=== PATIENT | female | born 1980 | race Hispanic/Latino ===

== ENCOUNTER 2018-08-12 15:16 | Emergency (ER) | payer OTHER, SELFPAY ==
--- NOTE | 2018-08-12 17:41 | EDPHYS ---
Physician Documentation [facility] Name: Melia Tavares Age: 38 yrs Sex: Female : 1980 Arrival Date: 08/12/2018 Time: 15:21 Bed 11 Private MD: ED Physician Carlos Acevedo HPI: 08/12 16:40 This 38 yrs old Female presents to ER via Ambulatory with complaints of Cough, cp Fever. 16:40 The patient or guardian reports cough, that is intermittent, with no sputum. Onset: The cp symptoms/episode began/occurred 2 day(s) ago. Severity of symptoms: in the emergency department the symptoms are unchanged, despite home interventions. Associated signs and symptoms: Pertinent positives: chest pain, sore throat, Pertinent negatives: diarrhea, fever, vomiting. 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 - Social history:: Smoking status: Patient/guardian denies using tobacco. - Ebola Screening: : No symptoms or risks identified at this time. ROS: 16:45 Constitutional: Negative for chills, fever, poor PO intake. cp 16:45 Eyes: Negative for injury, pain, redness, and discharge. cp 16:45 ENT: Positive for sore throat, Negative for drainage from ear(s), ear pain, difficulty swallowing, difficulty handling secretions. 16:45 Respiratory: Positive for cough, Negative for shortness of breath, wheezing. 16:45 Abdomen/GI: Negative for abdominal pain, vomiting, diarrhea, constipation. 16:45 : Negative for urinary symptoms. 16:45 Skin: Negative for cellulitis, rash. 16:45 Neuro: Negative for headache, weakness. 16:45 All other systems are negative. Exam: 16:50 Constitutional: The patient appears in no acute distress, alert, awake, non-toxic, well cp developed, well nourished. 16:50 Head/Face: Normocephalic, atraumatic. cp 16:50 Eyes: Periorbital structures: appear normal, Conjunctiva: normal, no exudate, no injection, Sclera: no appreciated abnormality, Lids and lashes: appear normal, bilaterally. 16:50 ENT: External ear(s): are unremarkable, Ear canal(s): are normal, clear, TM's: bulging, is not appreciated, bilaterally, dullness, bilaterally, erythema, is not appreciated, bilaterally, Nose: is normal, Mouth: Lips: moist, Oral mucosa: moist, Posterior pharynx: Airway: no evidence of obstruction, patent, Tonsils: no enlargement, no exudate, swelling, is not appreciated, erythema, that is mild, exudate, is not appreciated, Voice: is normal. 16:50 Neck: ROM/movement: is normal, is supple, without pain, no range of motions limitations, no meningismus, no nuchal rigidity, Lymph nodes: no appreciated lymphadenopathy. 16:50 Chest/axilla: Inspection: normal, Palpation: is normal, no crepitus, no tenderness. 16:50 Cardiovascular: Rate: normal, Rhythm: regular. 16:50 Respiratory: the patient does not display signs of respiratory distress, Respirations: labored breathing, is not present, accessory muscle usage, is absent, intercostal retractions, are absent, splinting, is not noted, tachypnea, is not appreciated, Breath sounds: bronchial sounds, that are mild, are heard diffusely, decreased breath sounds, are not appreciated, stridor, is not appreciated, + upper airway congestion. wheezing: is not appreciated. 16:50 Abdomen/GI: Exam negative for discomfort, distension, guarding, Inspection: abdomen appears normal. 16:50 Back: pain, is absent, ROM is normal. 16:50 Skin: cellulitis, is not appreciated, no rash present. Vital Signs: 15:42 BP 132 / 66; Pulse 96; Resp 18 S; Temp 99.2(O); Pulse Ox 98% on R/A; Weight 90.72 kg aa5 (R); Height 5 ft. 2 in. (157.48 cm) (R); Pain 8/10; 15:42 Body Mass Index 36.58 (90.72 kg, 157.48 cm) aa5 MDM: 15:57 Patient medically screened. cp 17:00 Differential Diagnosis: Bronchitis Influenza Upper Respiratory Infection Otitis Media cp Viral Syndrome Pneumonia. 17:40 Data reviewed: vital signs, nurses notes, lab test result(s), and as a result, I will cp discharge patient. 17:40 Counseling: I had a detailed discussion with the patient and/or guardian regarding: the cp historical points, exam findings, and any diagnostic results supporting the discharge/admit diagnosis, lab results, to return to the emergency department if symptoms worsen or persist or if there are any questions or concerns that arise at home. 08/12 16:34 Order name: Influenza Screen (a \T\ B); Complete Time: 17:40 08/12 16:34 Order name: Strep; Complete Time: 17:40 08/12 17:40 Interpretation: Reviewed. cp Administered Medications: No medications were administered Disposition: 08/13 11:43 Co-signature as Attending Physician, Carlos Acevedo MD. Disposition: 08/12/18 17:41 Discharged to Home. Impression: Streptococcal pharyngitis, Cough. - Condition is Stable. - Discharge Instructions: Strep Throat, Cough, Adult. - Prescriptions for Amoxicillin 875 mg Oral Tablet - take 1 tablet by ORAL route every 12 hours for 10 days; 20 tablet. Tessalon Perles 100 mg Oral Capsule - take 1 capsule by ORAL route every 8 hours As needed; 20 capsule. Albuterol Sulfate 90 mcg/actuation - inhale 1-2 puff by INHALATION route every 4-6 hours; 1 Inhaler. - Work release form, Medication Reconciliation Form, Thank You Letter, Antibiotic Education, Prescription Opioid Use form. - Follow up: Private Physician; When: 2 - 3 days; Reason: Recheck today's complaints. - Problem is new. - Symptoms have improved. Signatures: Dispatcher [employer] EDCaleb Arreaga RN RN sg Tessa Kay RN RN aa5 Luis Nash PA PA cp Starr, Gregory, MD MD gs Corrections: (The following items were deleted from the chart) 08/12 17:47 17:41 08/12/2018 17:41 Discharged to Home. Impression: Streptococcal pharyngitis; sg Cough. Condition is Stable. Forms are Medication Reconciliation Form, Thank You Letter, Antibiotic Education, Prescription Opioid Use. Follow up: Private Physician; When: 2 - 3 days; Reason: Recheck today's complaints. Problem is new. Symptoms have improved. cp
--- NOTE | 2018-08-12 17:41 | ER ---
Nurse's Notes [facility] Name: Melia Tavares Age: 38 yrs Sex: Female : 1980 Arrival Date: 08/12/2018 Time: 15:21 Bed 11 Private MD: Diagnosis: Streptococcal pharyngitis;Cough Presentation: 08/12 15:40 Presenting complaint: Patient states: sore throat, cough, and fever that began aa5 . Transition of care: patient was not received from another setting of care. Onset of symptoms was August 2018. Risk Assessment: Do you want to hurt yourself or someone else? Patient reports no desire to harm self or others. Initial Sepsis Screen: Does the patient meet any 2 criteria? No. Patient's initial sepsis screen is negative. Does the patient have a suspected source of infection? No. Patient's initial sepsis screen is negative. Care prior to arrival: None. 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 - Social history:: Smoking status: Patient/guardian denies using tobacco. - Ebola Screening: : No symptoms or risks identified at this time. Screenin:32 Abuse screen: Denies threats or abuse. Denies injuries from another. Nutritional iw screening: No deficits noted. Tuberculosis screening: No symptoms or risk factors identified. Fall Risk None identified. Assessment: 17:00 General: Appears in no apparent distress. Behavior is calm, cooperative. Pain: iw Complains of pain in throat. Neuro: Level of Consciousness is awake, alert, obeys commands, Oriented to person, place, time, situation, Moves all extremities. Full function. Cardiovascular: Patient's skin is warm and dry. Respiratory: Respiratory effort is even, unlabored, Respiratory pattern is regular, symmetrical. Derm: Skin is intact, is healthy with good turgor. Derm: Musculoskeletal: Range of motion: intact in all extremities. Vital Signs: 15:42 BP 132 / 66; Pulse 96; Resp 18 S; Temp 99.2(O); Pulse Ox 98% on R/A; Weight 90.72 kg aa5 (R); Height 5 ft. 2 in. (157.48 cm) (R); Pain 8/10; 15:42 Body Mass Index 36.58 (90.72 kg, 157.48 cm) aa5 ED Course: 15:21 Patient arrived in ED. mr 15:41 Triage completed. aa5 15:41 Arm band placed on. aa5 15:55 Rupinder Viramontes, RN is Primary Nurse. iw 15:57 Luis Nash PA is PHCP. cp 15:57 Carlos Acevedo MD is Attending Physician. cp 17:15 Patient has correct armband on for positive identification. Bed in low position. Call sg light in reach. Pulse ox on. NIBP on. 17:32 No provider procedures requiring assistance completed. Patient did not have IV access iw during this emergency room visit. Administered Medications: No medications were administered Outcome: 17:40 Discharged to home ambulatory, with family. sg 17:40 Condition: good 17:40 Discharge instructions given to patient, Instructed on discharge instructions, follow up and referral plans. medication usage, safety practices, Demonstrated understanding of instructions, follow-up care, medications, Prescriptions given X 3. 17:41 Discharge ordered by MD. cp 17:47 Patient left the ED. sg Signatures: Caleb Berger RN RN sg Rivera, Mary mr Rupinder Viramontes, RN JEANNE Tessa Kay RN RN [facility] Luis Nash PA PA cp
[2018-08-12 18:04] VITALS: BP 132/66; TEMP 99.2; O2SAT 98
== END 2018-08-12 17:47 | disposition home or self-care (01) ==
LOC: ER 15:16
DX: J02.0 Streptococcal pharyngitis (principal); R05 Cough
CPT/HCPCS: 87081; 87804; 99283

== ENCOUNTER 2019-02-20 20:39 | Observation (INO) | payer SELFPAY ==
[2019-02-20 21:17] LABS: Absolute Lymphocytes (CBC) 3.4 K/uL (0.7-4.9); Absolute Monocytes 0.9 K/uL (0.1-1.3); Absolute Neutrophil 7.1 K/uL (1.8-8.0); Basophils % 0.8 % (0-1.3); Eosinophils % 1.6 % (0-4.4); Hematocrit 41.9 % (36.0-45.0); Lymphocytes % 29.3 % (15.3-44.8); Monocytes % 7.8 % (3.3-12.3); RBC Red Blood Cell Count 4.56 M/uL (3.86-4.86)
[2019-02-20 21:18] LABS: Protime INR 0.99
[2019-02-20 21:34] LABS: ALT/SGPT 44 U/L (12-78); AST/SGOT 24 U/L (15-37); Albumin 3.7 g/dL (3.4-5.0); Alkaline Phosphatase 89 U/L (45-117); BUN Blood Urea Nitrogen 12 mg/dL (7-18); Bicarbonate 25 mmol/L (21-32); Bilirubin Direct < 0.1 mg/dL (0-0.2); Bilirubin Total 0.3 mg/dL (0.2-1.0); Glucose Level 313 mg/dL (74-106); NT PRO-BNP 7 pg/mL (<125); Potassium 3.5 mmol/L (3.5-5.1); Protein, Total 7.4 g/dL (6.4-8.2); Sodium Level 138 mmol/L (136-145); Troponin (Emerg Dept Use Only) < 0.02 ng/mL (0.0-0.045)
[2019-02-20] MEDS ORDERED: NA CHLORIDE 0.9% 1,000 ML ONE (22:07)
--- NOTE | 2019-02-20 23:02 | EDPHYS ---
Physician Documentation [facility] Name: Melia Tavares Age: 38 yrs Sex: Female : 1980 Arrival Date: 02/20/2019 Time: 20:41 Bed 8 Private MD: ED Physician Luis Mckay HPI: 02/20 21:45 This 38 yrs old Female presents to ER via EMS with complaints of Chest Pain > jr8 30 y/o. 21:45 The patient or guardian reports chest pain that is located primarily in the anterior jr8 chest wall, right. The pain does not radiate. Associated signs and symptoms: The patient has no apparent associated signs or symptoms. The chest pain is described as a pressure. Duration: The patient or guardian reports a single episode, that is now resolved. Modifying factors: The symptoms are alleviated by ASA, 81mg X4. NTG, X1. the symptoms are aggravated by nothing. Severity of pain: At its worst the pain was moderate in the emergency department the pain has resolved. The patient has not experienced similar symptoms in the past. The patient has not recently seen a physician. Historical: - Allergies: 20:55 No Known Allergies; aa1 - Home Meds: 20:55 Vitamin B-12 Oral daily [Active]; aa1 - PMHx: 20:55 Asthma; aa1 - PSHx: 20:55 Tubal ligation; aa1 - Immunization history:: Flu vaccine is not up to date. - Social history:: Smoking status: Patient uses tobacco products, denies chronic smoking, but will smoke occasionally. - Ebola Screening: : No symptoms or risks identified at this time. ROS: 21:45 Eyes: Negative for injury, pain, redness, and discharge, ENT: Negative for injury, jr8 pain, and discharge, Neck: Negative for injury, pain, and swelling, Respiratory: Negative for shortness of breath, cough, wheezing, and pleuritic chest pain, Abdomen/GI: Negative for abdominal pain, nausea, vomiting, diarrhea, and constipation, Back: Negative for injury and pain, MS/Extremity: Negative for injury and deformity, Skin: Negative for injury, rash, and discoloration, Neuro: Negative for headache, weakness, numbness, tingling, and seizure. 21:45 Cardiovascular: Positive for chest pain, Negative for edema, orthopnea, palpitations, paroxysmal nocturnal dyspnea. Exam: 21:45 Eyes: Pupils equal round and reactive to light, extra-ocular motions intact. Lids and jr8 lashes normal. Conjunctiva and sclera are non-icteric and not injected. Cornea within normal limits. Periorbital areas with no swelling, redness, or edema. ENT: Nares patent. No nasal discharge, no septal abnormalities noted. Tympanic membranes are normal and external auditory canals are clear. Oropharynx with no redness, swelling, or masses, exudates, or evidence of obstruction, uvula midline. Mucous membranes moist. Neck: Trachea midline, no thyromegaly or masses palpated, and no cervical lymphadenopathy. Supple, full range of motion without nuchal rigidity, or vertebral point tenderness. No Meningismus. Cardiovascular: Regular rate and rhythm with a normal S1 and S2. No gallops, murmurs, or rubs. Normal PMI, no JVD. No pulse deficits. Respiratory: Lungs have equal breath sounds bilaterally, clear to auscultation and percussion. No rales, rhonchi or wheezes noted. No increased work of breathing, no retractions or nasal flaring. Abdomen/GI: Soft, non-tender, with normal bowel sounds. No distension or tympany. No guarding or rebound. No evidence of tenderness throughout. Back: No spinal tenderness. No costovertebral tenderness. Full range of motion. Skin: Warm, dry with normal turgor. Normal color with no rashes, no lesions, and no evidence of cellulitis. MS/ Extremity: Pulses equal, no cyanosis. Neurovascular intact. Full, normal range of motion. Neuro: Awake and alert, GCS 15, oriented to person, place, time, and situation. Cranial nerves II-XII grossly intact. Motor strength 5/5 in all extremities. Sensory grossly intact. Cerebellar exam normal. Normal gait. Vital Signs: 20:44 BP 139 / 88; Pulse 88; Resp 18; Temp 98.5; Pulse Ox 97% on R/A; Weight 94.8 kg; Height aa1 5 ft. 2 in. (157.48 cm); Pain 0/10; 21:30 BP 125 / 78; Pulse 89; Resp 18; Pulse Ox 97% on R/A; Pain 0/10; aa1 22:29 BP 129 / 84; Pulse 87; Resp 16; Pulse Ox 100% on R/A; Pain 0/10; [facility] 23:13 BP 132 / 84; Pulse 84; Resp 18; Pulse Ox 99% on R/A; Pain 0/10; [facility] 02/21 00:30 BP 123 / 74; Pulse 82; Resp 16; Temp 98.2; Pulse Ox 98% on R/A; Pain 0/10; [facility] 02/20 20:44 Body Mass Index 38.23 (94.80 kg, 157.48 cm) [facility] MDM: 02/20 20:45 Patient medically screened. 23:00 HEART Score: History: Moderately Suspicious (1), ECG: Normal (0), Age: < or = 45 years jr (0), Risk Factors: 1 or 2 risk factors (1), [DM] [+ Family HX] Troponin: < or = 1 x Normal Limit (0), Total Score =. Data reviewed: vital signs, nurses notes, lab test result(s), EKG, radiologic studies, plain films. Data interpreted: Pulse oximetry: on room air is 100 %. Interpretation: normal. Counseling: I had a detailed discussion with the patient and/or guardian regarding: the historical points, exam findings, and any diagnostic results supporting the discharge/admit diagnosis, lab results, radiology results, the need for further work-up and treatment in the hospital. 02/20 20:45 Order name: CBC with Diff; Complete Time: 21:23 [facility] 02/20 20:45 Order name: LFT's; Complete Time: 21:39 [facility] 02/20 20:45 Order name: Magnesium; Complete Time: 21:39 [facility] 02/20 20:45 Order name: NT PRO-BNP; Complete Time: 21:39 [facility] 02/20 20:45 Order name: PT-INR; Complete Time: 21:23 [facility] 02/20 20:42 Order name: EKG; Complete Time: 20:42 [facility] 02/20 20:45 Order name: Troponin (emerg Dept Use Only); Complete Time: 21:39 [facility] 02/20 20:45 Order name: XRAY Chest (1 view) [facility] 02/20 20:46 Order name: Basic Metabolic Panel; Complete Time: 21:39 [facility] 02/21 00:33 Order name: Echo with Doppler [facility] 02/21 00:33 Order name: Lipid Profile [facility] 02/20 20:42 Order name: EKG - Nurse/Tech; Complete Time: 20:55 aa 02/20 20:45 Order name: Cardiac monitoring; Complete Time: 20:55 [facility] 02/20 20:45 Order name: IV Saline Lock; Complete Time: 20:55 jr 02/20 20:45 Order name: Labs collected and sent; Complete Time: 21:03 [facility] 02/20 20:45 Order name: O2 Per Protocol; Complete Time: 20:55 [facility] 02/20 20:45 Order name: O2 Sat Monitoring; Complete Time: 20:55 [facility] 02/21 00:33 Order name: EKG Electrocardiogram [facility] 02/21 00:34 Order name: EKG Electrocardiogram [facility] Administered Medications: :55 Drug: NS 0.9% 1000 ml Route: IV; Rate: 1000 ml; Site: left antecubital; cc3 23:00 Follow up: IV Status: Completed infusion; IV Intake: 1000ml aa1 Disposition: 02/21 06:42 Co-signature as Attending Physician, Luis Mckay MD I agree with the assessment and sabrina plan of care. Disposition: 02/20/19 23:02 Hospitalization ordered by Renetta Jose for Observation. Preliminary diagnosis is Chest pain, unspecified. - Bed requested for Telemetry/MedSurg (observation). - Status is Observation. aa1 - Condition is Stable. - Problem is new. - Symptoms have improved. UTI on Admission? No Signatures: Dispatcher [employer] [facility] Yari Harper RN RN aa1 Luis Mckay MD MD cha Roszak, Josh, PA PA jr8 Anum Johnson, RN RN Chana Carver cc3 Corrections: (The following items were deleted from the chart) 02/20 21:47 21:44 GLUCATNOID ordered. [facility] 02/21 00:43 02/20 23:02 Hospitalization Ordered by Renetta Jose MD for Observation. Preliminary cg diagnosis is Chest pain, unspecified. Bed requested for Telemetry/MedSurg (observation). Status is Observation. Condition is Stable. Problem is new. Symptoms have improved. UTI on Admission? No. jr8 02/21 01:21 00:43 02/20/2019 23:02 Hospitalization Ordered by Renetta Jose MD for Observation. aa1 Preliminary diagnosis is Chest pain, unspecified. Bed requested for Telemetry/MedSurg (observation). Status is Observation. Condition is Stable. Problem is new. Symptoms have improved. UTI on Admission? No. cg
--- NOTE | 2019-02-20 23:02 | ER ---
Nurse's Notes [facility] Name: Melia Tavares Age: 38 yrs Sex: Female : 1980 Arrival Date: 02/20/2019 Time: 20:41 Bed 8 Private MD: Diagnosis: Chest pain, unspecified Presentation: 02/20 20:44 Presenting complaint: EMS states: pt called reporting a sudden onset of chest pressure aa1 that began while she was feeding a kitten at approx 2000 this evening. Reports giving pt 324 mg ASA PO IT BUSINESS ANALYST and NTG 0.4 mg SL x 1 which resolved her from completely. Upon arrival to ED NAD noted. Denies any CP at this time. Transition of care: patient was not received from another setting of care. Onset of symptoms was February 20, 2019 at 20:00. Risk Assessment: Do you want to hurt yourself or someone else? Patient reports no desire to harm self or others. Initial Sepsis Screen: Does the patient meet any 2 criteria? No. Patient's initial sepsis screen is negative. Does the patient have a suspected source of infection? No. Patient's initial sepsis screen is negative. Care prior to arrival: Medication(s) given: ASA, 81 mg, x 4, Nitroglycerin, 0.4 mg SL x 1, IV initiated. 20 GA, in the left antecubital area. 20:44 Method Of Arrival: [facility]: [facility] aa1 20:44 Acuity: KATY 2 aa1 Historical: - Allergies: 20:55 No Known Allergies; aa1 - Home Meds: 20:55 Vitamin B-12 Oral daily [Active]; aa1 - PMHx: 20:55 Asthma; aa1 - PSHx: 20:55 Tubal ligation; aa1 - Immunization history:: Flu vaccine is not up to date. - Social history:: Smoking status: Patient uses tobacco products, denies chronic smoking, but will smoke occasionally. - Ebola Screening: : No symptoms or risks identified at this time. Screenin:48 Abuse screen: Denies threats or abuse. Denies injuries from another. Nutritional aa1 screening: No deficits noted. Tuberculosis screening: No symptoms or risk factors identified. Fall Risk IV access (20 points). Assessment: 20:48 General: Appears in no apparent distress. comfortable, obese, Behavior is calm, aa1 cooperative, appropriate for age. Pain: Complains of pain in mid-sternal area Pain radiates to anterior aspect of right upper chest Pain currently is 0 out of 10 on a pain scale. at worst was 8 out of 10 on a pain scale. Quality of pain is described as pressure, Pain began 1999 this evening Alleviated by medications. Neuro: Level of Consciousness is awake, alert, obeys commands, Oriented to person, place, time, situation, Moves all extremities. Full function Speech is normal. Cardiovascular: Denies diaphoresis, nausea, palpitations, shortness of breath, Heart tones S1 S2 present Capillary refill < 3 seconds Clubbing of nail beds is absent JVD is absent Patient's skin is warm and dry. Rhythm is regular Chest pain is alleviated by NTG, resolved IT BUSINESS ANALYST. Respiratory: Airway is patent Respiratory effort is even, unlabored, Respiratory pattern is regular, symmetrical, Breath sounds are clear bilaterally. GI: No signs and/or symptoms were reported involving the gastrointestinal system. : No signs and/or symptoms were reported regarding the genitourinary system. EENT: No signs and/or symptoms were reported regarding the EENT system. Derm: Skin is intact, is healthy with good turgor, Skin is pink, warm \T\ dry. Musculoskeletal: Circulation, motion, and sensation intact. Capillary refill < 3 seconds. 21:30 Reassessment: Patient appears in no apparent distress at this time. Patient and/or aa1 family updated on plan of care and expected duration. Pain level reassessed. Patient is alert, oriented x 3, equal unlabored respirations, skin warm/dry/pink. Awaiting lab results. 22:20 Reassessment: Patient appears in no apparent distress at this time. Patient and/or aa1 family updated on plan of care and expected duration. Pain level reassessed. Patient is alert, oriented x 3, equal unlabored respirations, skin warm/dry/pink. Awaiting provider reassessment. 23:13 Reassessment: Patient appears in no apparent distress at this time. Patient and/or aa1 family updated on plan of care and expected duration. Pain level reassessed. Patient is alert, oriented x 3, equal unlabored respirations, skin warm/dry/pink. Pt to be admitted to hospital; awaiting admission orders from Dr. Jose. 02/21 00:53 Reassessment: Patient appears in no apparent distress at this time. Patient and/or aa1 family updated on plan of care and expected duration. Pain level reassessed. Patient is alert, oriented x 3, equal unlabored respirations, skin warm/dry/pink. Attempted to call report, nurse will call back. 01:14 Reassessment: Patient appears in no apparent distress at this time. Patient is alert, aa1 oriented x 3, equal unlabored respirations, skin warm/dry/pink. Report given to JEANNE Cardozo. Vital Signs: 02/20 20:44 BP 139 / 88; Pulse 88; Resp 18; Temp 98.5; Pulse Ox 97% on R/A; Weight 94.8 kg; Height aa1 5 ft. 2 in. (157.48 cm); Pain 0/10; 21:30 BP 125 / 78; Pulse 89; Resp 18; Pulse Ox 97% on R/A; Pain 0/10; aa1 22:29 BP 129 / 84; Pulse 87; Resp 16; Pulse Ox 100% on R/A; Pain 0/10; aa1 23:13 BP 132 / 84; Pulse 84; Resp 18; Pulse Ox 99% on R/A; Pain 0/10; aa1 02/21 00:30 BP 123 / 74; Pulse 82; Resp 16; Temp 98.2; Pulse Ox 98% on R/A; Pain 0/10; aa1 02/20 20:44 Body Mass Index 38.23 (94.80 kg, 157.48 cm) aa1 ED Course: 02/20 20:41 Patient arrived in ED. aa1 20:44 Arm band placed on right wrist. Patient placed in an exam room, on a stretcher. EKG aa1 completed in triage. Results shown to MD. 20:44 Patient has correct armband on for positive identification. Placed in gown. Bed in low aa1 position. Call light in reach. Side rails up X2. nuclear monitoring technician on. Pulse ox on. NIBP on. Warm blanket given. Socks given. 20:44 Maintain EMS IV. Dressing intact. Site clean \T\ dry. Gauge \T\ site: 20g LAC. Patient aa 1 maintains SpO2 saturation greater than 95% on room air. 20:45 [facility]. jr8 20:45 Luis Mckay MD is Attending Physician. jr8 20:46 Triage completed. aa1 20:55 EKG done, by ED staff, reviewed by Magan GUEVARA. ag4 21:00 Initial lab(s) drawn, by me, sent to lab. aa1 21:02 Yari Harper RN is Primary Nurse. aa1 21:32 XRAY Chest (1 view) In Process Unspecified. EDMS 23:02 Renetta Jose MD is Hospitalizing Provider. jr8 02/21 00:52 No provider procedures requiring assistance completed. Patient admitted, IV remains in aa1 place. Administered Medications: 02/20 21:55 Drug: NS 0.9% 1000 ml Route: IV; Rate: 1000 ml; Site: left antecubital; cc3 23:00 Follow up: IV Status: Completed infusion; IV Intake: 1000ml aa1 Intake: 23:00 IV: 1000ml; Total: 1000ml. aa1 Outcome: 23:02 Decision to Hospitalize by Provider. jr8 02/21 01:19 Admitted to Tele accompanied by tech, via wheelchair, room 428, with chart, Report aa1 called to JEANNE Cardozo Condition: stable Instructed on the need for admit, Demonstrated understanding of instructions. 01:21 Patient left the ED. aa1 Signatures: Dispatcher [employer] Yari Castillo RN RN aa1 Magan Bernard PA PA jr8 hCana Carver cc3 Dorian Harper ag4
[2019-02-21] MEDS ORDERED: ALPRAZOLAM 0.25 MG TABLET PO PRN (00:29)
[2019-02-21] MEDS ORDERED: MORPHINE 4 MG/ML SYR IV PRN (00:29)
[2019-02-21 01:19] LABS: HDL Cholesterol 23 mg/dL (40-60); LDL Cholesterol, Calculated ND (<130)
[2019-02-21 01:32] VITALS: BMI 39.0
[2019-02-21 01:34] LABS: LDL, Direct 92 mg/dL (100-129)
--- NOTE | 2019-02-21 06:10 | P.HP ---
Certification for Inpatient Patient admitted to: Observation With expected LOS: <2 Midnights Patient will require the following post-hospital care: None Practitioner: I am a practitioner with admitting privileges, knowledge of patient current condition, hospital course, and medical plan of care. Services: Services provided to patient in accordance with Admission requirements found in Title 42 Section 412.3 of the Code of Federal Regulations Patient History Date of Service: 02/21/19 Reason for admission: Chest pain rule out acute coronary seemed History of Present Illness: Patient is a 38-year-old female came to the hospital with some chest pressure. She states that the feeling was like something was squeezing her. She decided to come into the emergency room for further evaluation. In the emergency room, her initial troponins and EKG did not reveal any abnormalities. She does have a strong family history of Coronary artery disease. Decision was made to observe the patient with serial troponins and an echocardiogram. If this is negative patient can get outpatient follow-up with Cardiology and further diagnostic studies per Cardiology recommendation. Allergies No Known Allergies Allergy (Unverified 10/07/12 18:07) Home Medications: Vitamin B Complex [B Complex] 1 each PO DAILY 02/21/19 - Past Medical/Surgical History Has patient received pneumonia vaccine in the past: No Diabetic: No Past Medical History: Patient denies medical history -: Tubal ligation - Family History Father Medical History: Heart disease - Social History Smoking Status: Current some day smoker Alcohol use: No CD- Drugs: No Caffeine use: Yes Place of Residence: Home Review of Systems 10-point ROS is otherwise unremarkable Physical Examination - Vital Signs Temperature: 97.9 F Blood Pressure: 118/71 Pulse: 85 Respirations: 18 Pulse Ox (%): 97 - Physical Exam General: Alert, In no apparent distress, Oriented x3 HEENT: Atraumatic, PERRLA, Mucous membr. moist/pink, EOMI, Sclerae nonicteric Neck: Supple, 2+ carotid pulse no bruit, No LAD, Without JVD or thyroid abnormality Respiratory: Clear to auscultation bilaterally, Normal air movement Cardiovascular: Regular rate/rhythm, Normal S1 S2, No murmurs Gastrointestinal: Normal bowel sounds, Soft and benign, Non-distended, No tenderness Musculoskeletal: No clubbing, No swelling, No tenderness Integumentary: No rashes Neurological: Normal gait, Normal speech, Normal strength at 5/5 x4 extr, Normal tone, Sensation intact, Cranial nerves 3-12 intact, Normal affect Lymphatics: No axilla or inguinal lymphadenopathy - Studies Laboratory Data (last 24 hrs) 02/20/19 21:00: Triglycerides 502 H, Cholesterol 170, LDL Cholesterol Direct 92 L, HDL Cholesterol 23 L, Cholesterol/HDL Ratio 7.39 02/20/19 21:00: PT 11.7, INR 0.99 02/20/19 21:00: WBC 11.7 H, Hgb 14.1, Hct 41.9, Plt Count 260 02/20/19 21:00: Sodium 138, Potassium 3.5, BUN 12, Creatinine 0.71, Glucose 313 H, Magnesium 2.0, Total Bilirubin 0.3, AST 24, ALT 44, Alkaline Phosphatase 89 Assessment & Plan - Problems (Diagnosis) (1) Chest pain, rule out acute myocardial infarction Current Visit: Yes Status: Acute - Plan 1. Serial troponins and EKG 2. Cardiology consultation 3. Echocardiogram and will need further outpatient testing if okay with Cardiology 4. Anti-platelet therapy, anti coagulation, beta-saira, statin, and O2 as needed 5. IV morphine for pain 6. Nitro p.r.n. 7. Lipid profile 8. DVT prophylaxis Discharge Plan: Home Plan to discharge in: 24 Hours - Advance Directives Does patient have a Living Will: No Does patient have a Durable POA for Healthcare: No - Code Status/Comfort Care Code Status Assessed: Yes Code Status: Full Code Critical Care: No Time Spent Managing PTS Care (In Minutes): 45
--- NOTE | 2019-02-21 08:01 | RAD REPORT ---
EXAM DESCRIPTION: RAD - Chest Single View - 02/20/2019 9:32 pm CLINICAL HISTORY: Chest pain, chest pressure COMPARISON: May 2010 TECHNIQUE: AP portable chest image was obtained 2104 hours . FINDINGS: Lung volumes are low. No peripheral mass, consolidation, failure or volume overload findin gs. Adjusting for shallow inspiration and large body habitus, lung markings are not substantially dif ferent from comparison. Heart and vasculature are normal. No measurable pleural effusion and no pneum othorax. No acute bony abnormality seen. No acute aortic findings suspected. IMPRESSION: No acute cardiopulmonary process. No significant interval change.
[2019-02-21] MEDS ORDERED: ENOXAPARIN 40 MG/0.4 ML SQ SCH (09:00)
[2019-02-21] MEDS ORDERED: ASPIRIN EC 81 MG TAB PO SCH (09:00)
[2019-02-21] MEDS ORDERED: METOPROLOL TAR 50 MG TAB PO SCH (09:00)
[2019-02-21 09:11] VITALS: O2SAT 100
--- NOTE | 2019-02-21 10:29 | EKG ---
Test Date: 2019-02-20 Test Time: 20:49:36 Card Room Manager: [id number] MEASUREMENT RESULTS: Intervals: Rate: 90 SC: 144 QRSD: 86 QT: 376 QTc: 459 [place]: P: 42 SC: 144 QRS: 10 T: 19 INTERPRETIVE STATEMENTS: Normal sinus rhythm Anterior infarct, age undetermined Abnormal ECG No previous ECG available for comparison Electronically Signed On 02-21-19 10:28:41 CDT by Rhys Davila
[2019-02-21 12:11] VITALS: BP 125/68; TEMP 98.1
--- NOTE | 2019-02-21 13:08 | P.SSS ---
Patient History Date of Service: 02/21/19 Reason for admission: Chest pain rule out acute coronary seemed History of Present Illness: Patient is a 38-year-old female came to the hospital with some chest pressure. She states that the feeling was like something was squeezing her. She decided to come into the emergency room for further evaluation. In the emergency room, her initial troponins and EKG did not reveal any abnormalities. She does have a strong family history of Coronary artery disease. Decision was made to observe the patient with serial troponins and an echocardiogram. If this is negative patient can get outpatient follow-up with Cardiology and further diagnostic studies per Cardiology recommendation. Allergies No Known Allergies Allergy (Unverified 10/07/12 18:07) Home medications list reviewed: Yes Home Medications: Vitamin B Complex [B Complex] 1 each PO DAILY 02/21/19 - Past Medical/Surgical History Has patient received pneumonia vaccine in the past: No Diabetic: No -: Tubal ligation - Family History Father -: Heart disease - Social History Smoking Status: Current some day smoker Alcohol use: No CD- Drugs: No Caffeine use: Yes Place of Residence: Home Review of Systems 10-point ROS is otherwise unremarkable Physical Examination - Vital Signs Temperature: 98.1 F Blood Pressure: 125/68 Pulse: 83 Respirations: 18 Pulse Ox (%): 97 - Physical Exam General: Alert, In no apparent distress, Oriented x3, Obese HEENT: Atraumatic, PERRLA, Mucous membr. moist/pink, EOMI, Sclerae nonicteric Neck: Supple, 2+ carotid pulse no bruit, No LAD, Without JVD or thyroid abnormality Respiratory: Clear to auscultation bilaterally, Normal air movement Cardiovascular: Regular rate/rhythm, Normal S1 S2 Gastrointestinal: Normal bowel sounds, No tenderness Musculoskeletal: No tenderness Integumentary: No rashes Neurological: Normal gait, Normal speech, Normal strength at 5/5 x4 extr, Normal tone, Normal affect Lymphatics: No axilla or inguinal lymphadenopathy - Studies Laboratory Data (last 24 hrs) 02/20/19 21:00: Triglycerides 502 H, Cholesterol 170, LDL Cholesterol Direct 92 L, HDL Cholesterol 23 L, Cholesterol/HDL Ratio 7.39 02/20/19 21:00: PT 11.7, INR 0.99 02/20/19 21:00: WBC 11.7 H, Hgb 14.1, Hct 41.9, Plt Count 260 02/20/19 21:00: Sodium 138, Potassium 3.5, BUN 12, Creatinine 0.71, Glucose 313 H, Magnesium 2.0, Total Bilirubin 0.3, AST 24, ALT 44, Alkaline Phosphatase 89 Treatment Summary: Chest pain resolved. Trop negative x 1. Patient hemodynamically stable. Risk factors include obesity and family history. ECHO done, normal with EF of 63% Patient wanted to go home. She did well through out the stay. She was counseled on lifestyle modifications including diet, exercise and weight loss. All questions were answered and patient verbalized understanding. She was discharged in a safe and stable manner. - Disposition Discharge Date: 02/21/19 Condition: GOOD Patient Discharge Instructions: Please follow up with your primary care physician in 2-3 days. Please return to the Emergency room for worsening symptoms. Diet: AHA Activity: Ad jennifer
--- NOTE | 2019-02-21 13:32 | ECHO ---
HEIGHT: 5 ft 2 in WEIGHT: 213 lb 8 oz DATE OF STUDY: 02/21/[address]: Renetta Jose MD 2-DIMENSIONAL: YES M.MODE: YES DOPPLER: YES COLOR FLOW: YES TDS: NO PORTABLE: NO DEFINITY: NO BUBBLE STUDY: NO DIAGNOSIS: CHEST PAIN RULE OUT ACS CARDIAC HISTORY: CATHERIZATION: NO SURGERY: NO PROSTHETIC VALVE: NO PACEMAKER: NO MEASUREMENTS (cm) DIASTOLIC (NORMALS) SYSTOLIC (NORMALS) IVSd 0.9 (0.6-1.2) LA Diam 3.6 (1.9-4.0) LVEF 63% LVIDd 4.3 (3.5-5.7) LVIDs 2.9 (2.0-3.5) %FS 34% LVPWd 1.0 (0.6-1.2) Ao Diam 2.6 (2.0-3.7) 2 DIMENSIONAL ASSESSMENT: RIGHT ATRIUM: NORMAL LEFT ATRIUM: NORMAL RIGHT VENTRICLE: NORMAL LEFT VENTRICLE: NORMAL TRICUSPID VALVE: NORMAL MITRAL VALVE: NORMAL PULMONIC VALVE: NORMAL AORTIC VALVE: NORMAL PERICARDIAL EFFUSION: NONE AORTIC ROOT: NORMAL LEFT VENTRICULAR WALL MOTION: NORMAL DOPPLER/COLOR FLOW: NORMAL COMMENTS: NORMAL 2D ECHOCARDIOGRAM WITH DOPPLER. TECHNOLOGIST: Allan FIELDS
== END 2019-02-21 16:39 | disposition home or self-care (01) ==
LOC: ER 20:39 → ERHOLD 02-21 00:51 → 4TH 02-21 01:15
PROVIDERS: ADMIT Hospitalist; ATTEND Family Medicine
DX: R07.9 Chest pain, unspecified (principal); R94.31 Abnormal electrocardiogram [ECG] [EKG]; E66.9 Obesity, unspecified; Z68.38 Body mass index [BMI] 38.0-38.9, adult; F17.200 Nicotine dependence, unspecified, uncomplicated; Z82.49 Family history of ischemic heart disease and other diseases of the circulatory system
CPT/HCPCS: 36415; 71045; 80048; 80061; 80076; 83735; 83880; 84484; 85025; 85610; 93005; 93306; 96360; 99285; G0378; J1650; J7030

== ENCOUNTER 2019-10-22 21:54 | Emergency (ER) | payer SELFPAY ==
[2019-10-22] MEDS ORDERED: SMZ./TMP. 800/160 MG TABLET ONE (23:00)
[2019-10-22] MEDS ORDERED: LIDOCAINE 2% MPF 5 ML VIAL ONE ×2 (23:00→23:35)
[2019-10-22] MEDS ORDERED: BUPIVACAINE 0.5% PF 10 ML VIAL ONE (23:01)
[2019-10-22] MEDS ORDERED: DOXYCYCLINE 100 MG CAP PO ONE (23:01)
[2019-10-22] MEDS ORDERED: BACI/NEOMYCIN/POLY OINT 15GM TOP ONE (23:01)
--- NOTE | 2019-10-22 23:25 | EDPHYS ---
Physician Documentation [facility] Name: Melia Tavarse Age: 39 yrs Sex: Female : 1980 Arrival Date: 10/22/2019 Time: 21:59 Bed 25 Private MD: ED Physician Luis Mckay HPI: 10/22 22:36 This 39 yrs old Female presents to ER via Wheelchair with complaints of Foot sabrina Pain. 22:36 The patient presents with decreased range of motion, pain, swelling, tenderness. The sabrina complaints affect the left foot, Left first toenail. Context: The problem was sustained inside. Onset: The symptoms/episode began/occurred 3 day(s) ago. Modifying factors: The symptoms are alleviated by elevation of extremity, the symptoms are aggravated by weight bearing, movement. Associated signs and symptoms: The patient has no apparent associated signs or symptoms. Severity of symptoms: At their worst the symptoms were mild, moderate, in the emergency department the symptoms are unchanged. The patient has not experienced similar symptoms in the past. DRUG PURCHASER: 10/23 00:16 unknown jv1 Historical: - Allergies: 10/22 22:10 No Known Allergies; dm5 - Home Meds: 22:10 Metformin Oral [Active]; dm5 - PMHx: 22:10 Asthma; Diabetes - NIDDM; dm5 - PSHx: 22:10 None; dm5 - Immunization history:: Adult Immunizations up to date. - Social history:: Smoking status: Patient denies any tobacco usage or history of. - Family history:: not pertinent. - Ebola Screening: : No symptoms or risks identified at this time. ROS: 22:36 Constitutional: Negative for fever, chills, and weight loss, Eyes: Negative for injury, sabrina pain, redness, and discharge, ENT: Negative for injury, pain, and discharge, Neck: Negative for injury, pain, and swelling, Cardiovascular: Negative for chest pain, palpitations, and edema, Respiratory: Negative for shortness of breath, cough, wheezing, and pleuritic chest pain, Abdomen/GI: Negative for abdominal pain, nausea, vomiting, diarrhea, and constipation, Back: Negative for injury and pain, : Negative for injury, bleeding, discharge, and swelling, Skin: Negative for injury, rash, and discoloration, Neuro: Negative for headache, weakness, numbness, tingling, and seizure, Psych: Negative for depression, anxiety, suicide ideation, homicidal ideation, and hallucinations, Allergy/Immunology: Negative for hives, rash, and allergies, Endocrine: Negative for neck swelling, polydipsia, polyuria, polyphagia, and marked weight changes, Hematologic/Lymphatic: Negative for swollen nodes, abnormal bleeding, and unusual bruising. 22:36 MS/extremity: Positive for erythema, pain, swelling, tenderness, of the Left first toenail. Exam: 22:36 Constitutional: This is a well developed, well nourished patient who is awake, alert, sabrina and in no acute distress. Head/Face: Normocephalic, atraumatic. Eyes: Pupils equal round and reactive to light, extra-ocular motions intact. Lids and lashes normal. Conjunctiva and sclera are non-icteric and not injected. Cornea within normal limits. Periorbital areas with no swelling, redness, or edema. ENT: Nares patent. No nasal discharge, no septal abnormalities noted. Tympanic membranes are normal and external auditory canals are clear. Oropharynx with no redness, swelling, or masses, exudates, or evidence of obstruction, uvula midline. Mucous membranes moist. Neck: Trachea midline, no thyromegaly or masses palpated, and no cervical lymphadenopathy. Supple, full range of motion without nuchal rigidity, or vertebral point tenderness. No Meningismus. Chest/axilla: Normal chest wall appearance and motion. Nontender with no deformity. No lesions are appreciated. Cardiovascular: Regular rate and rhythm with a normal S1 and S2. No gallops, murmurs, or rubs. Normal PMI, no JVD. No pulse deficits. Respiratory: Lungs have equal breath sounds bilaterally, clear to auscultation and percussion. No rales, rhonchi or wheezes noted. No increased work of breathing, no retractions or nasal flaring. Abdomen/GI: Soft, non-tender, with normal bowel sounds. No distension or tympany. No guarding or rebound. No evidence of tenderness throughout. Back: No spinal tenderness. No costovertebral tenderness. Full range of motion. Skin: Warm, dry with normal turgor. Normal color with no rashes, no lesions, and no evidence of cellulitis. Neuro: Awake and alert, GCS 15, oriented to person, place, time, and situation. Cranial nerves II-XII grossly intact. Motor strength 5/5 in all extremities. Sensory grossly intact. Cerebellar exam normal. Normal gait. Psych: Awake, alert, with orientation to person, place and time. Behavior, mood, and affect are within normal limits. 22:36 Musculoskeletal/extremity: ROM: limited active range of motion due to pain, limited passive range of motion due to pain, Circulation is intact in all extremities. Severe pain noted. Compartment Syndrome exam of affected extremity: is normal. Weight bearing: able to fully bear weight, DVT Exam: negative Homans' sign noted on exam, no appreciated bluish discoloration, no erythema, no increased warmth, pain, swelling, tenderness. Vital Signs: 22:12 BP 128 / 72; Pulse 93; Resp 18; Temp 98.3; Pulse Ox 98% on R/A; Pain 7/10; jv1 23:19 BP 110 / 70; Pulse 94; Resp 18; Pulse Ox 100% on R/A; mg2 10/23 00:16 BP 112 / 72; Pulse 88; Resp 18; Temp 98.5; Pulse Ox 98% ; Pain 0/10; jv1 Procedures: 10/22 22:40 I \T\ D: Incision and drainage was performed for an abscess of the left Left first sabrina toenail Prepped with Betadine, Anesthetized with 5 ml's 1% Lidocaine w/ Epi. Incised with #11 blade. the patient tolerated the procedure well. MDM: 22:05 Patient medically screened. [facility] 22:39 Data reviewed: vital signs, nurses notes, lab test result(s). [facility] 10/22 23:33 Order name: Urine Dipstick--Ancillary (enter results) [facility] 10/22 23:33 Order name: Urine --Ancillary (enter results) [facility] 10/22 22:35 Order name: Dressing - Wound; Complete Time: 23:39 [facility] 10/22 22:35 Order name: Gloves, Sterile; Complete Time: 23:39 [facility] 10/22 22:35 Order name: Setup Suture Tray; Complete Time: 23:39 [facility] 10/22 22:36 Order name: Wound Care; Complete Time: 23:39 [facility] 10/22 22:36 Order name: Urine Dipstick-Ancillary (obtain specimen); Complete Time: 23:38 [facility] 10/22 22:36 Order name: Urine Test (obtain specimen); Complete Time: 23:38 [facility] 10/22 22:36 Order name: Post-op shoe; Complete Time: 23:39 [facility] Administered Medications: 22:45 Drug: Doxycycline 200 mg Route: PO; jv1 23:39 Follow up: Response: No adverse reaction jv1 22:50 Drug: Bactrim (160 mg-800 mg (DS) 1 tablet Route: PO; jv1 23:39 Follow up: Response: No adverse reaction jv1 23:30 Drug: Lidocaine (2 %) 10 ml Volume: 5 ml; Route: Infiltration; jv1 10/23 00:20 Follow up: Response: No adverse reaction; Pain is decreased v1 10/22 23:35 Drug: Bupivacaine (0.5 %) 10 ml Volume: 10 ml; Route: Infiltration; jv1 10/23 00:21 Follow up: Response: No adverse reaction; Pain is decreased jv1 00:10 Drug: Neosporin Ointment 1 application Route: Topical; Site: wound; jv1 Disposition: 10/22/19 23:25 Discharged to Home. Impression: Ingrowing nail - removed, Type 2 diabetes mellitus. - Condition is Stable. - Discharge Instructions: Type 2 Diabetes Mellitus, Diagnosis, Adult, Ingrown Toenail, Fingernail or Toenail Removal, Adult, Type 2 Diabetes Mellitus, Diagnosis, Adult, [id number], Type 2 Diabetes Mellitus, Self Care, Adult, Type 2 Diabetes Mellitus, Self Care, Adult, [id number], Fingernail or Toenail Removal, Care After. - Prescriptions for Tylenol- Codeine #3 300-30 mg Oral Tablet - take 2 tablets by ORAL route every 6 hours As needed; 26 tablet. Doxycycline Hyclate 100 mg Oral Tablet - take 1 tablet by ORAL route every 12 hours; 20 tablet. Bactrim DS 800- 160 mg Oral Tablet - take 1 tablet by ORAL route every 12 hours for 10 days; 20 tablet. - Medication Reconciliation Form, Thank You Letter, Antibiotic Education, Prescription Opioid Use form. - Follow up: Private Physician; When: 2 - 3 days; Reason: Recheck today's complaints, Continuance of care, Re-evaluation by your physician. Follow up: Dr. Delfino Eid; When: 2 - 3 days; Reason: Recheck today's complaints, Re-evaluation by your physician. - Problem is new. - Symptoms have improved. Signatures: Dispatcher [employer] Romy Mccartney, RN RN [email or web address] Luis Mckay MD MD cha Vicente, Joyce RN RN jv1 Corrections: (The following items were deleted from the chart) 10/22 23:25 23:25 10/22/2019 23:25 Discharged to Home. Impression: Ingrowing nail - removed. [facility] Condition is Stable. Discharge Instructions: Ingrown Toenail, Type 2 Diabetes Mellitus, Diagnosis, Adult, Fingernail or Toenail Removal, Adult, Type 2 Diabetes Mellitus, Diagnosis, Adult, [id number], Type 2 Diabetes Mellitus, Self Care, Adult, Type 2 Diabetes Mellitus, Self Care, Adult, [id number], Fingernail or Toenail Removal, Care After. Prescriptions for Tylenol-Codeine #3 300-30 mg Oral Tablet - take 2 tablets by ORAL route every 6 hours As needed; 26 tablet, Doxycycline Hyclate 100 mg Oral Tablet - take 1 tablet by ORAL route every 12 hours; 20 tablet, Bactrim DS 800-160 mg Oral Tablet - take 1 tablet by ORAL route every 12 hours for 10 days; 20 tablet. and Forms are Medication Reconciliation Form, Thank You Letter, Antibiotic Education, Prescription Opioid Use. Follow up: Private Physician; When: 2 - 3 days; Reason: Recheck today's complaints, Continuance of care, Re-evaluation by your physician. Follow up: Dr. Delfino Eid; When: 2 - 3 days; Reason: Recheck today's complaints, Re-evaluation by your physician. Problem is new. Symptoms have improved. [facility] 10/23 00:21 10/22 23:25 10/22/2019 23:25 Discharged to Home. Impression: Ingrowing nail - removed; jv1 Type 2 diabetes mellitus. Condition is Stable. Discharge Instructions: Ingrown Toenail, Type 2 Diabetes Mellitus, Diagnosis, Adult, Fingernail or Toenail Removal, Adult, Type 2 Diabetes Mellitus, Diagnosis, Adult, [id number], Type 2 Diabetes Mellitus, Self Care, Adult, Type 2 Diabetes Mellitus, Self Care, Adult, Lcga-[id number], Fingernail or Toenail Removal, Care After. Prescriptions for Tylenol-Codeine #3 300-30 mg Oral Tablet - take 2 tablets by ORAL route every 6 hours As needed; 26 tablet, Doxycycline Hyclate 100 mg Oral Tablet - take 1 tablet by ORAL route every 12 hours; 20 tablet, Bactrim DS 800-160 mg Oral Tablet - take 1 tablet by ORAL route every 12 hours for 10 days; 20 tablet. and Forms are Medication Reconciliation Form, Thank You Letter, Antibiotic Education, Prescription Opioid Use. Follow up: Private Physician; When: 2 - 3 days; Reason: Recheck today's complaints, Continuance of care, Re-evaluation by your physician. Follow up: Dr. Delfino Eid; When: 2 - 3 days; Reason: Recheck today's complaints, Re-evaluation by your physician. Problem is new. Symptoms have improved. sabrina
--- NOTE | 2019-10-22 23:25 | ER ---
[facility] Name: Melia Tavares Age: 39 yrs Sex: Female : 1980 Arrival Date: 10/22/2019 Time: 21:59 Bed 25 Private MD: Diagnosis: Ingrowing nail-removed;Type 2 diabetes mellitus Presentation: 10/22 22:08 Presenting complaint: Patient states: pedicure 10/13/19, right great toe has been dm5 hurting ever since. Pt has been wearing open toed shoes until today when she wore close toed shoes. The pain got worse. Swelling and possible discharge noted from lateral edge of toenail. Transition of care: patient was not received from another setting of care. Onset of symptoms was October 13, 2019. 22:08 Acuity: KATY 4 dm5 22:08 Method Of Arrival: Wheelchair dm5 23:34 Risk Assessment: Do you want to hurt yourself or someone else? Patient reports no jv1 desire to harm self or others. Initial Sepsis Screen: Does the patient meet any 2 criteria? No. Patient's initial sepsis screen is negative. Does the patient have a suspected source of infection? Yes: Skin breakdown/wound. Care prior to arrival: None. Triage Assessment: 22:54 General: Behavior is calm, cooperative, appropriate for age. 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 - Social history:: Smoking status: Patient denies any tobacco usage or history of. - Family history:: not pertinent. - Ebola Screening: : No symptoms or risks identified at this time. Screenin:34 Abuse screen: Denies threats or abuse. Nutritional screening: No deficits noted. jv1 Tuberculosis screening: No symptoms or risk factors identified. Fall Risk None identified. Assessment: 22:30 General: Appears in no apparent distress. uncomfortable, well groomed. Pain: Complains jv1 of pain in right foot Pain does not radiate. Pain currently is 7 out of 10 on a pain scale. Quality of pain is described as aching, Pain began 2-3 days ago. Neuro: Level of Consciousness is awake, alert, obeys commands, Oriented to person, place, time, situation, Counseling Psychologist are equal bilaterally Moves all extremities. Cardiovascular: Denies chest pain. Respiratory: Breath sounds are clear bilaterally. GI: Abdomen is round non-distended, Bowel sounds present X 4 quads. Abd is soft and non tender. : No signs and/or symptoms were reported regarding the genitourinary system. EENT: No signs and/or symptoms were reported regarding the EENT system. Derm: inflammation on the right big toe. Musculoskeletal: Circulation, motion, and sensation intact. Capillary refill < 3 seconds. 23:16 Reassessment: Patient appears in no apparent distress at this time. No changes from jv1 previously documented assessment. Patient and/or family updated on plan of care and expected duration. Pain level reassessed. Patient is alert, oriented x 3, equal unlabored respirations, skin warm/dry/pink. 23:19 Reassessment: Patient appears in no apparent distress at this time. Patient and/or mg2 family updated on plan of care and expected duration. Pain level reassessed. Patient is alert, oriented x 3, equal unlabored respirations, skin warm/dry/pink. General:. 23:33 Reassessment: provider in the room with patient to do incision and drainage. jv1 10/23 00:15 Reassessment: Patient appears in no apparent distress at this time. No changes from jv1 previously documented assessment. Patient and/or family updated on plan of care and expected duration. Pain level reassessed. Patient is alert, oriented x 3, equal unlabored respirations, skin warm/dry/pink. Patient denies pain at this time. provider just finished I\T\D. 00:15 Reassessment: wound dressing applied. jv1 Vital Signs: 10/22 22:12 BP 128 / 72; Pulse 93; Resp 18; Temp 98.3; Pulse Ox 98% on R/A; Pain 7/10; jv1 23:19 BP 110 / 70; Pulse 94; Resp 18; Pulse Ox 100% on R/A; mg2 10/23 00:16 BP 112 / 72; Pulse 88; Resp 18; Temp 98.5; Pulse Ox 98% ; Pain 0/10; jv1 ED Course: 10/22 21:59 Patient arrived in ED. es 22:05 Luis Mckay MD is Attending Physician. [facility] 22:09 Triage completed. dm5 22:34 Arm band placed on right wrist. jv1 22:53 Patient has correct armband on for positive identification. Placed in gown. Bed in low jv1 position. Call light in reach. Adult w/ patient. 23:25 Delfino Eid DPM is Referral Physician. sabrina 23:40 Urine --Ancillary (enter results) Sent. jv1 23:40 Urine Dipstick--Ancillary (enter results) Sent. jv1 10/23 00:15 Assist provider with I \T\ D: of an abscess on right big toe. Patient did not have IV jv1 access during this emergency room visit. Administered Medications: 10/22 22:45 Drug: Doxycycline 200 mg Route: PO; jv1 23:39 Follow up: Response: No adverse reaction jv1 22:50 Drug: Bactrim (160 mg-800 mg (DS) 1 tablet Route: PO; jv1 23:39 Follow up: Response: No adverse reaction jv1 23:30 Drug: Lidocaine (2 %) 10 ml Volume: 5 ml; Route: Infiltration; jv1 10/23 00:20 Follow up: Response: No adverse reaction; Pain is decreased jv1 10/22 23:35 Drug: Bupivacaine (0.5 %) 10 ml Volume: 10 ml; Route: Infiltration; jv1 10/23 00:21 Follow up: Response: No adverse reaction; Pain is decreased jv1 00:10 Drug: Neosporin Ointment 1 application Route: Topical; Site: wound; jv1 Outcome: 10/22 23:25 Discharge ordered by . [facility] 10/23 00:16 Discharged to home ambulatory, with family. jv1 Condition: stable Discharge instructions given to patient, family, Instructed on discharge instructions, follow up and referral plans. medication usage, wound care, Demonstrated understanding of instructions, follow-up care, medications, wound care, Prescriptions given X 3. 00:21 Patient left the ED. jv1 Signatures: Romy Robledo RN RN dm5 Luis Mckay MD MD cha Salyer, Edna es Gardose, Michele, RN RN mg2 Vicente, Joyce, RN RN jv1 Corrections: (The following items were deleted from the chart) 10/22 23:41 23:33 Reassessment: provider in the room with patient. jv1 jv1
[2019-10-23 00:12] LABS: Urine Blood 2+ (NEG); Urine Glucose NEGATIVE (NEG); Urine Protein NEGATIVE (NEG)
[2019-10-23 06:28] VITALS: BP 112/72; TEMP 98.5; O2SAT 98
== END 2019-10-23 00:21 | disposition home or self-care (01) ==
LOC: ER 21:54
DX: L60.0 Ingrowing nail (principal); E11.9 Type 2 diabetes mellitus without complications
CPT/HCPCS: 81003; 81025; 99284

== ENCOUNTER 2019-11-18 11:25 | Emergency (ER) | payer SELFPAY ==
[2019-11-18] MEDS ORDERED: NA CHLORIDE 0.9% 1,000 ML ONE (12:01)
[2019-11-18 12:03] LABS: Absolute Lymphocytes (CBC) 4.1 K/uL (0.7-4.9); Basophils % 0.7 % (0-1.3); Hematocrit 42.2 % (36.0-45.0); Lymphocytes % 31.9 % (15.3-44.8); MPV 9.3 fL (7.6-11.3); RBC Red Blood Cell Count 4.62 M/uL (3.86-4.86)
[2019-11-18 12:08] LABS: Protime INR 1.02
--- NOTE | 2019-11-18 12:20 | RAD REPORT ---
EXAM DESCRIPTION: Valentino Single View11/18/2019 12:01 pm CLINICAL HISTORY: Chest pain COMPARISON: 2018 FINDINGS: The lungs appear clear of acute infiltrate. The heart is normal size IMPRESSION: No acute abnormalities displayed
[2019-11-18 12:28] LABS: ALT/SGPT 38 U/L (12-78); AST/SGOT 21 U/L (15-37); Albumin 4.2 g/dL (3.4-5.0); Alkaline Phosphatase 69 U/L (45-117); BUN Blood Urea Nitrogen 6 mg/dL (7-18); Bicarbonate 26 mmol/L (21-32); Bilirubin Direct < 0.1 mg/dL (0-0.2); Bilirubin Total 0.2 mg/dL (0.2-1.0); Glucose Level 176 mg/dL (74-106); Magnesium 1.9 mg/dL (1.8-2.4); Potassium 3.2 mmol/L (3.5-5.1); Protein, Total 8.2 g/dL (6.4-8.2); Sodium Level 139 mmol/L (136-145); Troponin (Emerg Dept Use Only) < 0.02 ng/mL (0.0-0.045)
--- NOTE | 2019-11-18 13:43 | EDPHYS ---
Physician Documentation [facility] Name: Melia Tavares Age: 39 yrs Sex: Female : 1980 Arrival Date: 11/18/2019 Time: 11:27 Bed 13 Private MD: ED Physician Luis Mckay HPI: 11/18 11:37 This 39 yrs old Female presents to ER via Ambulatory with complaints of Chest pm1 Wall Pain. 11:37 The patient or guardian reports chest pain that is located primarily in the anterior pm1 aspect of left upper chest. The pain does not radiate. Associated signs and symptoms: Pertinent positives: SOB yesterday, Pertinent negatives: abdominal pain, cough, diaphoresis, dizziness, headache, nausea, vomiting. The chest pain is described as "like a bruise". Duration: The patient or guardian reports multiple episodes, that have now resolved. Modifying factors: The symptoms are alleviated by massage and heating pad. the symptoms are aggravated by palpation of area. Severity of pain: in the emergency department the pain has resolved. The patient has not experienced similar symptoms in the past. The patient has not recently seen a physician. 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 - Coronavirus screen:: The patient has NOT traveled to [place] in the past 14 days. - Social history:: Smoking status: Patient reports the use of cigarette tobacco products, denies chronic smoking, but will smoke occasionally. - Ebola Screening: : Patient denies travel to an Ebola-affected area in the 21 days before illness onset. ROS: 11:37 Constitutional: Negative for fever, chills, and weight loss. pm1 11:37 Neck: Negative for injury, pain, and swelling, Respiratory: Negative for shortness of breath, cough, wheezing, and pleuritic chest pain, Abdomen/GI: Negative for abdominal pain, nausea, vomiting, diarrhea, and constipation, Back: Negative for injury and pain, MS/Extremity: Negative for injury and deformity, Skin: Negative for injury, rash, and discoloration, Neuro: Negative for headache, weakness, numbness, tingling, and seizure. 11:37 Cardiovascular: Positive for chest pain, Negative for edema, palpitations. Exam: 11:37 Constitutional: This is a well developed, well nourished patient who is awake, alert, pm1 and in no acute distress. Head/Face: Normocephalic, atraumatic. Neck: Trachea midline, no thyromegaly or masses palpated, and no cervical lymphadenopathy. Supple, full range of motion without nuchal rigidity, or vertebral point tenderness. No Meningismus. 11:37 Cardiovascular: Regular rate and rhythm with a normal S1 and S2. No gallops, murmurs, or rubs. Normal PMI, no JVD. No pulse deficits. Respiratory: Lungs have equal breath sounds bilaterally, clear to auscultation and percussion. No rales, rhonchi or wheezes noted. No increased work of breathing, no retractions or nasal flaring. Abdomen/GI: Soft, non-tender, with normal bowel sounds. No distension or tympany. No guarding or rebound. No evidence of tenderness throughout. Back: No spinal tenderness. No costovertebral tenderness. Full range of motion. Skin: Warm, dry with normal turgor. Normal color with no rashes, no lesions, and no evidence of cellulitis. MS/ Extremity: Pulses equal, no cyanosis. Neurovascular intact. Full, normal range of motion. 11:37 Chest/axilla: Inspection: normal, Palpation: tenderness, that is mild, of the anterior aspect of left upper chest, that totally reproduces the patient's complaints. 11:37 Neuro: Orientation: is normal, Motor: is normal, moves all fours. Vital Signs: 11:32 BP 126 / 90; Pulse 111; Resp 20; Temp 98.2; Pulse Ox 98% on R/A; Weight 87.54 kg (R); aj1 Height 5 ft. 2 in. (157.48 cm) (R); Pain 0/10; 12:30 BP 126 / 87; Pulse 101; Resp 16 S; Pulse Ox 100% on R/A; jl7 13:30 BP 129 / 89; Pulse 100; Resp 16 S; Pulse Ox 100% on R/A; jl7 11:32 Body Mass Index 35.30 (87.54 kg, 157.48 cm) aj1 MDM: 11:36 Patient medically screened. [facility] 13:36 Data reviewed: vital signs. Data interpreted: Pulse oximetry: on room air is 98 %. pm1 Interpretation: normal. Counseling: I had a detailed discussion with the patient and/or guardian regarding: the historical points, exam findings, and any diagnostic results supporting the discharge/admit diagnosis, lab results, radiology results, the need for outpatient follow up, to return to the emergency department if symptoms worsen or persist or if there are any questions or concerns that arise at home. 11/18 11:38 Order name: Basic Metabolic Panel pm11/18 11:38 Order name: CBC with Diff pm11/18 11:38 Order name: LFT's pm11/18 11:38 Order name: Magnesium pm11/18 11:38 Order name: PT-INR pm11/18 11:38 Order name: Troponin (emerg Dept Use Only) pm11/18 11:38 Order name: D-Dimer pm11/18 12:22 Order name: CBC with Automated Diff; Complete Time: 12:33 EDMS 11/18 12:23 Order name: Protime (+INR); Complete Time: 12:33 EDMS 11/18 12:23 Order name: D-Dimer; Complete Time: 12:33 EDMS 11/18 12:30 Order name: Basic Metabolic Panel; Complete Time: 12:33 EDMS 11/18 12:30 Order name: Liver (Hepatic) Function; Complete Time: 12:33 EDMS 11/18 12:30 Order name: Troponin (Emerg Dept Use Only); Complete Time: 12:33 EDMS 11/18 12:30 Order name: Magnesium; Complete Time: 12:33 EDMS 11/18 11:38 Order name: XRAY Chest (1 view) pm11/18 11:38 Order name: EKG; Complete Time: 11:39 pm11/18 11:38 Order name: Cardiac monitoring; Complete Time: 12:47 pm11/18 11:38 Order name: EKG - Nurse/Tech; Complete Time: 12:31 pm11/18 11:38 Order name: IV Saline Lock; Complete Time: 12:31 pm11/18 11:38 Order name: Labs collected and sent; Complete Time: 12:31 pm1 11/18 11:38 Order name: O2 Per Protocol; Complete Time: 12:31 pm1 11/18 11:38 Order name: O2 Sat Monitoring; Complete Time: 12:31 pm1 11/18 12:25 Order name: RAD; Complete Time: 12:33 EDMS Administered Medications: 12:07 Drug: NS 0.9% 1000 ml Route: IV; Rate: 1000 ml; Site: right antecubital; jl7 13:00 Follow up: Response: No adverse reaction; IV Status: Completed infusion; IV Intake: jl7 1000ml Disposition: 11/19 08:31 Co-signature as Attending Physician, Luis Mckay MD I agree with the assessment and [facility] plan of care. Disposition: 11/18/19 13:42 Discharged to Home. Impression: Chest pain, unspecified. - Condition is Stable. - Discharge Instructions: Nonspecific Chest Pain. - Prescriptions for Naprosyn 500 mg Oral Tablet - take 1 tablet by ORAL route 2 times per day As needed take with food; 30 tablet. Cyclobenzaprine 10 mg Oral Tablet - take 1 tablet by ORAL route every 8 hours As needed; 30 tablet. - Medication Reconciliation Form, Thank You Letter, Antibiotic Education, Prescription Opioid Use form. - Follow up: Emergency Department; When: As needed; Reason: Worsening of condition. Follow up: Private Physician; When: 2 - 3 days; Reason: Recheck today's complaints, Continuance of care, Re-evaluation by your physician. - Problem is new. - Symptoms have improved. Signatures: Dispatcher [employer] EDAmara Galloway RN RN aj1 Luis Mckay MD MD cha Marinas, Patrick, DEAN OF STUDENTS DEAN OF STUDENTS pm1 Leonardo Garcia RN RN jl7 Corrections: (The following items were deleted from the chart) 11/18 12:46 11:33 Urine Dipstick-Ancillary ordered. pm1 jl7 12:46 11:33 Urine Test ordered. pm1 jl7 14:03 13:42 11/18/2019 13:42 Discharged to Home. Impression: Chest pain, unspecified. jl7 Condition is Stable. Forms are Medication Reconciliation Form, Thank You Letter, Antibiotic Education, Prescription Opioid Use. Follow up: Emergency Department; When: As needed; Reason: Worsening of condition. Follow up: Private Physician; When: 2 - 3 days; Reason: Recheck today's complaints, Continuance of care, Re-evaluation by your physician. Problem is new. Symptoms have improved. pm1
--- NOTE | 2019-11-18 13:43 | ER ---
Nurse's Notes [facility] Name: Melia Tavares Age: 39 yrs Sex: Female : 1980 Arrival Date: 11/18/2019 Time: 11:27 Bed 13 Private MD: Diagnosis: Chest pain, unspecified Presentation: 11/18 11:28 Presenting complaint: Patient states: "Yesterday afternoon I started getting a pain aj1 right here (pt points to left side of chest ) so I would massage it, and then it happened again last night and I felt like I was short of breath so I just tried to take a deep breathe and relax myself, but as soon as I got up this morning and started walking around it came back. It feels like a bruise, but theres not bruise there." Denies recent cough. Transition of care: patient was not received from another setting of care. Onset of symptoms was November 2019. Risk Assessment: Do you want to hurt yourself or someone else? Patient reports no desire to harm self or others. Initial Sepsis Screen: Does the patient meet any 2 criteria? Yes Does the patient have a suspected source of infection? No. Patient's initial sepsis screen is negative. Care prior to arrival: None. 11:28 Method Of Arrival: Ambulatory aj1 11:28 Acuity: KATY 3 aj1 Triage Assessment: 11:32 General: Appears in no apparent distress. comfortable, Behavior is calm, cooperative, aj1 appropriate for age. Pain: Complains of pain in anterior aspect of left upper chest. Neuro: Level of Consciousness is awake, alert, obeys commands. Cardiovascular: Patient's skin is warm and dry. Respiratory: Airway is patent Respiratory effort is even, unlabored, Respiratory pattern is regular, symmetrical. 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 - Coronavirus screen:: The patient has NOT traveled to [place] in the past 14 days. - Social history:: Smoking status: Patient reports the use of cigarette tobacco products, denies chronic smoking, but will smoke occasionally. - Ebola Screening: : Patient denies travel to an Ebola-affected area in the 21 days before illness onset. Screenin:20 Abuse screen: Denies threats or abuse. Denies injuries from another. Nutritional jl7 screening: No deficits noted. Tuberculosis screening: No symptoms or risk factors identified. Fall Risk IV access (20 points). Total Calvo Fall Scale indicates No Risk (0-24 pts). Assessment: 11:50 General: Appears in no apparent distress. uncomfortable, Behavior is calm, cooperative, jl7 appropriate for age. Pain: Complains of pain in anterior aspect of left upper chest Pain radiates to left subscapular area Pain currently is 0 out of 10 on a pain scale. at worst was 9 out of 10 on a pain scale. Quality of pain is described as sharp, Pain began 1 day ago. Is intermittent. Neuro: Level of Consciousness is awake, alert, obeys commands, Oriented to person, place, time, situation. Cardiovascular: Patient's skin is warm and dry. Respiratory: Airway is patent Respiratory effort is even, unlabored, Respiratory pattern is regular, symmetrical. Derm: Skin is pink, warm \\T\\ dry. 12:30 Reassessment: Pt denies possibility of , denies urinary symptoms, ERP notified jl7 and UPT and dip cancelled. 13:30 Reassessment: Patient appears in no apparent distress at this time. No changes from jl7 previously documented assessment. Patient and/or family updated on plan of care and expected duration. Pain level reassessed. Patient is alert, oriented x 3, equal unlabored respirations, skin warm/dry/pink. Vital Signs: 11:32 BP 126 / 90; Pulse 111; Resp 20; Temp 98.2; Pulse Ox 98% on R/A; Weight 87.54 kg (R); aj1 Height 5 ft. 2 in. (157.48 cm) (R); Pain 0/10; 12:30 BP 126 / 87; Pulse 101; Resp 16 S; Pulse Ox 100% on R/A; jl7 13:30 BP 129 / 89; Pulse 100; Resp 16 S; Pulse Ox 100% on R/A; jl7 11:32 Body Mass Index 35.30 (87.54 kg, 157.48 cm) aj1 ED Course: 11:27 Patient arrived in ED. mr 11:31 Halie Cameron, BLACK JACK DEALER is PHCP. pm1 11:31 Luis Mckay MD is Attending Physician. pm1 11:32 Triage completed. aj1 11:32 Arm band placed on. aj1 11:37 Leonardo Garcia RN is Primary Nurse. jl7 11:45 EKG done, by ED staff, reviewed by Cameron Ambrose NP. jb1 12:00 Initial lab(s) drawn, by ks, sent to lab. Inserted saline lock: 20 gauge in right jl7 antecubital area, using aseptic technique. Blood collected. 12:20 Patient has correct armband on for positive identification. Placed in gown. Bed in low jl7 position. Call light in reach. Side rails up X 1. threat monitoring analyst on. Pulse ox on. NIBP on. 14:02 No provider procedures requiring assistance completed. IV discontinued, intact, jl7 bleeding controlled, No redness/swelling at site. Pressure dressing applied. Administered Medications: 12:07 Drug: NS 0.9% 1000 ml Route: IV; Rate: 1000 ml; Site: right antecubital; jl7 13:00 Follow up: Response: No adverse reaction; IV Status: Completed infusion; IV Intake: jl7 1000ml Intake: 13:00 IV: 1000ml; Total: 1000ml. jl7 Outcome: 13:42 Discharge ordered by . pm1 14:02 Discharged to home ambulatory. jl7 14:02 Condition: stable 14:02 Discharge instructions given to patient, Instructed on discharge instructions, follow up and referral plans. Demonstrated understanding of instructions, follow-up care. 14:03 Patient left the ED. jl7 Signatures: Christian Mcnamara jb1 Amara Schuler, RN RN aj1 Stubbs Desire mr CelinashantelCameron, BLACK JACK DEALER BLACK JACK DEALER pm1 Leonardo Garcia, JEANNE RN jl7
[2019-11-18 14:16] VITALS: TEMP 98.2
[2019-11-18 14:17] VITALS: O2SAT 100
[2019-11-18 14:19] VITALS: BP 129/89
--- NOTE | 2019-11-19 08:11 | EKG ---
Test Date: 2019-11-18 Test Time: 11:47:07 Senior [employer] Dba: BRITTANY MEASUREMENT RESULTS: Intervals: Rate: 114 AR: 136 QRSD: 84 QT: 324 QTc: 446 [place]: P: 28 AR: 136 QRS: -15 T: 66 INTERPRETIVE STATEMENTS: Sinus tachycardia Possible Inferior infarct, age undetermined Anterior infarct, age undetermined Abnormal ECG Compared to ECG 02/20/2019 20:49:36 Sinus rhythm no longer present Myocardial infarct finding still present Electronically Signed On 11-19-19 08:09:47 CHARGE HISTOTECHNOLOGIST by Rhys Davila
== END 2019-11-18 14:03 | disposition home or self-care (01) ==
LOC: ER 11:25
DX: R07.9 Chest pain, unspecified (principal); E11.9 Type 2 diabetes mellitus without complications; F17.210 Nicotine dependence, cigarettes, uncomplicated
CPT/HCPCS: 36415; 71045; 80048; 80076; 83735; 84484; 85025; 85379; 85610; 93005; 96360; 99284; J7030

== ENCOUNTER 2020-08-22 08:25 | Emergency (ER) | payer SELFPAY ==
[2020-08-22] MEDS ORDERED: TETANUS & DIPHTHERIA TOX,ADULT 0.5 ML VIAL ONE (09:01)
--- NOTE | 2020-08-22 09:03 | RAD REPORT ---
EXAM DESCRIPTION: RAD - Hand Right 3 View - 08/22/2020 8:55 am CLINICAL HISTORY: right thumb injury Pain and swelling COMPARISON: No comparisons FINDINGS: No acute fracture or dislocation is seen.
--- NOTE | 2020-08-22 09:13 | EDPHYS ---
Physician Documentation [facility] Name: Melia Tavares Age: 40 yrs Sex: Female : 1980 Arrival Date: 08/22/2020 Time: 08:28 Bed 8 Private MD: ED Physician Raymundo Guzman HPI: 08/22 08:42 This 40 yrs old Female presents to ER via Ambulatory with complaints of Hand rn Injury. 08:42 The patient or guardian reports injury, pain. The complaints affect the IP of right rn thumb and MCP of right thumb. Context: The problem was sustained at home, resulted from a direct blow. Onset: The symptoms/episode began/occurred just prior to arrival. Modifying factors: The symptoms are alleviated by holding still, the symptoms are aggravated by movement. Associated signs and symptoms: Pertinent negatives: cyanosis distally, decreased sensation distally, fever, nausea, numbness distally, tingling distally, vomiting. Severity of symptoms: At their worst the symptoms were mild, in the emergency department the symptoms are unchanged. The patient has not experienced similar symptoms in the past. The patient has not recently seen a physician. 08:43 Reports moving futon, pinched her right thumb, + small bleeding wound, hurts to move rn right thumb. . Historical: - Allergies: 08:41 No Known Allergies; ss - Home Meds: 08:41 None [Active]; ss - PMHx: 08:41 Asthma; Diabetes - NIDDM; ss - PSHx: 08:41 Tubal ligation; ss - Immunization history:: Adult Immunizations up to date. - Social history:: Smoking status: Patient denies any tobacco usage or history of. - Family history:: not pertinent. - Hospitalizations: : No recent hospitalization is reported. ROS: 08:43 Constitutional: Negative for fever, chills, and weight loss, MS/Extremity: + right rn thumb injury and pain Skin: + wound to right thumb Exam: 08:43 Constitutional: This is a well developed, well nourished patient who is awake, alert, rn and in no acute distress. MS/ Extremity: Pulses equal, no cyanosis. Neurovascular intact. + right thumb on volar surface near IP joint with blood blister and avulsion wound approx 1cm diameter, irregular. + tenderness along entire right thumb. Vital Signs: 08:37 BP 126 / 82; Pulse 89; Resp 16; Temp 97.1(TE); Pulse Ox 100% on R/A; Weight 61.23 kg; ss Height 5 ft. 1 in. (154.94 cm); Pain 10; 08:37 Body Mass Index 25.51 (61.23 kg, 154.94 cm) ss MDM: 08:29 Patient medically screened. rn 09:10 Differential diagnosis: closed fracture, contusion, abrasion, avulsion. Data reviewed: rn vital signs, nurses notes, radiologic studies, plain films, and as a result, I will discharge patient. Counseling: I had a detailed discussion with the patient and/or guardian regarding: the historical points, exam findings, and any diagnostic results supporting the discharge/admit diagnosis, radiology results, the need for outpatient follow up, to return to the emergency department if symptoms worsen or persist or if there are any questions or concerns that arise at home. Special discussion: I discussed with the patient/guardian in detail that at this point there is no indication for admission to the hospital. It is understood, however, that if the symptoms persist or worsen the patient needs to return immediately for re-evaluation. ED course: Xray hand neg for fracture, unable to suture wound due to loss of skin and avulsion, patient understands, will heal by secondary intention. . 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 Exp: em 12/14/2021. Lot #: [id number]. } Route: IM; Site: right deltoid; 09:14 Follow up: Response: No adverse reaction em Disposition: 08/22/20 09:12 Discharged to Home. Impression: Contusion of right hand. - Condition is Stable. - Discharge Instructions: Hand Contusion. - Medication Reconciliation Form, Thank You Letter, Antibiotic Education, Prescription Opioid Use form. - Follow up: Private Physician; When: As needed; Reason: Recheck today's complaints, Re-evaluation by your physician. - Problem is new. - Symptoms have improved. Signatures: Dispatcher [employer] Srini Eaton, Raymundo Hussein RN, MD MD rn Smirch, Shelby, RN RN ss Corrections: (The following items were deleted from the chart) : 09:12 08/22/2020 09:12 Discharged to Home. Impression: Contusion of right hand. em Condition is Stable. Forms are Medication Reconciliation Form, Thank You Letter, Antibiotic Education, Prescription Opioid Use. Follow up: Private Physician; When: As needed; Reason: Recheck today's complaints, Re-evaluation by your physician. Problem is new. Symptoms have improved. rn
--- NOTE | 2020-08-22 09:13 | ER ---
Nurse's Notes [facility] Name: Melia Tavares Age: 40 yrs Sex: Female : 1980 Arrival Date: 08/22/2020 Time: 08:28 Bed 8 Private MD: Diagnosis: Contusion of right hand Presentation: 08/22 08:37 Chief complaint: Patient states: R thumb pain that began after a heavy futon folded ss onto hand approximately 30-45 minutes ago. Coronavirus screen: Client denies travel out of the [place] in the last 14 days. Ebola Screen: Patient denies exposure to infectious person. Patient denies travel to an Ebola-affected area in the 21 days before illness onset. Initial Sepsis Screen: Does the patient meet any 2 criteria? No. Patient's initial sepsis screen is negative. Does the patient have a suspected source of infection? No. Patient's initial sepsis screen is negative. Risk Assessment: Do you want to hurt yourself or someone else? Patient reports no desire to harm self or others. Onset of symptoms was August 22, 2020. 08:37 Method Of Arrival: Ambulatory ss 08:37 Acuity: KATY 4 ss Historical: - Allergies: 08:41 No Known Allergies; ss - Home Meds: 08:41 None [Active]; ss - PMHx: 08:41 Asthma; Diabetes - NIDDM; ss - PSHx: 08:41 Tubal ligation; ss - Immunization history:: Adult Immunizations up to date. - Social history:: Smoking status: Patient denies any tobacco usage or history of. - Family history:: not pertinent. - Hospitalizations: : No recent hospitalization is reported. Screenin:41 Abuse screen: Denies threats or abuse. Nutritional screening: No deficits noted. em Tuberculosis screening: No symptoms or risk factors identified. Fall Risk None identified. Assessment: 08:41 General: Appears in no apparent distress. comfortable, Behavior is calm, cooperative, em appropriate for age. Pain: Complains of pain in dorsal aspect of proximal phalanx of right thumb Pain currently is 10 out of 10 on a pain scale. Neuro: Level of Consciousness is awake, alert, obeys commands, Oriented to person, place, time, situation, Appropriate for age. Cardiovascular: Capillary refill < 3 seconds Patient's skin is warm and dry. Respiratory: Airway is patent Respiratory effort is even, unlabored, Respiratory pattern is regular, symmetrical. Derm: Skin is intact, is healthy with good turgor, Skin is pink, warm \T\ dry. Musculoskeletal: Range of motion: limited in MCP of right thumb. Vital Signs: 08:37 BP 126 / 82; Pulse 89; Resp 16; Temp 97.1(TE); Pulse Ox 100% on R/A; Weight 61.23 kg; ss Height 5 ft. 1 in. (154.94 cm); Pain 10/10; 08:37 Body Mass Index 25.51 (61.23 kg, 154.94 cm) ED Course: 08:28 Patient arrived in ED. ds1 08:29 Raymundo Guzman MD is Attending Physician. rn 08:31 Srini Fuller RN is Primary Nurse. em 08:40 Triage completed. ss 08:41 Arm band placed on right wrist. ss 08:41 Patient has correct armband on for positive identification. Bed in low position. Call em light in reach. Side rails up X2. 08:56 XRAY Hand RIGHT 3 View In Process Unspecified. EDMS 09:15 No provider procedures requiring assistance completed. Patient did not have IV access em during this emergency room visit. Wound care: to located on dorsal aspect of proximal phalanx of right thumb was cleaned with Hibiclens, Patient tolerated well. 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 Exp: em 12/14/2021. Lot #: [id number]. } Route: IM; Site: right deltoid; 09:14 Follow up: Response: No adverse reaction em Outcome: 09:12 Discharge ordered by . rn 09:19 Discharged to home ambulatory. em 09:19 Condition: stable 09:19 Discharge instructions given to patient, Instructed on discharge instructions, follow up and referral plans. Demonstrated understanding of instructions, follow-up care. 09:19 Patient left the ED. em Signatures: Dispatcher [employer] EDMS Srini Fuller, RN RN Waleska Yin ds1 Raymundo Guzman MD MD rn Smirch, Shelby, RN RN
[2020-08-22 21:58] VITALS: BP 126/82; TEMP 97.1; O2SAT 100
== END 2020-08-22 09:19 | disposition home or self-care (01) ==
LOC: ER 08:25
DX: S60.221A Contusion of right hand, initial encounter (principal); W22.8XXA Striking against or struck by other objects, initial encounter; Y93.89 Activity, other specified; Y92.009 Unspecified place in unspecified non-institutional (private) residence as the place of occurrence of the external cause; Z23 Encounter for immunization
CPT/HCPCS: 90471; 90714; 99283

== ENCOUNTER 2021-01-20 16:19 | Emergency (ER) | payer SELFPAY ==
--- NOTE | 2021-01-20 17:48 | RAD REPORT ---
EXAM DESCRIPTION: RAD - Chest Single View - 01/20/2021 5:14 pm CLINICAL HISTORY: CHEST PAIN Chest pain. COMPARISON: Chest Single View dated 11/18/2019; Chest Single View dated 02/20/2019; CHEST PA AND LAT 2 VIEW dated 05/26/2010 FINDINGS: Portable technique limits examination quality. The lungs are grossly clear. The heart is normal in size. No displaced fractures. IMPRESSION: No acute intrathoracic process suspected.
[2021-01-20] MEDS ORDERED: MORPHINE 4 MG/ML SYR ONE (17:56)
[2021-01-20] MEDS ORDERED: ONDANSETRON 4 MG/2 ML VIAL ONE (17:56)
[2021-01-20] MEDS ORDERED: ALBUTEROL 2.5 MG/3 ML NEB SOL ONE (18:08)
[2021-01-20] MEDS ORDERED: dexAMETHasone 10 MG/ML VIAL ONE ×2 (18:08→18:16)
[2021-01-20] MEDS ORDERED: IPRATROPIUM BROM 0.5MG/2.5ML ONE (18:08)
[2021-01-20 18:23] LABS: Absolute Lymphocytes (CBC) 3.1 K/uL (0.7-4.9); Basophils % 0.3 % (0-1.3); Hematocrit 40.8 % (36.0-45.0); Lymphocytes % 26.5 % (15.3-44.8); MPV 10.1 fL (7.6-11.3); RBC Red Blood Cell Count 4.45 M/uL (3.86-4.86)
[2021-01-20 18:33] LABS: Protime INR 1.09
[2021-01-20 18:41] LABS: Arterial Blood Carboxyhemoglob 0.9 % (0-1.5); Blood Gas Oxyhemoglobin 93.2 % (94-97); Blood O2 Saturation 95.1 % (92-98.5)
[2021-01-20 18:46] LABS: ALT/SGPT 24 U/L (12-78); AST/SGOT 13 U/L (15-37); Albumin 4.1 g/dL (3.4-5.0); Alkaline Phosphatase 51 U/L (45-117); BUN Blood Urea Nitrogen 16 mg/dL (7-18); Bicarbonate 28 mmol/L (21-32); Bilirubin Direct < 0.1 mg/dL (0-0.2); Bilirubin Total 0.4 mg/dL (0.2-1.0); Glucose Level 98 mg/dL (74-106); Magnesium 2.3 mg/dL (1.8-2.4); NT PRO-BNP 13 pg/mL (<125); Potassium 3.4 mmol/L (3.5-5.1); Protein, Total 7.8 g/dL (6.4-8.2); Sodium Level 140 mmol/L (136-145); Troponin (Emerg Dept Use Only) < 0.02 ng/mL (0.0-0.045)
--- NOTE | 2021-01-20 19:31 | EDPHYS ---
Physician Documentation [facility] Name: Melia Tavares Age: 40 yrs Sex: Female : 1980 Arrival Date: 01/20/2021 Time: 16:20 Bed 4 Private MD: ED Physician Raymundo Guzman HPI: 01/20 16:37 This 40 yrs old Female presents to ER via Ambulatory with complaints of Chest jmm Pain. 16:37 The patient or guardian reports chest pain that is located primarily in the substernal [facility] area. Onset: acutely, just prior to arrival. The pain does not radiate. Associated signs and symptoms: Pertinent negatives: lower extremity pain, lower extremity swelling, shortness of breath. The chest pain is described as a pressure. This is a 40 year old female with a history of asthma, DM that presents to the ED with complaints of right sided chest pain which developed after inhaling chemical fumes. Patient states the pain as pressure and deep in her chest. . 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 - Social history:: Smoking status: Patient denies any tobacco usage or history of. ROS: 16:37 Constitutional: Negative for fever, chills, and weight loss. jmm 16:37 Cardiovascular: Positive for chest pain. 16:37 Respiratory: Positive for shortness of breath. 16:37 All other systems are negative. Exam: 16:37 Constitutional: This is a well developed, well nourished patient who is awake, alert, jmm and in no acute distress. Head/Face: atraumatic. Eyes: EOMI, no conjunctival erythema appreciated ENT: Moist Mucus Membranes Neck: Trachea midline, Supple Chest/axilla: Normal chest wall appearance and motion. Cardiovascular: Regular rate and rhythm. No edema appreciated Respiratory: Normal respirations, no respiratory distress appreciated Abdomen/GI: Non distended, soft Back: Normal ROM Skin: General appearance color normal MS/ Extremity: Moves all extremities, no obvious deformities appreciated, no edema noted to the lower extremities Neuro: Awake and alert, normal gait Psych: Behavior is normal, Mood is normal, Patient is cooperative and pleasant Vital Signs: 16:23 BP 146 / 84; Pulse 87; Resp 16; Temp 98.1; Pulse Ox 100% on R/A; Weight 83.91 kg; iw Height 5 ft. 2 in. (157.48 cm); Pain 10/10; 17:32 BP 127 / 81; Pulse 77; Resp 18; Temp 98.6(O); Pulse Ox 100% on R/A; Weight 81.65 kg; ld1 Height 5 ft. 2 in. (157.48 cm); Pain 10/10; 18:56 BP 129 / 73; Pulse 93; Resp 18; Pulse Ox 100% on R/A; Pain 0/10; ld1 19:45 BP 129 / 85; Pulse 86; Resp 18; Pulse Ox 99% ; wh 17:32 Body Mass Index 32.92 (81.65 kg, 157.48 cm) ld1 MDM: 17:38 Patient medically screened. [facility] 19:29 Data reviewed: vital signs, nurses notes. Counseling: I had a detailed discussion with chris the patient and/or guardian regarding: the historical points, exam findings, and any diagnostic results supporting the discharge/admit diagnosis, lab results, radiology results, the need for outpatient follow up, to return to the emergency department if symptoms worsen or persist or if there are any questions or concerns that arise at home. ED course: Patient states feeling much better. Most likely chemical pneumonitis. Patient given strict return precautions. patient understood and agrees with the plan of care. . 01/20 17:42 Order name: ABG; Complete Time: 18:44 [facility] 01/20 17:48 Order name: Basic Metabolic Panel; Complete Time: 19:16 [facility] 01/20 17:48 Order name: CBC with Diff; Complete Time: 18:31 [facility] 01/20 17:48 Order name: LFT's; Complete Time: 19:16 [facility] 01/20 17:48 Order name: Magnesium; Complete Time: 19:16 [facility] 01/20 17:48 Order name: NT PRO-BNP; Complete Time: 19:16 [facility] 01/20 16:37 Order name: CXR XRAY; Complete Time: 17:49 01/20 17:48 Order name: PT-INR; Complete Time: 18:44 [facility] 01/20 17:48 Order name: Troponin (emerg Dept Use Only); Complete Time: 19:16 [facility] 01/20 17:48 Order name: D-Dimer; Complete Time: 18:44 [facility] 01/20 17:42 Order name: EKG - Nurse/Tech; Complete Time: 17:43 [facility] 01/20 17:48 Order name: EKG; Complete Time: 17:49 [facility] 01/20 17:48 Order name: Cardiac monitoring; Complete Time: 18:08 [facility] 01/20 17:48 Order name: IV Saline Lock; Complete Time: 18:08 [facility] 01/20 17:48 Order name: Labs collected and sent; Complete Time: 18:08 [facility] 01/20 17:48 Order name: O2 Per Protocol; Complete Time: 18:08 [facility] 01/20 17:48 Order name: O2 Sat Monitoring; Complete Time: 18:08 jm Administered Medications: 17:44 Drug: morphine 4 mg Route: IVP; Site: left antecubital; ld1 18:30 Follow up: Response: No adverse reaction ld1 17:45 Drug: Zofran (Ondansetron) 4 mg Route: IVP; Site: left antecubital; ld1 18:15 Follow up: Response: No adverse reaction ld1 18:08 Drug: DuoNeb (albuterol 2.5 mg, ipratropium 0.5 mg) (3:1) (2.5 mg - 0.5 mg) 3 ml Route: ld1 Nebulizer; 18:31 Follow up: Response: No adverse reaction ld1 18:09 Drug: Decadron - Dexamethasone 10 mg Route: IVP; Site: left antecubital; ld1 18:31 Follow up: Response: No adverse reaction ld1 Disposition: 01/21 08:27 Co-signature as Attending Physician, Raymundo Guzman MD. rn Disposition: 01/20/21 19:31 Discharged to Home. Impression: Respiratory conditions due to inhalation of chemicals, gases, fumes and vapors. - Condition is Stable. - Discharge Instructions: Chemical Inhalation Injury, Adult. - Prescriptions for Medrol (Mynor) 4 mg Oral Tablets, Dose Pack - take 1 tablet by ORAL route as directed - follow package instructions; 1 packet. Albuterol Sulfate 90 mcg/actuation - inhale 1-2 puff by INHALATION route every 4-6 hours; 1 Inhaler. - Medication Reconciliation Form, Thank You Letter, Antibiotic Education, Prescription Opioid Use form. - Follow up: Private Physician; When: 2 - 3 days; Reason: Recheck today's complaints, Continuance of care, Re-evaluation by your physician. Signatures: Dispatcher [employer] EDMS Zackery Whalen PA PA jmm Williams, Irene, RN RN Raymundo Guzman MD MD rn Habalo, Winsy, RN RN Sandy Leiva RN RN ld1 Corrections: (The following items were deleted from the chart) 01/20 19:57 19:31 01/20/2021 19:31 Discharged to Home. Impression: Respiratory conditions due to wh inhalation of chemicals, gases, fumes and vapors. Condition is Stable. Forms are Medication Reconciliation Form, Thank You Letter, Antibiotic Education, Prescription Opioid Use. Follow up: Private Physician; When: 2 - 3 days; Reason: Recheck today's complaints, Continuance of care, Re-evaluation by your physician. chris
--- NOTE | 2021-01-20 19:31 | ER ---
Nurse's Notes [facility] Name: Melia Tavares Age: 40 yrs Sex: Female : 1980 Arrival Date: 01/20/2021 Time: 16:20 Bed 4 Private MD: Diagnosis: Respiratory conditions due to inhalation of chemicals, gases, fumes and vapors Presentation: 01/20 16:23 Chief complaint: Patient states: earlier I was cleaning and then her chest started iw hurting , feels like when she runs and feels cold inside, feels it on her right side, and across her back , was feeling SOB , not sure if it was the cleaning stuff she was using , was using [employer]. Coronavirus screen: At this time, the client does not indicate any symptoms associated with coronavirus-19. Ebola Screen: Patient negative for fever greater than or equal to 101.5 degrees Fahrenheit, and additional compatible Ebola Virus Disease symptoms Patient denies exposure to infectious person. Patient denies travel to an Ebola-affected area in the 21 days before illness onset. No symptoms or risks identified at this time. Initial Sepsis Screen: Does the patient meet any 2 criteria? No. Patient's initial sepsis screen is negative. Does the patient have a suspected source of infection? No. Patient's initial sepsis screen is negative. Risk Assessment: Do you want to hurt yourself or someone else? Patient reports no desire to harm self or others. Onset of symptoms was January 20, 2021. 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 - Social history:: Smoking status: Patient denies any tobacco usage or history of. Screenin:32 Abuse screen: Denies threats or abuse. Denies injuries from another. Nutritional ld1 screening: No deficits noted. Tuberculosis screening: No symptoms or risk factors identified. Fall Risk IV access (20 points). Assessment: 17:32 General: Appears in no apparent distress. comfortable, Behavior is calm, cooperative, ld1 appropriate for age. Pain: Complains of pain in chest Pain does not radiate. Pain currently is 10 out of 10 on a pain scale. Quality of pain is described as burning, Pt states the chest pain feels like cool air inside chest. Pain began 2 hours ago. Is continuous. Neuro: Level of Consciousness is awake, alert, obeys commands, Oriented to person, place, time, situation. Cardiovascular: Capillary refill < 3 seconds Patient's skin is warm and dry. Rhythm is regular. Respiratory: Airway is patent Respiratory effort is even, unlabored, Respiratory pattern is regular, symmetrical. GI: Abdomen is round non-distended, Bowel sounds present X 4 quads. : No deficits noted. EENT: No deficits noted. Derm: No deficits noted. 18:56 Reassessment: Patient and/or family updated on plan of care and expected duration. Pain ld1 level reassessed. Patient is alert, oriented x 3, equal unlabored respirations, skin warm/dry/pink. Patient denies pain at this time. Patient states feeling better. 19:15 Reassessment: Patient appears in no apparent distress at this time. Patient and/or wh family updated on plan of care and expected duration. Pain level reassessed. Patient is alert, oriented x 3, equal unlabored respirations, skin warm/dry/pink. Vital Signs: 16:23 BP 146 / 84; Pulse 87; Resp 16; Temp 98.1; Pulse Ox 100% on R/A; Weight 83.91 kg; iw Height 5 ft. 2 in. (157.48 cm); Pain 10/10; 17:32 BP 127 / 81; Pulse 77; Resp 18; Temp 98.6(O); Pulse Ox 100% on R/A; Weight 81.65 kg; ld1 Height 5 ft. 2 in. (157.48 cm); Pain 10/10; 18:56 BP 129 / 73; Pulse 93; Resp 18; Pulse Ox 100% on R/A; Pain 0/10; ld1 19:45 BP 129 / 85; Pulse 86; Resp 18; Pulse Ox 99% ; wh 17:32 Body Mass Index 32.92 (81.65 kg, 157.48 cm) ld1 ED Course: 16:20 Patient arrived in ED. as 16:26 Triage completed. iw 16:26 Arm band placed on. iw 17:08 Sandy Leiva, JEANNE is Primary Nurse. ld1 17:13 Zackery Whalen PA is PHCP. chris 17:13 Raymundo Guzman MD is Attending Physician. chris 17:14 CXR XRAY In Process Unspecified. EDMS 17:32 Patient has correct armband on for positive identification. Placed in gown. Bed in low ld1 position. Call light in reach. Side rails up X2. media monitor on. Pulse ox on. NIBP on. Door closed. Noise minimized. Warm blanket given. 17:32 No provider procedures requiring assistance completed. Inserted saline lock: 22 gauge ld1 in left antecubital area, using aseptic technique. Blood collected. Patient maintains SpO2 saturation greater than 95% on room air. 19:56 IV discontinued, intact, bleeding controlled, No redness/swelling at site. wh Administered Medications: 17:44 Drug: morphine 4 mg Route: IVP; Site: left antecubital; ld1 18:30 Follow up: Response: No adverse reaction ld1 17:45 Drug: Zofran (Ondansetron) 4 mg Route: IVP; Site: left antecubital; ld1 18:15 Follow up: Response: No adverse reaction ld1 18:08 Drug: DuoNeb (albuterol 2.5 mg, ipratropium 0.5 mg) (3:1) (2.5 mg - 0.5 mg) 3 ml Route: ld1 Nebulizer; 18:31 Follow up: Response: No adverse reaction ld1 18:09 Drug: Decadron - Dexamethasone 10 mg Route: IVP; Site: left antecubital; ld1 18:31 Follow up: Response: No adverse reaction ld1 Outcome: 19:31 Discharge ordered by . chris 19:55 Discharged to home ambulatory, with family. 19:55 Condition: stable 19:55 Discharge instructions given to patient, family, Instructed on discharge instructions, follow up and referral plans. medication usage, POC Demonstrated understanding of instructions, follow-up care, medications, POC Prescriptions given X 2. 19:57 Patient left the ED. Signatures: Dispatcher [employer] EDMS Zackery Whalen PA PA jmm Martinez, Amelia as Williams, Irene, RN RN iw Rudolph Yusuf, RN RN wh Sandy Leiva, RN RN ld1
[2021-01-20 20:14] VITALS: TEMP 98.6
[2021-01-20 20:21] VITALS: BP 129/85; O2SAT 99
--- NOTE | 2021-01-21 16:11 | EKG ---
Test Date: 2021-01-20 Test Time: 16:33:53 [place]shore Diver: YOBANI MEASUREMENT RESULTS: Intervals: Rate: 73 MO: 142 QRSD: 78 QT: 384 QTc: 423 [place]: P: 68 MO: 142 QRS: -1 T: 39 INTERPRETIVE STATEMENTS: Normal sinus rhythm with sinus arrhythmia Cannot rule out Anterior infarct, age undetermined Abnormal ECG Compared to ECG 11/18/2019 11:47:07 Sinus tachycardia no longer present Myocardial infarct finding still present Electronically Signed On 01-21-21 16:07:10 CDT by Faustino Hatfield
== END 2021-01-20 19:57 | disposition home or self-care (01) ==
LOC: ER 16:19
DX: T65.91XA Toxic effect of unspecified substance, accidental (unintentional), initial encounter (principal); J45.909 Unspecified asthma, uncomplicated; E11.9 Type 2 diabetes mellitus without complications
CPT/HCPCS: 36415; 71045; 80048; 80076; 82805; 83735; 83880; 84484; 85025; 85379; 85610; 93005; 96374; 96375; 99285; J1100; J2405

== ENCOUNTER 2021-03-31 21:46 | Emergency (ER) | payer SELFPAY ==
[2021-03-31 22:49] LABS: Urine Blood Trace-intact (Negative); Urine Glucose Negative (Negative); Urine Protein Negative (Negative); Urine Specific Gravity 1.015 (1.005-1.030)
[2021-03-31] MEDS ORDERED: METOCLOPRAMIDE 10 MG/2mL INJ ONE (23:00)
[2021-03-31] MEDS ORDERED: KETOROLAC 30 MG/ML INJ ONE (23:01)
[2021-03-31] MEDS ORDERED: ONDANSETRON 4 MG/2 ML VIAL ONE (23:01)
[2021-03-31] MEDS ORDERED: NA CHLORIDE 0.9% 1,000 ML ONE (23:01)
[2021-03-31 23:20] LABS: Urine Specific Gravity/Preg 1.015 (1.005-1.030)
[2021-03-31 23:23] LABS: Absolute Lymphocytes (CBC) 4.8 K/uL (0.7-4.9); Basophils % 0.7 % (0-1.3); Hematocrit 37.9 % (36.0-45.0); Lymphocytes % 39.7 % (15.3-44.8); MPV 10.4 fL (7.6-11.3); RBC Red Blood Cell Count 4.18 M/uL (3.86-4.86)
[2021-03-31 23:39] LABS: ALT/SGPT 35 U/L (12-78); AST/SGOT 18 U/L (15-37); Albumin 3.9 g/dL (3.4-5.0); Alkaline Phosphatase 78 U/L (45-117); BUN Blood Urea Nitrogen 12 mg/dL (7-18); Bicarbonate 29 mmol/L (21-32); Bilirubin Total 0.2 mg/dL (0.2-1.0); Glucose Level 108 mg/dL (74-106); Potassium 3.6 mmol/L (3.5-5.1); Protein, Total 7.4 g/dL (6.4-8.2); Sodium Level 141 mmol/L (136-145)
--- NOTE | 2021-04-01 00:18 | ER ---
Nurse's Notes [facility] Name: Melia Tavares Age: 40 yrs Sex: Female : 1980 Arrival Date: 03/31/2021 Time: 21:50 Bed 7 Private MD: Diagnosis: Tension-type headache Presentation: 03/31 22:21 Chief complaint: Patient states: Reports she started having pain to left side of head, ea reports pain feels like pressure. Coronavirus screen: At this time, the client does not indicate any symptoms associated with coronavirus-19. Ebola Screen: No symptoms or risks identified at this time. Initial Sepsis Screen: Does the patient meet any 2 criteria? No. Patient's initial sepsis screen is negative. Does the patient have a suspected source of infection? No. Patient's initial sepsis screen is negative. Risk Assessment: Do you want to hurt yourself or someone else? Patient reports no desire to harm self or others. Onset of symptoms was March 31, 2021. 22:21 Method Of Arrival: Ambulatory ea 22:21 Acuity: KATY 3 ea Triage Assessment: 22:23 Headache History: Denies prior headaches. General: Appears uncomfortable, Behavior is ea appropriate for age. Pain: Complains of pain in left side of head. 22:57 Pain: Also complains of no other associated symptoms. 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 - Social history:: Smoking status: unknown. - Family history:: not pertinent. Screenin:23 Abuse screen: Denies threats or abuse. Nutritional screening: No deficits noted. ea Tuberculosis screening: No symptoms or risk factors identified. Fall Risk None identified. Assessment: 22:34 General: Appears in no apparent distress. uncomfortable, Behavior is calm, cooperative. bb Pain: Complains of pain in left side of head Pain currently is 10 out of 10 on a pain scale. Pain began suddenly. Neuro: Level of Consciousness is awake, alert, obeys commands, Oriented to person, place, time, situation. Cardiovascular: Capillary refill < 3 seconds Patient's skin is warm and dry. Respiratory: Airway is patent Respiratory effort is even, unlabored. GI: No signs and/or symptoms were reported involving the gastrointestinal system. Derm: Skin is pink, warm \T\ dry. Musculoskeletal: Circulation, motion, and sensation intact. 23:24 Reassessment: Patient and/or family updated on plan of care and expected duration. Pain bb level reassessed. Patient is alert, oriented x 3, equal unlabored respirations, skin warm/dry/pink. pt states her pain is gone now Patient states feeling better. 04/01 00:33 Reassessment: Patient and/or family updated on plan of care and expected duration. Pain bb level reassessed. Patient is alert, oriented x 3, equal unlabored respirations, skin warm/dry/pink. pt verbalized understanding of and agrees to plan of care discharge instructions given pt ambulated with steady gait to exit accompanied by spouse Patient states feeling better. Vital Signs: 03/31 22:21 BP 129 / 80; Pulse 69; Resp 18; Temp 97.9; Pulse Ox 98% ; Weight 81.65 kg; Height 5 ft. ea 7 in. (170.18 cm); 23:25 BP 121 / 79; Pulse 77; Resp 16 S; Pulse Ox 98% on R/A; Pain 0/10; bb 04/01 00:24 BP 118 / 69; Pulse 69; Resp 14 S; Pulse Ox 98% on R/A; bb 00:34 Temp 97.5(TE); Pain 0/10; bb 03/31 22:21 Body Mass Index 28.19 (81.65 kg, 170.18 cm) ea ED Course: 03/31 21:50 Patient arrived in ED. es 22:20 Renetta Valera MD is Attending Physician. ma2 22:23 Triage completed. ea 22:23 Patient has correct armband on for positive identification. Bed in low position. Call ea light in reach. Side rails up X2. 22:23 Arm band placed on right wrist. Patient placed in an exam room, on a stretcher, on ea pulse oximetry. 22:45 Initial lab(s) drawn, by me, sent to lab. Inserted saline lock: 20 gauge in right bb forearm, using aseptic technique. Blood collected. 22:48 Urine collected: clean catch specimen, clear. em 22:58 CT Head Brain wo Cont In Process Unspecified. EDMS 23:24 Staci Claros, RN is Primary Nurse. bb 04/01 00:33 No provider procedures requiring assistance completed. IV discontinued, intact, bb bleeding controlled, No redness/swelling at site. Pressure dressing applied. Administered Medications: 03/31 22:46 Drug: NS 0.9% 1000 ml Route: IV; Rate: 1 bolus; Site: right forearm; bb 04/01 00:25 Follow up: IV Status: Completed infusion; IV Intake: 1000ml bb 03/31 22:46 Drug: Zofran (Ondansetron) 4 mg Route: IVP; Site: right forearm; bb 23:25 Follow up: Response: No adverse reaction bb 22:46 Drug: TORadol (ketorolac) 30 mg Route: IVP; Site: right forearm; bb 23:25 Follow up: Response: No adverse reaction bb 22:48 Drug: Reglan (metoCLOPramide) 20 mg Route: IVP; Site: right forearm; bb 23:25 Follow up: Response: No adverse reaction bb Intake: 04/01 00:25 IV: 1000ml; Total: 1000ml. bb Outcome: 00:18 Discharge ordered by . ma2 00:35 Discharged to home ambulatory, with family. bb 00:35 Condition: stable 00:35 Discharge instructions given to patient, Instructed on discharge instructions, follow up and referral plans. medication usage, Demonstrated understanding of instructions, follow-up care, medications, Prescriptions given X 2. 00:35 Patient left the ED. bb Signatures: Dispatcher [employer] Gisel Velásquez Edgar, RN RN em Staci Claros, RN RN bb Sharron Sow, Renetta Nick RN, ea, MD MD maCalos
--- NOTE | 2021-04-01 00:19 | EDPHYS ---
Physician Documentation [facility] Name: Melia Tavares Age: 40 yrs Sex: Female : 1980 Arrival Date: 03/31/2021 Time: 21:50 Bed 7 Private MD: ED Physician Renetta Valera HPI: 03/31 22:42 This 40 yrs old Female presents to ER via Ambulatory with complaints of ma2 Headache, with pressure. 22:42 The patient complains of pain to the forehead and left sabianist. Onset: The ma2 symptoms/episode began/occurred gradually, 2 day(s) ago. Severity of symptoms: At its worst the pain was moderate, in the emergency department the pain is unchanged. The patient has experienced similar episodes in the past. 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 - Social history:: Smoking status: unknown. - Family history:: not pertinent. ROS: 22:42 Constitutional: Negative for fever, chills, and weight loss. ma2 22:42 All other systems are negative. Exam: 22:42 Constitutional: This is a well developed, well nourished patient who is awake, alert, ma2 and in no acute distress. Chest/axilla: Normal chest wall appearance and motion. Nontender with no deformity. No lesions are appreciated. Cardiovascular: Regular rate and rhythm with a normal S1 and S2. No gallops, murmurs, or rubs. Normal PMI, no JVD. No pulse deficits. Respiratory: Lungs have equal breath sounds bilaterally, clear to auscultation and percussion. No rales, rhonchi or wheezes noted. No increased work of breathing, no retractions or nasal flaring. Abdomen/GI: Soft, non-tender, with normal bowel sounds. No distension or tympany. No guarding or rebound. No evidence of tenderness throughout. Back: No spinal tenderness. No costovertebral tenderness. Full range of motion. Skin: Warm, dry with normal turgor. Normal color with no rashes, no lesions, and no evidence of cellulitis. MS/ Extremity: Pulses equal, no cyanosis. Neurovascular intact. Full, normal range of motion. Neuro: Awake and alert, GCS 15, oriented to person, place, time, and situation. Cranial nerves II-XII grossly intact. Motor strength 5/5 in all extremities. Sensory grossly intact. Cerebellar exam normal. Normal gait. Vital Signs: 22:21 BP 129 / 80; Pulse 69; Resp 18; Temp 97.9; Pulse Ox 98% ; Weight 81.65 kg; Height 5 ft. ea 7 in. (170.18 cm); 23:25 BP 121 / 79; Pulse 77; Resp 16 S; Pulse Ox 98% on R/A; Pain 0/10; bb 04/01 00:24 BP 118 / 69; Pulse 69; Resp 14 S; Pulse Ox 98% on R/A; bb 00:34 Temp 97.5(TE); Pain 0/10; bb 03/31 22:21 Body Mass Index 28.19 (81.65 kg, 170.18 cm) ea MDM: 03/31 22:20 Patient medically screened. ma2 22:42 Differential diagnosis: hypoglycemia, sinusitis, tension headache, uremia, vasomotor ma2 headache. 04/01 00:17 Data reviewed: vital signs, nurses notes. Counseling: I had a detailed discussion with ma2 the patient and/or guardian regarding: the historical points, exam findings, and any diagnostic results supporting the discharge/admit diagnosis, the presence of at least one elevated blood pressure reading (>120/80) during this emergency department visit, the need for outpatient follow up. Response to treatment: the patient's symptoms have resolved after treatment. 03/31 22:34 Order name: CBC with Diff; Complete Time: 23:35 [facility] 03/31 22:34 Order name: CMP; Complete Time: 00:20 [facility] 03/31 22:34 Order name: CT Head Brain wo Cont [facility] 03/31 22:48 Order name: Urine --Ancillary (enter results); Complete Time: 23:27 em 03/31 22:49 Order name: Urine Dipstick-Ancillary EDSD 03/31 22:34 Order name: Urine Dipstick-Ancillary (obtain specimen); Complete Time: 22:48 [facility] 03/31 22:34 Order name: Urine Test (obtain specimen); Complete Time: 22:48 ma2 Administered Medications: 03/31 22:46 Drug: NS 0.9% 1000 ml Route: IV; Rate: 1 bolus; Site: right forearm; bb 04/01 00:25 Follow up: IV Status: Completed infusion; IV Intake: 1000ml 03/31 22:46 Drug: Zofran (Ondansetron) 4 mg Route: IVP; Site: right forearm; bb 23:25 Follow up: Response: No adverse reaction bb 22:46 Drug: TORadol (ketorolac) 30 mg Route: IVP; Site: right forearm; bb 23:25 Follow up: Response: No adverse reaction bb 22:48 Drug: Reglan (metoCLOPramide) 20 mg Route: IVP; Site: right forearm; bb 23:25 Follow up: Response: No adverse reaction bb Disposition Summary: 04/01/21 00:18 Discharge Ordered Location: Home ma2 Condition: Stable ma2 Diagnosis - Tension-type headache ma2 Followup: ma2 - With: Private Physician - When: Tomorrow - Reason: If symptoms return, Continuance of care Discharge Instructions: - Discharge Summary Sheet ma2 - General Headache Without Cause ma2 Forms: - Medication Reconciliation Form ma2 - Thank You Letter ma2 - Antibiotic Education ma2 - Prescription Opioid Use ma2 Prescriptions: - Reglan 10 mg Oral Tablet - take 1 tablet by ORAL route every 6 hours . take 30 minutes before meals and at ma2 bedtime; 100 tablet; Refills: 0, Product Selection Permitted - Diclofenac Sodium 75 mg Oral Tablet Sustained Release - take 1 tablet by ORAL route 2 times per day; 30 tablet; Refills: 0, Product ma2 Selection Permitted Signatures: Dispatcher [employer] Staci Gambino RN RN bb Antunez, Elena, RN RN ea Alzahri, Mohammad, MD MD ma2
[2021-04-01 00:55] VITALS: O2SAT 98
[2021-04-01 00:59] VITALS: BP 118/69
[2021-04-01 01:00] VITALS: TEMP 97.5
--- NOTE | 2021-04-01 13:41 | RAD REPORT ---
EXAM DESCRIPTION: CT - Head Brain Wo Cont - 04/01/2021 6:30 am CLINICAL HISTORY: The patient is 40 years old and is Female; PAIN TECHNIQUE: Axial computed tomography images of the head/brain without intravenous contrast. Sagitt al and coronal reformatted images were created and reviewed. This CT exam was performed using one o r more of the following dose reduction techniques: automated exposure control, adjustment of the mA and/or kV according to patient size, and/or use of iterative reconstruction technique. COMPARISON: No relevant prior studies available. FINDINGS: Brain: Unremarkable. No hemorrhage. No significant white matter disease. No edema. Ventricles: Unremarkable. No ventriculomegaly. Bones/joints: Unremarkable. No acute fracture. Soft tissues: Unremarkable. Sinuses: Unremarkable as visualized. Mastoid air cells: Unremarkable as visualized. No mastoid effusion. IMPRESSION: No acute intracranial abnormality. Electronically signed by: Tato Andrade MD 03/31/2021 11:17 PM CDT Due to temporary technical issues with the PACS/Fluency reporting system, reports are being signed by the in house radiologists without review as a courtesy to insure prompt reporting. The interpreting radiologist is fully responsible for the content of the report.
== END 2021-04-01 00:35 | disposition home or self-care (01) ==
LOC: ER 21:46
DX: G44.209 Tension-type headache, unspecified, not intractable (principal); E11.9 Type 2 diabetes mellitus without complications
CPT/HCPCS: 36415; 70450; 80053; 81003; 81025; 85025; 96361; 96374; 96375; 99284; J2405; J2765; J7030

== ENCOUNTER 2021-04-15 14:55 | Emergency (ER) | payer SELFPAY ==
--- NOTE | 2021-04-15 16:39 | EDPHYS ---
Physician Documentation [facility] Name: Melia Tavares Age: 40 yrs Sex: Female : 1980 Arrival Date: 04/15/2021 Time: 15:00 Bed Waiting Private MD: ED Physician Damaso Resendez HPI: 04/15 17:13 This 40 yrs old Female presents to ER via Ambulatory with complaints of covid kb exposure/symptoms. 17:13 The patient or guardian reports difficulty breathing, flu symptoms, low-grade fever. kb Onset: The symptoms/episode began/occurred today. Severity of symptoms: At their worst the symptoms were moderate, in the emergency department the symptoms are unchanged. Modifying factors: The symptoms are alleviated by nothing, the symptoms are aggravated by nothing. Associated signs and symptoms: Pertinent positives: fever, Pertinent negatives: chest pain, diarrhea, ear ache, nausea, rhinorrhea, sore throat, vomiting. The patient has not experienced similar symptoms in the past. The patient has not recently seen a physician. recently tested positive for COVID. Today pt has had bodyaches, shortness of breath on exertion, headache, fever and chills.. 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 - Social history:: Smoking status: Patient denies any tobacco usage or history of. ROS: 17:12 Abdomen/GI: Negative for abdominal pain, nausea, vomiting, diarrhea, and constipation. kb 17:12 Constitutional: Positive for body aches, chills, fatigue, fever, malaise. 17:12 Respiratory: Positive for dyspnea on exertion, Negative for cough, hemoptysis, orthopnea, pleurisy, shortness of breath, sputum production, wheezing. 17:12 All other systems are negative. 17:15 Neuro: Positive for headache. kb Exam: 17:15 Constitutional: This is a well developed, well nourished patient who is awake, alert, kb and in no acute distress. Head/Face: Normocephalic, atraumatic. ENT: Moist Mucous membranes Respiratory: Respirations even and unlabored. No increased work of breathing, no retractions or nasal flaring. Skin: Warm, dry with normal turgor. Normal color. MS/ Extremity: Pulses equal, no cyanosis. Neurovascular intact. Full, normal range of motion. Neuro: Awake and alert, GCS 15, oriented to person, place, time, and situation. Moves all extremities. Normal gait. Psych: Awake, alert, with orientation to person, place and time. Behavior, mood, and affect are within normal limits. Vital Signs: 15:07 BP 119 / 74; Pulse 119; Resp 20; Temp 98.0; Pulse Ox 99% on R/A; iw MDM: 15:11 Patient medically screened. kb 17:15 Data reviewed: vital signs, nurses notes. Data interpreted: Pulse oximetry: on room air kb is 99 %. Interpretation: normal. Counseling: I had a detailed discussion with the patient and/or guardian regarding: the historical points, exam findings, and any diagnostic results supporting the discharge/admit diagnosis, lab results, the need for outpatient follow up, a family practitioner, to return to the emergency department if symptoms worsen or persist or if there are any questions or concerns that arise at home. 04/15 16:38 Order name: SARS-COV-2 RT PCR; Complete Time: 16:39 EDMS Administered Medications: No medications were administered Disposition: 04/16 06:40 Co-signature as Attending Physician, Damaso Resendez MD I agree with the assessment and kdr plan of care. Disposition Summary: 04/15/21 16:39 Discharge Ordered Location: Home kb Condition: Stable kb Diagnosis - Coronavirus infection, unspecified kb Followup: kb - With: Emergency Department - When: As needed - Reason: Worsening of condition Followup: kb - With: Private Physician - When: 2 - 3 days - Reason: Recheck today's complaints, Continuance of care, Re-evaluation by your physician Discharge Instructions: - Discharge Summary Sheet kb - Viral Respiratory Infection, [id number] kb - COVID-19 kb Forms: - Medication Reconciliation Form kb - Thank You Letter kb - Antibiotic Education kb - Prescription Opioid Use kb - Work release form jl7 Signatures: Dispatcher [employer] EDMS Marie Pickard FNP-C FNP-Ckb Damaso Resendez MD MD kdr Rupinder Viramontes, RN RN iw Corrections: (The following items were deleted from the chart) 04/15 15:11 15:09 PMHx: Asthma; 15:52 15:12 CORONAVIRUS+BRZ ordered. EDMS EDMS
--- NOTE | 2021-04-15 16:39 | ER ---
Nurse's Notes [facility] Name: Melia Tavares Age: 40 yrs Sex: Female : 1980 Arrival Date: 04/15/2021 Time: 15:00 Bed Waiting Private MD: Diagnosis: Coronavirus infection, unspecified Presentation: 04/15 15:07 Chief complaint: Patient states: tested positive for COVID, now has fever, iw headache chest pains and back pain. Coronavirus screen: Client presents with at least one sign or symptom that may indicate coronavirus-19. Standard/surgical mask placed on the client. Provider contacted for isolation considerations. Ebola Screen: Patient negative for fever greater than or equal to 101.5 degrees Fahrenheit, and additional compatible Ebola Virus Disease symptoms Patient denies exposure to infectious person. Patient denies travel to an Ebola-affected area in the 21 days before illness onset. No symptoms or risks identified at this time. Initial Sepsis Screen: Does the patient meet any 2 criteria? No. Patient's initial sepsis screen is negative. Does the patient have a suspected source of infection? No. Patient's initial sepsis screen is negative. Risk Assessment: Do you want to hurt yourself or someone else? Patient reports no desire to harm self or others. Onset of symptoms was April 14, 2021. 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 - Social history:: Smoking status: Patient denies any tobacco usage or history of. Screenin:30 Abuse screen: Denies threats or abuse. Denies injuries from another. Nutritional jl7 screening: No deficits noted. Tuberculosis screening: No symptoms or risk factors identified. Fall Risk None identified. Assessment: 16:30 General: Appears in no apparent distress. Behavior is calm, cooperative, appropriate jl7 for age. Pain: Denies pain. Neuro: Level of Consciousness is awake, alert, obeys commands, Oriented to person, place, time, situation. Cardiovascular: Patient's skin is warm and dry. Respiratory: Airway is patent Respiratory effort is even, unlabored, Respiratory pattern is regular, symmetrical. Derm: Skin is pink, warm \T\ dry. Vital Signs: 15:07 BP 119 / 74; Pulse 119; Resp 20; Temp 98.0; Pulse Ox 99% on R/A; ED Course: 15:00 Patient arrived in ED. am2 15:09 Triage completed. iw 15:10 Marie Pickard FNP-C is [facility]. kb 15:11 Damaso Resendez MD is Attending Physician. kb 15:30 COVID swab sent to lab. jl7 16:30 Patient has correct armband on for positive identification. jl7 16:46 Leonardo Garcia, RN is Primary Nurse. jl7 16:50 No provider procedures requiring assistance completed. Patient did not have IV access jl7 during this emergency room visit. Administered Medications: No medications were administered Outcome: 15:30 Discharged to home ambulatory. jl7 15:30 Condition: stable 15:30 Discharge instructions given to patient, Instructed on discharge instructions, follow up and referral plans. Demonstrated understanding of instructions, follow-up care. 16:39 Discharge ordered by MD. kb 16:51 Patient left the ED. jl7 Signatures: Marie Pickard FNP-C FNP-Ckb Williams, Irene, RN RN Leonardo Garcia RN RN jl7 Charlene Bird am2 Corrections: (The following items were deleted from the chart) 15:11 15:09 PMHx: Asthma; [facility]
[2021-04-15 16:56] VITALS: BP 119/74; TEMP 98; O2SAT 99
== END 2021-04-15 16:51 | disposition home or self-care (01) ==
LOC: ER 14:55
DX: U07.1 COVID-19 (principal); E11.9 Type 2 diabetes mellitus without complications
CPT/HCPCS: 99281; U0003

== ENCOUNTER 2021-06-13 09:55 | Emergency (ER) | payer SELFPAY ==
[2021-06-13 10:35] LABS: Absolute Lymphocytes (CBC) 2.7 K/uL (0.7-4.9); Basophils % 0.9 % (0-1.3); Lymphocytes % 32.3 % (15.3-44.8); MPV 8.9 fL (7.6-11.3); RBC Red Blood Cell Count 4.12 M/uL (3.86-4.86)
[2021-06-13 10:55] LABS: ALT/SGPT 31 U/L (12-78); AST/SGOT 11 U/L (15-37); Albumin 3.7 g/dL (3.4-5.0); Alkaline Phosphatase 79 U/L (45-117); BUN Blood Urea Nitrogen 11 mg/dL (7-18); Bicarbonate 24 mmol/L (21-32); Bilirubin Direct < 0.1 mg/dL (0-0.2); Bilirubin Total 0.1 mg/dL (0.2-1.0); Glucose Level 184 mg/dL (74-106); NT PRO-BNP 118 pg/mL (<125); Potassium 3.8 mmol/L (3.5-5.1); Protein, Total 7.4 g/dL (6.4-8.2); Sodium Level 141 mmol/L (136-145); Troponin (Emerg Dept Use Only) < 0.02 ng/mL (0.0-0.045)
--- NOTE | 2021-06-13 11:33 | ER ---
Nurse's Notes [facility] Name: Melia Tavares Age: 40 yrs Sex: Female : 1980 Arrival Date: 06/13/2021 Time: 09:56 Bed 27 Private MD: Diagnosis: Chest pain, unspecified Presentation: 06/13 10:09 Chief complaint: Patient states: Right upper chest pain that began this morning. Pain vg1 does not radiate. Coronavirus screen: Vaccine status: Patient reports being unvaccinated. Client denies travel out of the [place] in the last 14 days. Ebola Screen: Patient negative for fever greater than or equal to 101.5 degrees Fahrenheit, and additional compatible Ebola Virus Disease symptoms. Initial Sepsis Screen: Does the patient meet any 2 criteria? No. Patient's initial sepsis screen is negative. Does the patient have a suspected source of infection? No. Patient's initial sepsis screen is negative. Risk Assessment: Do you want to hurt yourself or someone else? Patient reports no desire to harm self or others. Onset of symptoms was June 13, 2021. 10:09 Method Of Arrival: Ambulatory vg1 10:09 Acuity: KATY 3 vg1 Triage Assessment: 10:11 General: Appears in no apparent distress. comfortable, Behavior is calm, cooperative. vg1 Pain: Complains of pain in anterior aspect of right upper chest Pain currently is 0 out of 10 on a pain scale. at worst was 10 out of 10 on a pain scale. Quality of pain is described as pressure, sharp, Pain began 2 hours ago. Is intermittent. EENT: No signs and/or symptoms were reported regarding the EENT system. Neuro: Level of Consciousness is awake, alert, obeys commands, Denies dizziness, headache. Cardiovascular: Patient's skin is warm and dry. Respiratory: Airway is patent Respiratory effort is even, unlabored, Denies cough, shortness of breath pain with respiration. GI: Patient currently denies diarrhea, nausea, vomiting. : No signs and/or symptoms were reported regarding the genitourinary system. Derm: Skin is intact, is healthy with good turgor. Musculoskeletal: Circulation, motion, and sensation intact. Historical: - Allergies: 10:11 No Known Allergies; vg1 - Home Meds: 10:33 None [Active]; jl7 - PMHx: 10:33 None; jl7 - PSHx: 10:33 tubal; jl7 - Immunization history:: Adult Immunizations up to date, Client reports having NOT received the Covid vaccine. - Social history:: Smoking status: Patient denies any tobacco usage or history of. - Family history:: not pertinent. - Hospitalizations: : No recent hospitalization is reported. Screenin:13 Abuse screen: Denies threats or abuse. Nutritional screening: No deficits noted. vg1 Tuberculosis screening: No symptoms or risk factors identified. Fall Risk No fall in past 12 months (0 pts). No secondary diagnosis (0 pts). IV access (20 points). Ambulatory Aid- None/Bed Rest/Nurse Assist (0 pts). Gait- Normal/Bed Rest/Wheelchair (0 pts) Mental Status- Oriented to own ability (0 pts). Total Calvo Fall Scale indicates No Risk (0-24 pts). Assessment: 10:14 Pain: Pain does not radiate. vg1 10:20 General: Appears in no apparent distress. uncomfortable, Behavior is calm, cooperative, jl7 appropriate for age. Pain: Complains of pain in anterior aspect of right upper chest Pain does not radiate. Pain currently is 0 out of 10 on a pain scale. at worst was 9 out of 10 on a pain scale. Quality of pain is described as throbbing, Pain began suddenly, Is intermittent. Neuro: Level of Consciousness is awake, alert, obeys commands, Oriented to person, place, time, situation. Cardiovascular: Patient's skin is warm and dry. Respiratory: Airway is patent Respiratory effort is even, unlabored, Respiratory pattern is regular, symmetrical. Derm: Skin is pink, warm \T\ dry. 11:34 Reassessment: Dr. Guzman at bedside discussing results and POC. jl7 Vital Signs: 10:09 BP 133 / 79; Pulse 85; Resp 16; Temp 98.2; Pulse Ox 100% ; Weight 92.9 kg; Height 5 ft. vg1 1 in. (154.94 cm); Pain 0/10; 10:36 BP 111 / 71; Pulse 79; Resp 15; Pulse Ox 100% ; Pain 0/10; jl7 11:30 BP 123 / 75; Pulse 70; Resp 15; Pulse Ox 100% ; jl7 10:09 Body Mass Index 38.70 (92.90 kg, 154.94 cm) vg1 ED Course: 09:56 Patient arrived in ED. ds1 09:59 Raymundo Guzman MD is Attending Physician. rn 10:11 Triage completed. vg1 10:13 Leonardo Garcia, RN is Primary Nurse. jl7 10:13 Patient has correct armband on for positive identification. Placed in gown. Bed in low vg1 position. Call light in reach. Side rails up X 1. pvc monitor on. Pulse ox on. NIBP on. 10:13 No provider procedures requiring assistance completed. Patient maintains SpO2 vg1 saturation greater than 95% on room air. 10:14 Arm band placed on. vg1 10:36 Initial lab(s) drawn, by me, sent to lab. EKG done, by ED staff, reviewed by Raymundo Guzman MD. Inserted saline lock: 20 gauge in right forearm, using aseptic technique. Blood collected. 11:16 XRAY Chest (1 view) In Process Unspecified. EDMS 11:43 IV discontinued, intact, bleeding controlled, No redness/swelling at site. Pressure jl7 dressing applied. Administered Medications: No medications were administered Outcome: 11:32 Discharge ordered by . rn 11:43 Discharged to home ambulatory. jl7 11:43 Condition: stable 11:43 Discharge instructions given to patient, Instructed on discharge instructions, follow up and referral plans. Demonstrated understanding of instructions, follow-up care. 11:44 Patient left the ED. jl7 Signatures: Dispatcher [employer] EDRI Waleska Flannery ds1 Raymundo Guzman MD MD rn Leal, Jahala, RN RN gaston7 Kendra Johnson RN RN vg1 Corrections: (The following items were deleted from the chart) 10:11 10:11 PMHx: Diabetes - NIDDM; vg1 vg1 10:34 10:33 Home Meds: Metformin Oral; gaston7 jl7 10:34 10:33 PMHx: Diabetes mellitus; milena jl7
--- NOTE | 2021-06-13 11:33 | EDPHYS ---
Physician Documentation [facility] Name: Melia Tavares Age: 40 yrs Sex: Female : 1980 Arrival Date: 06/13/2021 Time: 09:56 Bed 27 Private MD: ED Physician Raymundo Guzman HPI: 06/13 10:19 This 40 yrs old Female presents to ER via Ambulatory with complaints of Chest rn Pain. 10:19 The patient or guardian reports chest pain that is located primarily in the anterior rn chest wall, right. Onset: last night. The pain does not radiate. Associated signs and symptoms: The patient has no apparent associated signs or symptoms, Pertinent negatives: abdominal pain, cough, diaphoresis, dizziness, headache, lower extremity swelling, lightheadedness, nausea, near syncope, palpitations, shortness of breath, syncope, vomiting. The chest pain is described as dull. Duration: The patient or guardian reports multiple episodes, that are intermittent, the episodes last approximately 2 second(s). Modifying factors: The symptoms are alleviated by nothing. the symptoms are aggravated by nothing. Severity of pain: At its worst the pain was very mild in the emergency department the pain has resolved. The patient has not experienced similar symptoms in the past. The patient has not recently seen a physician. Patient reports right-sided chest pain, began last night, last for a few seconds, currently pain-free. Denies any recent illness or cough. No trauma. Denies shortness of breath. No cardiac or lung problems in the past.. Historical: - Allergies: 10:11 No Known Allergies; vg1 - Home Meds: 10:33 None [Active]; jl7 - PMHx: 10:33 None; jl7 - PSHx: 10:33 tubal; jl7 - Immunization history:: Adult Immunizations up to date, Client reports having NOT received the Covid vaccine. - Social history:: Smoking status: Patient denies any tobacco usage or history of. - Family history:: not pertinent. - Hospitalizations: : No recent hospitalization is reported. ROS: 10:19 Constitutional: Negative for fever, chills, and weight loss, Eyes: Negative for injury, rn pain, redness, and discharge, Neck: Negative for injury, pain, and swelling, Cardiovascular: Negative for palpitations, and edema, Respiratory: Negative for shortness of breath, cough, wheezing Abdomen/GI: Negative for abdominal pain, nausea, vomiting, diarrhea, and constipation, Back: Negative for injury and pain, : Negative for injury, bleeding, discharge, and swelling, MS/Extremity: Negative for injury and deformity, Skin: Negative for injury, rash, and discoloration, Neuro: Negative for headache, weakness, numbness, tingling, and seizure. 10:19 All other systems are negative. Exam: 10:19 Constitutional: This is a well developed, well nourished patient who is awake, alert, rn and in no acute distress. Head/Face: Normocephalic, atraumatic. Eyes: Periorbital areas with no swelling, redness, or edema. Chest/axilla: Normal chest wall appearance and motion. Nontender with no deformity. No lesions are appreciated. Cardiovascular: Regular rate and rhythm. No pulse deficits. Respiratory: Speaking full sentences, unlabored. No increased work of breathing, no retractions or nasal flaring. Abdomen/GI: Soft, non-tender Skin: Warm, dry with normal turgor. Normal color with no rashes, no lesions, and no evidence of cellulitis. MS/ Extremity: Pulses equal, no cyanosis. Neurovascular intact. Full, normal range of motion. Equal circumference. Neuro: Awake and alert, GCS 15 10:32 ECG was reviewed by the Attending Physician. rn Vital Signs: 10:09 BP 133 / 79; Pulse 85; Resp 16; Temp 98.2; Pulse Ox 100% ; Weight 92.9 kg; Height 5 ft. vg1 1 in. (154.94 cm); Pain 0/10; 10:36 BP 111 / 71; Pulse 79; Resp 15; Pulse Ox 100% ; Pain 0/10; jl7 11:30 BP 123 / 75; Pulse 70; Resp 15; Pulse Ox 100% ; jl7 10:09 Body Mass Index 38.70 (92.90 kg, 154.94 cm) vg1 MDM: 10:00 Patient medically screened. rn 11:31 Differential diagnosis: acute pericarditis, anxiety, chest wall pain, costochondritis, rn esophagitis, gastroesophageal reflux disease (GERD), pleurisy, pneumonia, pneumothorax. HEART Score: History: Slightly Suspicious (0), ECG: Normal (0), Age: < or = 45 years (0), Risk Factors: No Risk Factors Known (0), Troponin: < or = 1 x Normal Limit (0), Total Score = 0. The patient was not given aspirin in the Emergency Department. The patient's pulmonary embolism risk score was calculated as follows: No Risks (0 Pts) Total Score: 0-2 points. This patient was found to be at low risk for a pulmonary embolism by using the Well's assessment criteria. NITO Risk Score: TOTAL SCORE = 0. Data reviewed: vital signs, nurses notes, lab test result(s), EKG, radiologic studies, plain films, and as a result, I will discharge patient. Data interpreted: manager monitoring: rate is 79 beats/min, rhythm is normal sinus rhythm, regular, with no ectopy, Interpretation: normal rate, normal rhythm, Pulse oximetry: on room air is 100 %. Interpretation: normal. Test interpretation: by ED physician or midlevel provider: ECG, plain radiologic studies, Chest x-ray clear of acute infiltrate or pneumothorax. Counseling: I had a detailed discussion with the patient and/or guardian regarding: the historical points, exam findings, and any diagnostic results supporting the discharge/admit diagnosis, lab results, radiology results, the need for outpatient follow up, to return to the emergency department if symptoms worsen or persist or if there are any questions or concerns that arise at home. Response to treatment: the patient's symptoms have markedly improved after treatment. Special discussion: Based on the patient's history, exam, and Dx evaluation, there is no indication for emergent intervention or inpatient Tx. It is understood by the patient/guardian that if the Sx's persist or worsen they need to return immediately for re-evaluation. I discussed with the patient/guardian in detail that at this point there is no indication for admission to the hospital. It is understood, however, that if the symptoms persist or worsen the patient needs to return immediately for re-evaluation. 06/13 10:09 Order name: Basic Metabolic Panel rn 06/13 10:09 Order name: CBC with Diff rn 06/13 10:09 Order name: LFT's rn 06/13 10:09 Order name: NT PRO-BNP rn 06/13 10:09 Order name: Troponin (emerg Dept Use Only) rn 06/13 10:10 Order name: Basic Metabolic Panel; Complete Time: 11:17 EDMS 06/13 10:09 Order name: XRAY Chest (1 view) rn 06/13 10:09 Order name: EKG; Complete Time: 10:10 rn 06/13 10:09 Order name: Cardiac monitoring; Complete Time: 10:32 rn 06/13 10:09 Order name: EKG - Nurse/Tech; Complete Time: 10:32 rn 06/13 10:10 Order name: CBC with Automated Diff; Complete Time: 10:49 EDMD 06/13 10:10 Order name: Liver (Hepatic) Function; Complete Time: 11: EDMD 06/13 10:10 Order name: NT PRO-BNP; Complete Time: 11: EDMD 06/13 10:10 Order name: Troponin (Emerg Dept Use Only); Complete Time: 11: EDMD 06/13 10:09 Order name: IV Saline Lock; Complete Time: 10:32 rn 06/13 10:09 Order name: Labs collected and sent; Complete Time: 10:33 rn 06/13 10:09 Order name: O2 Per Protocol; Complete Time: 10:33 rn 06/13 10:09 Order name: O2 Sat Monitoring; Complete Time: 10:33 rn EC:32 Rate is 71 beats/min. Rhythm is regular. QRS Wilson is Normal. LA interval is normal. QRS rn interval is normal. QT interval is normal. No Q waves. T waves are Inverted in leads III, V1. No ST changes noted. Clinical impression: NSR w/ Non-specific ST/T Changes. Interpreted by me. Reviewed by me. Administered Medications: No medications were administered Disposition Summary: 06/13/21 11:32 Discharge Ordered Location: Home rn Problem: new rn Symptoms: have improved rn Condition: Stable rn Diagnosis - Chest pain, unspecified rn Followup: rn - With: Private Physician - When: As needed - Reason: Recheck today's complaints, Re-evaluation by your physician Discharge Instructions: - Discharge Summary Sheet rn - Nonspecific Chest Pain, Adult rn - Pain Without a Known Cause rn Forms: - Medication Reconciliation Form rn - Thank You Letter rn - Antibiotic public relations intern - Prescription Opioid Use rn Signatures: Dispatcher [employer] EDRaymundo Santoyo MD MD rn Leal, Jahala, RN RN jl7 Kendra Johnson, RN RN vg1 Corrections: (The following items were deleted from the chart) 10:11 10:11 PMHx: Diabetes - NIDDM; vg1 vg1 10 10:33 [place] Meds: Metformin Oral; jl7 jl7 10:33 PMHx: Diabetes mellitus; jl7 jl7
--- NOTE | 2021-06-13 11:43 | RAD REPORT ---
EXAM DESCRIPTION: RAD - Chest Single View - 06/13/2021 11:16 am CLINICAL HISTORY: CHEST PAIN COMPARISON: Chest Single View dated 01/20/2021; Chest Single View dated 11/18/2019; Chest Single View dated 02/20/2019; CHEST PA AND LAT 2 VIEW dated 05/26/2010 FINDINGS: Lines: None. Lungs: No evidence of edema or pneumonia. Pleural: No significant pleural effusions or pneumothorax. Cardiac: The heart size is within normal limits. Bones: No acute fractures. Other: IMPRESSION: No acute cardiopulmonary disease.
[2021-06-13 11:51] VITALS: TEMP 98.2; O2SAT 100
[2021-06-13 11:53] VITALS: BP 123/75
== END 2021-06-13 11:44 | disposition home or self-care (01) ==
LOC: ER 09:55
DX: R07.9 Chest pain, unspecified (principal)
CPT/HCPCS: 36415; 71045; 80048; 80076; 83880; 84484; 85025; 93005; 99285

== ENCOUNTER 2021-10-26 22:45 | Emergency (ER) | payer SELFPAY ==
--- OUTSIDE RECORDS SUMMARY | 2021-10-26 22:49 | XMS REPORT | Continuity of Care Document ---
:1980 Author Organization [facility] Address [address] [place] [address] Dr. Cai [address] [place] [id number] Care Team Providers Name Role Phone Eliezer Attending Clinician Unavailable Eliezer Admitting Clinician Unavailable Problems This patient has no known problems. Allergies, Adverse Reactions, Alerts This patient has no known allergies or adverse reactions. Medications This patient has no known medications. Procedures This patient has no known procedures. Encounters Start End Encounter Admission Attending Care Care Encounter Source Date/Time Date/Time Type Type Clinicians Facility Department ID 2020-12-08 2020-12-08 Outpatient Eliezer RANADLL G [id number] [place] 09:21:00 09:21:00 0308 [facility] Results This patient has no known results.
[2021-10-26 23:46] LABS: Absolute Lymphocytes (CBC) 3.2 K/uL (0.7-4.9); Hematocrit 37.5 % (36.0-45.0); Lymphocytes % 27.9 % (15.3-44.8); MPV 8.7 fL (7.6-11.3)
[2021-10-27 00:05] LABS: ALT/SGPT 38 U/L (12-78); AST/SGOT 15 U/L (15-37); Albumin 3.4 g/dL (3.4-5.0); Alkaline Phosphatase 80 U/L (45-117); BUN Blood Urea Nitrogen 15 mg/dL (7-18); Bicarbonate 25 mmol/L (21-32); Bilirubin Direct < 0.1 mg/dL (0-0.2); Bilirubin Total 0.2 mg/dL (0.2-1.0); Glucose Level 198 mg/dL (74-106); Magnesium 2.1 mg/dL (1.8-2.4); NT PRO-BNP 18 pg/mL (<125); Potassium 3.7 mmol/L (3.5-5.1); Protein, Total 7.5 g/dL (6.4-8.2); Sodium Level 139 mmol/L (136-145)
--- NOTE | 2021-10-27 00:36 | ER ---
Nurse's Notes [facility] Name: Melia Tavares Age: 41 yrs Sex: Female : 1980 Arrival Date: 10/26/2021 Time: 22:51 Bed 24 Private MD: Diagnosis: Chest pain, unspecified Presentation: 10/26 23:08 Chief complaint: Patient states: "I was having chest pain before I got here. I started tw5 taking some vitamin for hair growth and skin. After a few hours I just wasn't feeling myself. Later this afternoon I just started feeling weird. After I picked up the kids from school my chest started hurting, and it got worse. I let it calm down before driving here. No pain right now.". Coronavirus screen: Vaccine status: Patient reports being unvaccinated. Ebola Screen: Patient negative for fever greater than or equal to 101.5 degrees Fahrenheit, and additional compatible Ebola Virus Disease symptoms Patient denies exposure to infectious person. Patient denies travel to an Ebola-affected area in the 21 days before illness onset. Initial Sepsis Screen: Does the patient meet any 2 criteria? No. Patient's initial sepsis screen is negative. Does the patient have a suspected source of infection? No. Patient's initial sepsis screen is negative. Risk Assessment: Do you want to hurt yourself or someone else? Patient reports no desire to harm self or others. Onset of symptoms was October 26, 2021 at 21:30. 23:08 Method Of Arrival: Ambulatory tw5 23:08 Acuity: KATY 3 tw5 Triage Assessment: 23:11 General: Appears in no apparent distress. Behavior is calm, cooperative, appropriate tw5 for age. Pain: Pain currently is 0 out of 10 on a pain scale. at worst was 7 out of 10 on a pain scale. Quality of pain is described as squeezing. Cardiovascular: Rhythm is sinus rhythm. LITHOGRAPHIC STRIPPER: 23:07 LMP 10/26/2021 tw5 Historical: - Allergies: 23:11 No Known Allergies; tw5 - Home Meds: 23:11 None [Active]; tw5 - PMHx: 23:11 None; tw5 - PSHx: 23:11 tubal; tw5 - Immunization history:: Flu vaccine is not up to date. - Social history:: Smoking status: Patient/guardian denies using tobacco, Stopped _ months ago 1. Screenin:34 Abuse screen: Denies threats or abuse. Denies injuries from another. Nutritional tk1 screening: No deficits noted. Tuberculosis screening: No symptoms or risk factors identified. Fall Risk None identified. Assessment: 23:15 General: Appears comfortable, well groomed, well developed, well nourished, Behavior is tk1 calm, cooperative, appropriate for age. Pain: Complains of pain in anterior aspect of left upper chest Pain does not radiate. Pain currently is 8 out of 10 on a pain scale. Quality of pain is described as sharp, Pain began 4 hours ago. Is continuous. Neuro: No deficits noted. Cardiovascular: Reports chest pain, Denies palpitations, shortness of breath, Heart tones S1 S2 present Capillary refill < 3 seconds is brisk in bilateral fingers Clubbing of nail beds is absent JVD is absent Pulses are all present. Edema is absent. Respiratory: No deficits noted. Airway is patent Breath sounds are clear bilaterally. GI: No deficits noted. : No deficits noted. EENT: No deficits noted. Derm: No deficits noted. Musculoskeletal: No deficits noted. Vital Signs: 23:07 BP 121 / 84; Pulse 86; Resp 18; Temp 98.4(O); Pulse Ox 99% on R/A; Weight 89.36 kg; tw5 Height 5 ft. 2 in. (157.48 cm); Pain 0/10; 23:34 BP 117 / 78 LA Sitting (auto/reg); Pulse 94 MON; Resp 18 S; Temp 98.1(O); Pulse Ox 98% tk1 on R/A; Pain 8/10; 10/27 01:00 BP 120 / 71 LA Sitting (auto/reg); Pulse 91 MON; Resp 19 S; Pulse Ox 98% ; Pain 0/10; tk1 10/26 23:07 Body Mass Index 36.03 (89.36 kg, 157.48 cm) tw5 Vitals: 10/26 23:34 Cardiac Rhythm Assessment Regular Sinus rhythm. tk1 10/27 01:00 Cardiac Rhythm Assessment Regular Sinus rhythm. tk1 [place] Coma Score: 10/26 23:34 Eye Response: spontaneous(4). Verbal Response: oriented(5). Motor Response: obeys tk1 commands(6). Total: 15. ED Course: 22:51 Patient arrived in ED. wm 23:11 Triage completed. tw5 23:11 Arm band placed on. EKG completed in triage. Results shown to MD. tw5 23:18 Cameron Ambrose NP is PHCP. pm1 23:18 Luis Mckay MD is Attending Physician. pm1 23:34 Janis Membreno is Primary Nurse. tk1 23:34 Bed in low position. Call light in reach. Side rails up X2. campus monitor on. Pulse tk1 ox on. NIBP on. 23:34 No provider procedures requiring assistance completed. Inserted saline lock: 20 gauge tk1 in right hand, using aseptic technique. 23:43 XRAY Chest (1 view) In Process Unspecified. EDMS 10/27 01:00 IV discontinued, intact, bleeding controlled, No redness/swelling at site. Pressure tk1 dressing applied. 01:03 Basic Metabolic Panel Sent. tk1 Administered Medications: No medications were administered Outcome: 00:35 Discharge ordered by MD. pm1 01:00 Discharged to home tk1 01:00 Condition: stable 01:00 Discharge instructions given to patient, Instructed on discharge instructions, follow up and referral plans. Demonstrated understanding of instructions, follow-up care. 01:13 Patient left the ED. tk1 Signatures: Dispatcher [employer] EDAK Cameron Ambrose NP COMPUTED TOMOGRAPHY TECHNOLOGIST pm1 Hedy Stallings Tiffany tw5 Janis Membreno tk1
--- NOTE | 2021-10-27 00:36 | EDPHYS ---
Physician Documentation [facility] Name: Melia Tavares Age: 41 yrs Sex: Female : 1980 Arrival Date: 10/26/2021 Time: 22:51 Bed 24 Private MD: ED Physician Luis Mckay HPI: 10/26 23:19 This 41 yrs old Female presents to ER via Ambulatory with complaints of Chest pm1 Pain. 23:19 The patient or guardian reports chest pain that is located primarily in the mid-sternal pm1 area. Onset: today, at 12:00, 1 hour after drinking supplement for hair growth called louis. The pain does not radiate. Associated signs and symptoms: Pertinent negatives: abdominal pain, cough, diaphoresis, dizziness, headache, nausea, shortness of breath, vomiting. The chest pain is described as a pressure. Duration: The patient or guardian reports a single episode, that is now resolved. Modifying factors: The symptoms are alleviated by nothing. the symptoms are aggravated by nothing. Severity of pain: in the emergency department the pain has resolved. The patient has not experienced similar symptoms in the past. The patient has not recently seen a physician. 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 - Social history:: Smoking status: Patient/guardian denies using tobacco, Stopped _ months ago 1. ROS: 23:19 Constitutional: Negative for fever, chills, and weight loss. pm1 23:19 Respiratory: Negative for shortness of breath, cough, wheezing, and pleuritic chest pain, Abdomen/GI: Negative for abdominal pain, nausea, vomiting, diarrhea, and constipation, Back: Negative for injury and pain, MS/Extremity: Negative for injury and deformity, Skin: Negative for injury, rash, and discoloration, Neuro: Negative for headache, weakness, numbness, tingling, and seizure. 23:19 Cardiovascular: Positive for chest pain, Negative for palpitations. 23:19 All other systems are negative. Exam: 23:19 Constitutional: This is a well developed, well nourished patient who is awake, alert, pm1 and in no acute distress. Head/Face: Normocephalic, atraumatic. 23:19 Skin: Warm, dry with normal turgor. Normal color with no rashes, no lesions, and no evidence of cellulitis. MS/ Extremity: Pulses equal, no cyanosis. Neurovascular intact. Full, normal range of motion. 23:19 Eyes: Exam is negative for acute changes, Extraocular movements: no acute changes, Conjunctiva: no acute changes, no injection, Sclera: no acute changes, icterus, is not appreciated. 23:19 ENT: Exam is negative for Mouth: no acute changes, Lips: normal, moist, Oral mucosa: normal, pink and intact, moist. 23:19 Cardiovascular: Exam negative for acute changes, Rate: normal, Rhythm: regular, Pulses: no pulse deficits are appreciated, Heart sounds: normal, normal S1and S2. 23:19 Respiratory: Exam negative for acute changes, respiratory distress, shortness of breath, Breath sounds: are clear throughout. 23:19 Neuro: Exam negative for acute changes, Orientation: is normal, Mentation: is normal, Motor: is normal, moves all fours. Vital Signs: 23:07 BP 121 / 84; Pulse 86; Resp 18; Temp 98.4(O); Pulse Ox 99% on R/A; Weight 89.36 kg; tw5 Height 5 ft. 2 in. (157.48 cm); Pain 0/10; 23:34 BP 117 / 78 LA Sitting (auto/reg); Pulse 94 MON; Resp 18 S; Temp 98.1(O); Pulse Ox 98% tk1 on R/A; Pain 8/10; 10/27 01:00 BP 120 / 71 LA Sitting (auto/reg); Pulse 91 MON; Resp 19 S; Pulse Ox 98% ; Pain 0/10; tk1 10/26 23:07 Body Mass Index 36.03 (89.36 kg, 157.48 cm) tw5 [place] Coma Score: 10/26 23:34 Eye Response: spontaneous(4). Verbal Response: oriented(5). Motor Response: obeys tk1 commands(6). Total: 15. MDM: 23:23 Patient medically screened. pm1 10/27 00:35 Data reviewed: vital signs. Data interpreted: Pulse oximetry: on room air is 98 %. pm1 Interpretation: normal. Counseling: I had a detailed discussion with the patient and/or guardian regarding: the historical points, exam findings, and any diagnostic results supporting the discharge/admit diagnosis, lab results, radiology results, the need for outpatient follow up, to return to the emergency department if symptoms worsen or persist or if there are any questions or concerns that arise at home. 10/26 23:19 Order name: Basic Metabolic Panel pm1 10/26 23:19 Order name: CBC with Diff; Complete Time: 00:15 pm1 10/26 23:19 Order name: LFT's; Complete Time: 00:15 pm1 10/26 23:19 Order name: Magnesium; Complete Time: 00:15 pm1 10/26 23:19 Order name: NT PRO-BNP; Complete Time: 00:15 pm1 10/26 23:19 Order name: PT-INR; Complete Time: 00:15 pm1 10/26 23:17 Order name: EKG - Nurse/Tech; Complete Time: 23:17 tw5 10/26 23:17 Order name: EKG; Complete Time: 23:17 tw5 10/26 23:19 Order name: Troponin HS; Complete Time: 00:15 pm1 10/26 23:19 Order name: XRAY Chest (1 view) pm10/26 23:19 Order name: Cardiac monitoring pm10/26 23:19 Order name: IV Saline Lock pm10/26 23:19 Order name: Labs collected and sent pm10/26 23:19 Order name: Basic Metabolic Panel; Complete Time: 00:15 EDMS 10/26 23:19 Order name: O2 Per Protocol pm10/26 23:19 Order name: O2 Sat Monitoring pm1 Administered Medications: No medications were administered Disposition: 08:56 Co-signature as Attending Physician, Luis Mckay MD I agree with the assessment and sabrina plan of care. Disposition Summary: 10/27/21 00:35 Discharge Ordered Location: Home pm1 Problem: new pm1 Symptoms: have improved pm1 Condition: Stable pm1 Diagnosis - Chest pain, unspecified pm1 Followup: pm1 - With: Emergency Department - When: As needed - Reason: Worsening of condition Followup: pm1 - With: Private Physician - When: 2 - 3 days - Reason: Recheck today's complaints, Continuance of care, Re-evaluation by your physician Discharge Instructions: - Discharge Summary Sheet pm1 - Nonspecific Chest Pain, Adult pm1 Forms: - Medication Reconciliation Form pm1 - Thank You Letter pm1 - Antibiotic Education pm1 - Prescription Opioid Use pm1 Signatures: Dispatcher [employer] EDMS Luis Mckay MD MD cha Marinas, Patrick, HAMLET SHED HAND pm1 Maureen Cao tw5
[2021-10-27 04:50] VITALS: TEMP 98.1; O2SAT 98
[2021-10-27 04:52] VITALS: BP 120/71
--- NOTE | 2021-10-27 08:23 | EKG ---
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
--- NOTE | 2021-10-27 08:27 | RAD REPORT ---
EXAM DESCRIPTION: RAD - Chest Single View - 10/26/2021 11:43 pm CLINICAL HISTORY: CHEST PAIN COMPARISON: Single-view chest June 2021 TECHNIQUE: AP portable chest image was obtained 10/26/2021 11:43 pm . FINDINGS: No focal lung parenchymal process. No failure or volume overload findings. Under penetrate d technique and body habitus affects accentuate interstitial pattern. Heart and vasculature are normal. No measurable pleural effusion and no pneumothorax. No acute bony abnormality seen. No acute aortic findings suspected. IMPRESSION: No acute cardiopulmonary process. No significant change from comparison study.
== END 2021-10-27 01:13 | disposition home or self-care (01) ==
LOC: ER 22:45
DX: R07.9 Chest pain, unspecified (principal)
CPT/HCPCS: 36415; 71045; 80048; 80076; 83735; 83880; 84484; 85025; 85610; 93005; 99284

== ENCOUNTER 2022-02-05 15:03 | Emergency (ER) | payer SELFPAY ==
--- OUTSIDE RECORDS SUMMARY | 2022-02-05 15:06 | XMS REPORT | Continuity of Care Document ---
:1980 Author Organization [facility] Address [address] [place] [address] Dr. Cai [address] [place] [id number] Care Team Providers Name Role Phone Eliezer [...] Facility Department ID 2020-12-08 2020-12-08 Outpatient Eliezer RANDALL G [id number] [place] 09:21:00 09:21:00 0308 [facility] Results This patient has no known results.
--- NOTE | 2022-02-05 16:14 | RAD REPORT ---
EXAM DESCRIPTION: RAD - Foot Right 3 View - 02/05/2022 4:02 pm CLINICAL HISTORY: Right foot pain status post injury FINDINGS: No fracture or dislocation is seen Large posterior calcaneal spur. Small to moderate plantar calcaneal spur. No bony destructive lesions seen
--- NOTE | 2022-02-05 16:48 | RAD REPORT ---
EXAM DESCRIPTION: USExtremyared Venous Uni Ltd02/05/2022 4:26 pm CLINICAL HISTORY: Right leg pain and swelling. COMPARISON: None. FINDINGS: Right common femoral, superficial femoral, popliteal and right posterior tibial veins are compressible and demonstrate augmentation. Doppler demonstrates good flow. Grayscale, color and spectral analysis performed on all vessels IMPRESSION: No evidence of deep venous thrombosis involving the right lower extremity.
--- NOTE | 2022-02-05 16:50 | EDPHYS ---
Physician Documentation [facility] Name: Melia Tavares Age: 41 yrs Sex: Female : 1980 Arrival Date: 02/05/2022 Time: 15:06 Bed 10 Private MD: ED Physician Radha Stanton HPI: 02/05 15:45 This 41 yrs old Female presents to ER via Ambulatory with complaints of Leg cp Swelling - Foot Swelling. 15:45 The patient presents with swelling. The complaints affect the right foot. cp 15:45 Context: the patient can fully bear weight, the patient is able to ambulate, without cp difficulty, Patient reports while swimming in pool Tuesday, sustained small laceration to top of right foot. 15:45 Associated signs and symptoms: Pertinent negatives: fever, shortness of breath. 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 - Social history:: Smoking status: Patient denies any tobacco usage or history of. ROS: 15:50 MS/extremity: Positive for swelling, of the right foot, Negative for pain, paresthesias.cp 15:50 Constitutional: Negative for body aches, chills, fever, poor PO intake. cp 15:50 Cardiovascular: Negative for chest pain, palpitations. 15:50 Respiratory: Negative for cough, shortness of breath, wheezing. 15:50 Abdomen/GI: Negative for abdominal pain, nausea, vomiting, and diarrhea. 15:50 Back: Negative for pain at rest, pain with movement. 15:50 Neuro: Negative for altered mental status, headache, weakness. 15:50 All other systems are negative. Exam: 15:55 Constitutional: The patient appears in no acute distress, alert, awake, comfortable, cp non-toxic, well developed, well nourished. 15:55 Head/Face: Normocephalic, atraumatic. cp 15:55 Cardiovascular: Rate: normal, Rhythm: regular, Pulses: Pulses are 2+ in right dorsalis pedis artery. 15:55 Respiratory: the patient does not display signs of respiratory distress, Respirations: normal, no use of accessory muscles, no retractions, labored breathing, is not present, Breath sounds: are clear throughout, no decreased breath sounds. 15:55 Abdomen/GI: Exam negative for discomfort, distension, guarding, Inspection: abdomen appears normal. 15:55 Back: pain, is absent, ROM is normal. 15:55 Musculoskeletal/extremity: Extremities: grossly normal except: noted in the dorsum right foot: small, superficial wound with mild erythema, mild swelling noted, DVT Exam: pain, that is mild, of the right leg, swelling, that is mild, of the right leg. Vital Signs: 15:18 BP 130 / 94; Pulse 95; Resp 16; Temp 98.4; Pulse Ox 99% on R/A; iw MDM: 15:23 Patient medically screened. cp 16:00 Differential diagnosis: cellulitis, fracture, DVT. cp 16:48 Data reviewed: vital signs, nurses notes, radiologic studies, plain films, ultrasound. cp 16:48 Counseling: I had a detailed discussion with the patient and/or guardian regarding: the cp historical points, exam findings, and any diagnostic results supporting the discharge/admit diagnosis, radiology results, the need for outpatient follow up, a family practitioner. Response to treatment: the patient's symptoms have mildly improved after treatment, and as a result, I will discharge patient. 02/05 15:37 Order name: US Extremity Venous Unilateral Ltd; Complete Time: 16:52 cp 02/05 16:52 Interpretation: Report reviewed. cp 02/05 15:38 Order name: XRAY Foot RIGHT 3 View; Complete Time: 16:52 cp 02/05 16:52 Interpretation: Report reviewed. cp Administered Medications: No medications were administered Disposition Summary: 02/05/22 16:49 Discharge Ordered Location: Home cp Problem: new cp Symptoms: have improved cp Condition: Stable cp Diagnosis - Local infection of the skin and subcutaneous tissue, unspecified - right foot cp Followup: cp - With: Private Physician - When: 2 - 3 days - Reason: Worsening of condition Discharge Instructions: - Discharge Summary Sheet cp - Cellulitis, Adult cp Forms: - Medication Reconciliation Form cp - Thank You Letter cp - Antibiotic Education cp - Prescription Opioid Use cp Prescriptions: - Cephalexin 500 mg Oral Capsule - take 1 capsule by ORAL route every 6 hours for 7 days; 28 capsule; Refills: 0, cp Product Selection Permitted Signatures: Dispatcher MedHoRupinder Garcia, RN RN iw Luis Nash, PA PA cp
--- NOTE | 2022-02-05 16:50 | ER ---
Nurse's Notes [facility] Name: Melia Tavares Age: 41 yrs Sex: Female : 1980 Arrival Date: 02/05/2022 Time: 15:06 Bed 10 Private MD: Diagnosis: Local infection of the skin and subcutaneous tissue, unspecified-right foot Presentation: 02/05 15:18 Chief complaint: Patient states: James I was swimming and I cut my foot and then I was iw cleaning a bathtub and then yesterday noticed her right foot was swollen. Coronavirus screen: At this time, the client does not indicate any symptoms associated with coronavirus-19. Ebola Screen: Patient negative for fever greater than or equal to 101.5 degrees Fahrenheit, and additional compatible Ebola Virus Disease symptoms Patient denies exposure to infectious person. Patient denies travel to an Ebola-affected area in the 21 days before illness onset. No symptoms or risks identified at this time. Initial Sepsis Screen: Does the patient meet any 2 criteria? No. Patient's initial sepsis screen is negative. Does the patient have a suspected source of infection? No. Patient's initial sepsis screen is negative. Risk Assessment: Do you want to hurt yourself or someone else? Patient reports no desire to harm self or others. Onset of symptoms was January 31, 2022. 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 - Social history:: Smoking status: Patient denies any tobacco usage or history of. Screenin:50 Abuse screen: Denies threats or abuse. Denies injuries from another. Nutritional iw screening: No deficits noted. Tuberculosis screening: No symptoms or risk factors identified. Assessment: 15:49 General: Appears in no apparent distress. Behavior is calm, cooperative. Pain: iw Complains of pain in right foot. Neuro: Level of Consciousness is awake, alert, obeys commands, Moves all extremities. Respiratory: Respiratory effort is even, unlabored. Derm: Skin is intact, is healthy with good turgor. Musculoskeletal: Range of motion: intact in all extremities, Swelling present in right foot. Vital Signs: 15:18 BP 130 / 94; Pulse 95; Resp 16; Temp 98.4; Pulse Ox 99% on R/A; iw ED Course: 15:06 Patient arrived in ED. ds1 15:08 Luis Nash PA is PHCP. cp 15:08 Radha Stanton MD is Attending Physician. cp 15:20 Triage completed. iw 15:20 Arm band placed on. iw 15:49 Rupinder Viramontes, RN is Primary Nurse. iw 16:04 XRAY Foot RIGHT 3 View In Process Unspecified. EDMS 16:28 US Extremity Venous Unilateral Ltd In Process Unspecified. EDMS 16:58 No provider procedures requiring assistance completed. Patient did not have IV access ss during this emergency room visit. Administered Medications: No medications were administered Outcome: 16:49 Discharge ordered by . cp 16:58 Discharged to home ambulatory. ss 16:58 Condition: good 16:58 Discharge instructions given to patient, family, Instructed on discharge instructions, follow up and referral plans. medication usage, Demonstrated understanding of instructions, follow-up care, medications, Prescriptions given X 1. 16:59 Patient left the ED. ss Signatures: Dispatcher [employer] [facility] Waleska Flannery ds1 Rupinder Viramontes RN JEANNE Taryn Tripp RN RN Luis Nash PA PA cp
[2022-02-05 17:35] VITALS: BP 130/94; TEMP 98.4; O2SAT 99
== END 2022-02-05 16:59 | disposition home or self-care (01) ==
LOC: ER 15:03
DX: L08.9 Local infection of the skin and subcutaneous tissue, unspecified (principal)
CPT/HCPCS: 93971; 99283

== ENCOUNTER 2022-02-13 23:14 | Emergency (ER) | payer SELFPAY ==
--- OUTSIDE RECORDS SUMMARY | 2022-02-13 23:16 | XMS REPORT | Continuity of Care Document ---
:1980 Author Organization [facility] Address [address] [place] [address] Dr. C[address] [place] [id number] Care Team Providers Name Role Phone Eliezer [...] ID 2020-12-08 2020-12-08 Outpatient Eliezer RANDALL G [id number] [place] 09:21:00 09:21:00 0308 [facility] Results This patient has no known results.
--- NOTE | 2022-02-14 00:27 | ER ---
Nurse's Notes [facility] Name: Melia Tavares Age: 41 yrs Sex: Female : 1980 Arrival Date: 02/13/2022 Time: 23:19 Bed 5 Private MD: Diagnosis: External hemorrhoid;Anal pain Presentation: 02/14 00:11 Chief complaint: Patient states: "Earlier today I went to the bathroom and when I went vc1 to wipe there was blood. My bottom hurts really bad and there is something down there swollen.". Coronavirus screen: Vaccine status: Patient reports being unvaccinated. At this time, the client does not indicate any symptoms associated with coronavirus-19. Ebola Screen: No symptoms or risks identified at this time. Risk Assessment: Do you want to hurt yourself or someone else? Patient reports no desire to harm self or others. Onset of symptoms was February 13, 2022. 00:11 Method Of Arrival: Ambulatory vc1 00:11 Acuity: KATY 4 vc1 00:32 Initial Sepsis Screen: Does the patient meet any 2 criteria? No. Patient's initial ll3 sepsis screen is negative. Does the patient have a suspected source of infection? No. Patient's initial sepsis screen is negative. Triage Assessment: 00:13 General: Appears in no apparent distress. uncomfortable, Behavior is calm, cooperative, vc1 appropriate for age. Pain: Complains of pain in rectum Pain does not radiate. Pain currently is 10 out of 10 on a pain scale. 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 - Social history:: Smoking status: Patient denies any tobacco usage or history of. Screenin:31 Abuse screen: Denies threats or abuse. Nutritional screening: No deficits noted. ll3 Tuberculosis screening: No symptoms or risk factors identified. Fall Risk None identified. Assessment: 00:31 General: Appears uncomfortable, Behavior is calm, cooperative. Pain: Complains of pain ll3 in gluteal cleft. GI: Reports rectal bleeding. Derm: Skin is pink, warm \\T\\ dry. Vital Signs: 00:11 Weight 90.72 kg; Height 5 ft. 2 in. (157.48 cm); Pain 10/10; vc1 00:11 Body Mass Index 36.58 (90.72 kg, 157.48 cm) vc1 ED Course: 02/13 23:19 Patient arrived in ED. bp1 02/14 00:06 Chau Marcus DO is Attending Physician. ms3 00:13 Triage completed. vc1 00:15 Arm band placed on right wrist. vc1 00:25 Yariel Au MD is Referral Physician. ms3 00:31 Patient has correct armband on for positive identification. Placed in gown. Bed in low ll3 position. Call light in reach. Side rails up X 1. 00:31 No provider procedures requiring assistance completed. Patient did not have IV access ll3 during this emergency room visit. 00:43 Yahaira Graham, JEANNE is Primary Nurse. ll3 Administered Medications: No medications were administered Medication: 00:32 VIS not applicable for this client. ll3 Outcome: 00:26 Discharge ordered by . ms3 00:44 Discharged to home ambulatory. ll3 00:44 Condition: stable 00:44 Discharge instructions given to patient, Instructed on discharge instructions, follow up and referral plans. medication usage, Demonstrated understanding of instructions, follow-up care, medications, Prescriptions given X 1. 00:44 Patient left the ED. ll3 Signatures: Chau Marcus DO DO ms3 Amanda Aguilar bp1 Yahaira Graham RN RN ll3 Jaqui Latif RN RN vc1
--- NOTE | 2022-02-14 00:27 | EDPHYS ---
Physician Documentation [facility] Name: Melia Tavares Age: 41 yrs Sex: Female : 1980 Arrival Date: 02/13/2022 Time: 23:19 Bed 5 Private MD: ED Physician Chau Marcus HPI: 02/14 00:26 This 41 yrs old Female presents to ER via Ambulatory with complaints of Rectal ms3 Bleeding, Rectal Pain. 00:26 The patient presents to the emergency department with bleeding from the rectum/anus, ms3 that is mild, pain in the rectal area, that is severe. Onset: The symptoms/episode began/occurred acutely, yesterday. Context: the patient has no known special context relating to the rectal area complaint(s). Modifying factors: The symptoms are alleviated by nothing, The symptoms are aggravated by Epsom Salt bath. Associate signs and symptoms: Pertinent negatives: abdominal pain, diarrhea, vomiting. The patient has not experienced similar symptoms in the past. 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 - Social history:: Smoking status: Patient denies any tobacco usage or history of. ROS: 00:26 Constitutional: Negative for fever, and chills. Eyes: Negative for injury, pain, ms3 redness, and discharge, Neck: Negative for injury, pain, and swelling, Cardiovascular: Negative for chest pain, and palpitations. Respiratory: Negative for shortness of breath, cough, wheezing, and pleuritic chest pain, MS/Extremity: Negative for injury and deformity, Skin: Negative for injury, rash, and discoloration, Psych: Negative for depression, anxiety, suicide ideation, homicidal ideation, and hallucinations. 00:26 Abdomen/GI: Positive for rectal pain, rectal bleeding. Exam: 00:26 Constitutional: This is a well developed, well nourished patient who is awake, alert, ms3 and in no acute distress. Head/Face: Normocephalic, atraumatic. ENT: Nares patent. No nasal discharge, no septal abnormalities noted. Tympanic membranes are normal and external auditory canals are clear. Oropharynx with no redness, swelling, or masses, exudates, or evidence of obstruction, uvula midline. Mucous membranes moist. Chest/axilla: Normal chest wall appearance and motion. Nontender with no deformity. Cardiovascular: Regular rate and rhythm with a normal S1 and S2. No gallops, murmurs, or rubs. Normal PMI, no JVD. No pulse deficits. Respiratory: Lungs have equal breath sounds bilaterally, clear to auscultation and percussion. No rales, rhonchi or wheezes noted. No increased work of breathing, no retractions or nasal flaring. Skin: Warm, dry with normal turgor. Normal color with no rashes, no lesions, and no evidence of cellulitis. 00:26 Abdomen/GI: Inspection: abdomen appears normal, obese Bowel sounds: normal, Palpation: abdomen is soft and non-tender, Rectal exam: rectal tone normal, hemorrhoid(s), external, with pain, without bleeding, without thrombosis. Vital Signs: 00:11 Weight 90.72 kg; Height 5 ft. 2 in. (157.48 cm); Pain 10/10; vc1 00:11 Body Mass Index 36.58 (90.72 kg, 157.48 cm) vc1 MDM: 00:24 Patient medically screened. ms3 00:26 Differential diagnosis: hemorrhoids, fissure. Data reviewed: vital signs, nurses notes. ms3 Counseling: I had a detailed discussion with the patient and/or guardian regarding: the historical points, exam findings, and any diagnostic results supporting the discharge/admit diagnosis, lab results, the need for outpatient follow up, to return to the emergency department if symptoms worsen or persist or if there are any questions or concerns that arise at home. ED course: Discussed PE findings with patient. Patient to follow up with PMD as discussed. Patient understands/ agrees with plan. All questions answered. Return precautions given to include worsening symptoms, or any other concerns. . Administered Medications: No medications were administered Disposition Summary: 02/14/22 00:26 Discharge Ordered Location: Home ms3 Condition: Stable ms3 Diagnosis - External hemorrhoid ms3 - Anal pain ms3 Followup: ms3 - With: Yariel Au MD - When: 2 - 3 days - Reason: Recheck today's complaints Discharge Instructions: - Discharge Summary Sheet ms3 - Hemorrhoids ms3 Forms: - Medication Reconciliation Form ms3 - Thank You Letter ms3 - Antibiotic Education ms3 - Prescription Opioid Use ms3 Prescriptions: - Anusol-HC 25 mg Rectal Suppository - insert 1 suppository by RECTAL route every 12 hours As needed; 20 suppository; ms3 Refills: 0, Product Selection Permitted Signatures: Chau Marcus DO DO ms3 Jaqui Latif RN RN vc1
== END 2022-02-14 00:44 | disposition home or self-care (01) ==
LOC: ER 23:14
DX: K64.4 Residual hemorrhoidal skin tags (principal)
CPT/HCPCS: 99281

== ENCOUNTER 2022-02-15 17:22 | Emergency (ER) | payer SELFPAY ==
--- OUTSIDE RECORDS SUMMARY | 2022-02-15 17:25 | XMS REPORT | Continuity of Care Document ---
:1980 Author Organization [facility] Address [address] [place] [address] Dr. C[address] [place] [id number] Care Team Providers Name Role Phone Eliezer [...] ID 2020-12-08 2020-12-08 Outpatient Eliezer R[place] G [id number] [place] 09:21:00 09:21:00 [id number] [facility] Results This patient has no known results.
--- NOTE | 2022-02-15 18:51 | ER ---
Nurse's Notes [facility] Name: Melia Tavares Age: 41 yrs Sex: Female : 1980 Arrival Date: 02/15/2022 Time: 17:23 Bed DIS4 Private MD: Diagnosis: Presentation: 02/15 17:31 Chief complaint: Patient states: was seen here on Tuesday for rectal pain diagnosed with ll1 hemmrhoid now states pain has incresed and noticed more blood in stool. Coronavirus screen: Vaccine status: Patient reports being unvaccinated. Client denies travel out of the [place] in the last 14 days. Ebola Screen: Patient negative for fever greater than or equal to 101.5 degrees Fahrenheit, and additional compatible Ebola Virus Disease symptoms. Initial Sepsis Screen: Does the patient meet any 2 criteria?. Risk Assessment: Do you want to hurt yourself or someone else? Patient reports no desire to harm self or others. Onset of symptoms was February 12, 2022. 17:31 Method Of Arrival: Ambulatory ll1 17:31 Acuity: KATY 4 ll1 Historical: - Allergies: 17:34 No Known Allergies; ll1 - Home Meds: 17:34 Metformin Oral [Active]; Vitamin B-12 Oral daily [Active]; ll1 - PSHx: 17:34 tubal; ll1 Vital Signs: 17:31 BP 137 / 90; Pulse 100; Resp 16; Temp 98.1(O); Pulse Ox 99% on R/A; Pain 10/10; ll1 ED Course: 17:23 Patient arrived in ED. ds1 17:34 Triage completed. ll1 18:48 Luis Nash PA is PHCP. cp 18:48 Luis Mckay MD is Attending Physician. cp Administered Medications: No medications were administered Outcome: 18:51 Patient left the ED. [facility] Signatures: Luis Mckay MD MD cha Sanford, Demi ds1 Luis Nash PA PA Will Blanchard RN RN ll1
[2022-02-15 19:09] VITALS: BP 137/90; TEMP 98.1; O2SAT 99
--- NOTE | 2022-02-16 18:51 | EDPHYS ---
Physician Documentation [facility] Name: Melia Tavares Age: 41 yrs Sex: Female : 1980 Arrival Date: 02/15/2022 Time: 17:23 Bed DIS4 Private MD: FERN Physician Luis Mckay Historical: - Allergies: 02/15 17:34 No Known Allergies; ll1 - Home Meds: 17:34 Metformin Oral [Active]; Vitamin B-12 Oral daily [Active]; ll1 - PSHx: 17:34 tubal; ll1 Vital Signs: 17:31 BP 137 / 90; Pulse 100; Resp 16; Temp 98.1(O); Pulse Ox 99% on R/A; Pain 10/10; ll1 MDM: 18:48 Patient medically screened. sabrina 18:50 ED course: Patient left ED prior to evaluation by provider. cp Administered Medications: No medications were administered Disposition Summary: 02/15/22 18:51 Eloped Disposition: before being seen by provider sabrina Reason: unknown sabrina Signatures: Luis Mckay MD MD cha Page, Corey, PA PA Will Blanchard, RN RN ll1
== END 2022-02-15 18:51 | disposition left against medical advice (07) ==
LOC: ER 17:22
DX: K62.5 Hemorrhage of anus and rectum (principal); Z53.21 Procedure and treatment not carried out due to patient leaving prior to being seen by health care provider
CPT/HCPCS: 99281

== ENCOUNTER 2022-03-20 20:49 | Emergency (ER) | payer SELFPAY ==
--- OUTSIDE RECORDS SUMMARY | 2022-03-20 20:51 | XMS REPORT | Continuity of Care Document ---
:1980 Author Organization [facility] Address [address] [place] [address] Dr. [address] [place] [id number] Care Team Providers Name Role Phone Eliezer [...] ID 2020-12-08 2020-12-08 Outpatient Eliezer RANDALL G [id number] [place] 09:21:00 09:21:00 [id number] [facility] Results This patient has no known results.
[2022-03-20] MEDS ORDERED: MEPERIDINE HCL 25 MG/ML SYR ONE (21:15)
[2022-03-20 21:25] LABS: Lymphocytes % 35.7 % (15.3-44.8); MPV 9.2 fL (7.6-11.3); RBC Red Blood Cell Count 4.79 M/uL (3.86-4.86)
[2022-03-20 21:49] LABS: Albumin 4.1 g/dL (3.4-5.0); Bilirubin Direct 0.1 mg/dL (0-0.2); Bilirubin Total 0.4 mg/dL (0.2-1.0); Potassium 3.5 mmol/L (3.5-5.1); Protein, Total 8.1 g/dL (6.4-8.2); Troponin High Sensitivity 3.4 pg/mL (<58.9)
--- NOTE | 2022-03-20 22:05 | RAD REPORT ---
EXAM DESCRIPTION: RAD - Chest Single View - 03/20/2022 9:55 pm CLINICAL HISTORY: CHEST PAIN Chest pain. COMPARISON: Chest Single View dated 10/26/2021; Chest Single View dated 06/13/2021; Chest Single View dated 01/20/2021; Chest Single View dated 11/18/2019 FINDINGS: Portable technique limits examination quality. The lungs are grossly clear. The heart is normal in size. No displaced fractures. IMPRESSION: No acute intrathoracic process suspected.
--- NOTE | 2022-03-20 22:52 | ER ---
Nurse's Notes [facility] Name: Melia Tavares Age: 41 yrs Sex: Female : 1980 Arrival Date: 03/20/2022 Time: 20:51 Bed 7 Private MD: Diagnosis: Chest pain, unspecified Presentation: 03/20 21:06 Chief complaint: Patient states: Right upper chest pain that began yesterday, severe lp1 pain today radiating to back and right arm. Coronavirus screen: At this time, the client does not indicate any symptoms associated with coronavirus-19. Ebola Screen: No symptoms or risks identified at this time. Risk Assessment: Do you want to hurt yourself or someone else? Patient reports no desire to harm self or others. Onset of symptoms was March 20, 2022. 21:06 Method Of Arrival: Wheelchair lp1 21:06 Acuity: KATY 3 lp1 22:49 Initial Sepsis Screen: Does the patient meet any 2 criteria? No. Patient's initial as6 sepsis screen is negative. Does the patient have a suspected source of infection? No. Patient's initial sepsis screen is negative. 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 - Social history:: Smoking status: Patient denies any tobacco usage or history of. - Family history:: not pertinent. - Hospitalizations: : No recent hospitalization is reported. Screenin:49 Abuse screen: Denies threats or abuse. Denies injuries from another. Nutritional as6 screening: No deficits noted. Tuberculosis screening: No symptoms or risk factors identified. Fall Risk None identified. Assessment: 21:00 General: Appears uncomfortable, Behavior is cooperative, crying. Pain: Complains of as6 pain in chest Pain radiates to right scapular area Pain began gradually, 1 day ago. Neuro: Guillen Agitation-Sedation Scale (RASS): 0 - Alert and Calm Level of Consciousness is awake, alert, obeys commands, Oriented to person, place, time, situation. Cardiovascular: Reports chest pain, Rhythm is sinus rhythm. Respiratory: Respiratory effort is even, unlabored. Vital Signs: 21:06 Weight 95.71 kg (R); Height 5 ft. 2 in. (157.48 cm); Pain 10/10; lp1 22:00 BP 124 / 82; Pulse 75; Resp 21 S; Pulse Ox 97% on R/A; as6 22:54 BP 114 / 81; Pulse 82; Resp 24 S; Pulse Ox 100% on R/A; as6 23:10 BP 136 / 80; Pulse 82; Resp 18; Pulse Ox 100% on R/A; kd3 21:06 Body Mass Index 38.59 (95.71 kg, 157.48 cm) lp1 ED Course: 20:51 Patient arrived in ED. ja2 20:51 Raymundo Guzman MD is Attending Physician. rn 20:56 Kevin Nava RN is Primary Nurse. as6 21:07 Triage completed. lp1 21:07 Arm band placed on. lp1 21:15 Inserted saline lock: 20 gauge in left antecubital area, using aseptic technique. Blood as6 collected. 21:57 XRAY Chest (1 view) In Process Unspecified. EDMS 22:49 Bed in low position. Call light in reach. Side rails up X2. Client placed on continuous as6 cardiac and pulse oximetry monitoring. NIBP monitoring applied. Warm blanket given. 22:49 Patient maintains SpO2 saturation greater than 95% on room air. as6 23:11 No provider procedures requiring assistance completed. IV discontinued, intact, kd3 bleeding controlled, No redness/swelling at site. Pressure dressing applied. Administered Medications: 21:10 Drug: Demerol (meperidine) 25 mg Route: IVP; Site: left antecubital; as6 22:55 Follow up: Response: No adverse reaction; RASS: Alert and Calm (0) as6 Medication: 21:08 VIS not applicable for this client. lp1 Outcome: 22:52 Discharge ordered by . rn 23:11 Discharged to home ambulatory. kd3 23:11 Condition: stable 23:11 Discharge instructions given to patient, Instructed on discharge instructions, follow up and referral plans. Demonstrated understanding of instructions, follow-up care. 23:11 Patient left the ED. kd3 Signatures: Dispatcher [employer] EDMS Raymundo Guzman MD MD rn Celine Zavala, RN RN lp1 Kamala Christie Ashby, RN RN as6 Sherri Colon RN RN kd3
--- NOTE | 2022-03-20 22:53 | EDPHYS ---
Physician Documentation [facility] Name: Melia Tavares Age: 41 yrs Sex: Female : 1980 Arrival Date: 03/20/2022 Time: 20:51 Bed 7 Private MD: ED Physician Raymundo Guzman HPI: 03/20 21:07 This 41 yrs old Female presents to ER via Unassigned with complaints of Chest rn Pain, Back Pain. 21:07 The patient or guardian reports chest pain that is located primarily in the anterior rn chest wall, right. Onset: yesterday. The pain radiates to right back. The chest pain is described as aching. Duration: The patient or guardian reports multiple episodes, that are intermittent. Modifying factors: The symptoms are alleviated by nothing. the symptoms are aggravated by nothing. Severity of pain: At its worst the pain was moderate in the emergency department the pain is unchanged. The patient has experienced similar episodes in the past. The patient has not recently seen a physician. Pt reports started with mid to right scapular back pain yesterday, progressed and got worse today. Also having right upper outer chest pain. Both are intermittent. No famhx of early cardiac problems. Here multiple times in past for chest pain without acute findings. Does not take medication. Denies stimulants or drugs. Quit smoking 7 months ago. Not . No trauma. . 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 - Social history:: Smoking status: Patient denies any tobacco usage or history of. - Family history:: not pertinent. - Hospitalizations: : No recent hospitalization is reported. ROS: 21:07 Constitutional: Negative for fever, chills, and weight loss, Eyes: Negative for injury, rn pain, redness, and discharge, Neck: Negative for injury, pain, and swelling, Cardiovascular: Negative for palpitations, and edema, Respiratory: Negative for shortness of breath, cough, wheezing, and pleuritic chest pain, Abdomen/GI: Negative for abdominal pain, nausea, vomiting, diarrhea, and constipation, Back: Negative for injury MS/Extremity: Negative for injury and deformity, Skin: Negative for injury, rash, and discoloration, Neuro: Negative for headache, weakness, numbness, tingling, and seizure. Exam: 21:07 Constitutional: This is a well developed, well nourished patient who is awake, alert, rn tearful Head/Face: Normocephalic, atraumatic. Eyes: Periorbital areas with no swelling, redness, or edema. Neck: Trachea midline, no thyromegaly or masses palpated, and no cervical lymphadenopathy. Supple, full range of motion without nuchal rigidity, or vertebral point tenderness. No Meningismus. Cardiovascular: Regular rate and rhythm. No pulse deficits. Respiratory: No increased work of breathing, no retractions or nasal flaring. Abdomen/GI: Soft, non-tender Back: No spinal tenderness. + mid and right periscapular tenderness without mass Skin: Warm, dry MS/ Extremity: Pulses equal, no cyanosis Neuro: Awake and alert, GCS 15, oriented to person, place, time, and situation. Cranial nerves II-XII grossly intact. Motor strength 5/5 in all extremities. Sensory grossly intact. Vital Signs: 21:06 Weight 95.71 kg (R); Height 5 ft. 2 in. (157.48 cm); Pain 10/10; lp1 22:00 BP 124 / 82; Pulse 75; Resp 21 S; Pulse Ox 97% on R/A; as6 22:54 BP 114 / 81; Pulse 82; Resp 24 S; Pulse Ox 100% on R/A; as6 23:10 BP 136 / 80; Pulse 82; Resp 18; Pulse Ox 100% on R/A; kd3 21:06 Body Mass Index 38.59 (95.71 kg, 157.48 cm) lp1 MDM: 20:51 Patient medically screened. rn 22:52 Differential diagnosis: acute pericarditis, anxiety, coronary artery disease chest wall rn pain, costochondritis, gastroesophageal reflux disease (GERD), pericarditis, pleurisy, pneumonia, pneumothorax, pulmonary embolus. Data reviewed: vital signs, nurses notes, lab test result(s), EKG, radiologic studies, plain films, and as a result, I will discharge patient. Counseling: I had a detailed discussion with the patient and/or guardian regarding: the historical points, exam findings, and any diagnostic results supporting the discharge/admit diagnosis, lab results, radiology results, the need for outpatient follow up, to return to the emergency department if symptoms worsen or persist or if there are any questions or concerns that arise at home. Response to treatment: the patient's symptoms have markedly improved after treatment, and as a result, I will discharge patient. Special discussion: Based on the patient's history, exam, and Dx evaluation, there is no indication for emergent intervention or inpatient Tx. It is understood by the patient/guardian that if the Sx's persist or worsen they need to return immediately for re-evaluation. I discussed with the patient/guardian in detail that at this point there is no indication for admission to the hospital. It is understood, however, that if the symptoms persist or worsen the patient needs to return immediately for re-evaluation. 03/20 21:05 Order name: Basic Metabolic Panel; Complete Time: 21: 03/20 21:05 Order name: CBC with Diff; Complete Time: : rn 03/20 21:05 Order name: D-Dimer; Complete Time: 21:54 03/20 21:05 Order name: LFT's; Complete Time: :54 03/20 21:05 Order name: NT PRO-BNP; Complete Time: :54 03/20 21:05 Order name: Troponin HS; Complete Time: 21:54 03/20 21:05 Order name: XRAY Chest (1 view); Complete Time: 22:20 rn 03/20 21:05 Order name: EKG; Complete Time: 21: rn 03/20 21:05 Order name: Cardiac monitoring; Complete Time: : rn 03/20 21:05 Order name: EKG - Nurse/Tech; Complete Time: 21: rn 03/20 21:05 Order name: IV Saline Lock; Complete Time: : rn 03/20 22:54 Order name: Urine Dipstick-Ancillary EDMS 03/20 22:57 Order name: Urine --Ancillary (enter results) ds4 03/20 21:05 Order name: Labs collected and sent; Complete Time: 21: rn 03/20 21:05 Order name: O2 Per Protocol; Complete Time: 21: rn 03/20 21:05 Order name: O2 Sat Monitoring; Complete Time: 21:08 rn 03/20 21:05 Order name: Urine Dipstick-Ancillary (obtain specimen); Complete Time: :55 rn 03/20 21:05 Order name: Urine Test (obtain specimen); Complete Time: 22:55 rn Administered Medications: 21:10 Drug: Demerol (meperidine) 25 mg Route: IVP; Site: left antecubital; as6 22:55 Follow up: Response: No adverse reaction; RASS: Alert and Calm (0) as6 Disposition Summary: 03/20/22 22:52 Discharge Ordered Location: Home rn Problem: new rn Symptoms: have improved rn Condition: Stable rn Diagnosis - Chest pain, unspecified rn Followup: rn - With: Private Physician - When: As needed - Reason: Recheck today's complaints, Re-evaluation by your physician Discharge Instructions: - Discharge Summary Sheet rn - Nonspecific Chest Pain, Adult rn Forms: - Medication Reconciliation Form rn - Thank You Letter rn - Antibiotic business analytics intern - Prescription Opioid Use rn Signatures: Dispatcher [employer] Raymundo Lambert MD MD rn Pena, Laura RN RN lp1 Kevin Nava, RN RN as6
[2022-03-20 22:54] LABS: Urine Blood 3+ (Negative); Urine Glucose Negative (Negative); Urine Protein 1+ (Negative); Urine pH 5.5 (5.0-7.0)
[2022-03-21 00:32] VITALS: O2SAT 100
[2022-03-21 00:34] VITALS: BP 136/80
--- NOTE | 2022-03-22 11:53 | EKG ---
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
== END 2022-03-20 23:11 | disposition home or self-care (01) ==
LOC: ER 20:49
DX: R07.9 Chest pain, unspecified (principal)
CPT/HCPCS: 36415; 71045; 80048; 80076; 81003; 81025; 83880; 84484; 85025; 85379; 93005; 96374; 99285; J2175

== ENCOUNTER 2022-09-28 16:22 | Emergency (ER) | payer SELFPAY ==
--- OUTSIDE RECORDS SUMMARY | 2022-09-28 16:26 | XMS REPORT | Continuity of Care Document ---
:1980 Author Organization [facility] t Address [address] [place] [address] Care Team Providers Name Role Phone Eliezer [...] Department ID 2020-12-08 2020-12-08 Outpatient Eliezer RANDALL [facility] [id number] [place] 09:21:00 09:21:00 0308 [facility] Results This patient has no known results.
--- NOTE | 2022-09-28 17:53 | RAD REPORT ---
EXAM DESCRIPTION: RAD - Chest Single View - 09/28/2022 5:36 pm CLINICAL HISTORY: CHEST PAIN COMPARISON: Chest Single View dated 03/20/2022; Chest Single View dated 10/26/2021; Chest Single View dated 06/13/2021; Chest Single View dated 01/20/2021 FINDINGS: Lines: None. Lungs: No evidence of edema or pneumonia. Pleural: No significant pleural effusions or pneumothorax. Cardiac: The heart size is within normal limits. Mediastinum: Within normal limits. Bones: No acute fractures. Other: None IMPRESSION: No acute cardiopulmonary disease.
[2022-09-28] MEDS ORDERED: NA CHLORIDE 0.9% 1,000 ML ONE (18:29)
[2022-09-28] MEDS ORDERED: ASPIRIN 81 MG CHEWABLE TABLET ONE (18:29)
[2022-09-28 18:40] LABS: Absolute Lymphocytes (CBC) 3.5 K/uL (0.7-4.9); Hematocrit 39.1 % (36.0-45.0); Lymphocytes % 25.1 % (15.3-44.8); MCV 89.9 fL (80-100); RBC Red Blood Cell Count 4.35 M/uL (3.86-4.86)
[2022-09-28 18:48] LABS: Urine Blood Negative (Negative); Urine Glucose Negative (Negative); Urine Protein Negative (Negative); Urine Specific Gravity >=1.030 (1.005-1.030)
[2022-09-28 18:56] LABS: SARS-CoV-2 Antigen Rapid Res Negative (Negative)
[2022-09-28 19:04] LABS: ALT/SGPT 32 U/L (13-56); AST/SGOT 11 U/L (15-37); Albumin 3.9 g/dL (3.4-5.0); Alkaline Phosphatase 55 U/L (45-117); BUN Blood Urea Nitrogen 11 mg/dL (7-18); Bicarbonate 25 mmol/L (21-32); Bilirubin Direct 0.1 mg/dL (0-0.2); Bilirubin Total 0.3 mg/dL (0.2-1.0); Glomerular Filtration Rate 83 ml/min (=/>90); Glucose Level 131 mg/dL (74-106); Lipase 144 U/L (73-393); NT PRO-BNP 10 pg/mL (<125); Potassium 3.4 mmol/L (3.5-5.1); Protein, Total 7.8 g/dL (6.4-8.2); Sodium Level 138 mmol/L (136-145)
[2022-09-28 19:05] LABS: Troponin High Sensitivity < 3.0 pg/mL (<58.9)
[2022-09-28] MEDS ORDERED: CEFTRIAXONE 1000 MG/VIAL ONE (19:05)
[2022-09-28] MEDS ORDERED: ACETAMINOPHEN 325 MG TABLET ONE (19:06)
[2022-09-28] MEDS ORDERED: AZITHROMYCIN 250 MG TAB ONE (19:06)
[2022-09-28 19:08] LABS: Protime INR 1.13
[2022-09-28] MEDS ORDERED: POTASSIUM 25 MEQ EFFERV TAB ONE (19:40)
--- NOTE | 2022-09-28 20:56 | EDPHYS ---
Physician Documentation [facility] Name: Melia Tavares Age: 42 yrs Sex: Female : 1980 Arrival Date: 09/28/2022 Time: 16:23 Bed 14 Private MD: ED Physician Luis Mckay HPI: 09/28 17:52 This 42 yrs old Female presents to ER via Ambulatory with complaints of Chest sabrina Pressure. 17:52 The patient or guardian reports chest pain that is located primarily in the anterior sabrina chest wall, left. Onset: today. The pain does not radiate. Associated signs and symptoms: Pertinent positives: cough. The chest pain is described as a pressure. Duration: The patient or guardian reports a single episode, that is still ongoing. Modifying factors: The symptoms are alleviated by nothing. the symptoms are aggravated by nothing. Severity of pain: At its worst the pain was moderate in the emergency department the pain is unchanged. The patient has not experienced similar symptoms in the past. 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 - Social history:: Smoking status: Reported history of juuling and/or vaping. Patient denies any tobacco usage or history of. - Family history:: not pertinent. ROS: 17:53 Constitutional: Negative for fever, chills, and weight loss, Eyes: Negative for injury, sabrina pain, redness, and discharge, ENT: Negative for injury, pain, and discharge, Neck: Negative for injury, pain, and swelling, Abdomen/GI: Negative for abdominal pain, nausea, vomiting, diarrhea, and constipation, : Negative for injury, bleeding, discharge, and swelling, MS/Extremity: Negative for injury and deformity, Skin: Negative for injury, rash, and discoloration, Neuro: Negative for headache, weakness, numbness, tingling, and seizure, Psych: Negative for depression, anxiety, suicide ideation, homicidal ideation, and hallucinations, Allergy/Immunology: Negative for hives, rash, and allergies, Endocrine: Negative for neck swelling, polydipsia, polyuria, polyphagia, and marked weight changes, Hematologic/Lymphatic: Negative for swollen nodes, abnormal bleeding, and unusual bruising. 17:53 Cardiovascular: Positive for chest pain, of the left clavicle and anterior aspect of left upper chest. 17:53 Respiratory: Positive for cough. 17:53 : Negative for injury or acute deformity. Exam: 17:53 Constitutional: This is a well developed, well nourished patient who is awake, alert, sabrina and in no acute distress. Head/Face: Normocephalic, atraumatic. Eyes: Pupils equal round and reactive to light, extra-ocular motions intact. Lids and lashes normal. Conjunctiva and sclera are non-icteric and not injected. Cornea within normal limits. Periorbital areas with no swelling, redness, or edema. ENT: Nares patent. No nasal discharge, no septal abnormalities noted. Tympanic membranes are normal and external auditory canals are clear. Oropharynx with no redness, swelling, or masses, exudates, or evidence of obstruction, uvula midline. Mucous membranes moist. Neck: Trachea midline, no thyromegaly or masses palpated, and no cervical lymphadenopathy. Supple, full range of motion without nuchal rigidity, or vertebral point tenderness. No Meningismus. Chest/axilla: Normal chest wall appearance and motion. Nontender with no deformity. No lesions are appreciated. Cardiovascular: Regular rate and rhythm with a normal S1 and S2. No gallops, murmurs, or rubs. Normal PMI, no JVD. No pulse deficits. Respiratory: Lungs have equal breath sounds bilaterally, clear to auscultation and percussion. No rales, rhonchi or wheezes noted. No increased work of breathing, no retractions or nasal flaring. Abdomen/GI: Soft, non-tender, with normal bowel sounds. No distension or tympany. No guarding or rebound. No evidence of tenderness throughout. Back: No spinal tenderness. No costovertebral tenderness. Full range of motion. Skin: Warm, dry with normal turgor. Normal color with no rashes, no lesions, and no evidence of cellulitis. MS/ Extremity: Pulses equal, no cyanosis. Neurovascular intact. Full, normal range of motion. Neuro: Awake and alert, GCS 15, oriented to person, place, time, and situation. Cranial nerves II-XII grossly intact. Motor strength 5/5 in all extremities. Sensory grossly intact. Cerebellar exam normal. Normal gait. Psych: Awake, alert, with orientation to person, place and time. Behavior, mood, and affect are within normal limits. 17:53 Musculoskeletal/extremity: Extremities: all appear grossly normal, with no appreciated pain with palpation, ROM: no acute changes, intact in all extremities, Circulation is intact in all extremities. Sensation intact. Compartment Syndrome exam of affected extremity: is normal. DVT Exam: No signs of deep vein thrombosis. no pain, no swelling, no tenderness, negative Homans' sign noted on exam, no appreciated bluish discoloration, no erythema, no increased warmth. Vital Signs: 16:35 BP 140 / 87; Pulse 83; Resp 17; Temp 99.4; Pulse Ox 100% ; Weight 88 kg; Height 5 ft. 2 ll1 in. (157.48 cm); Pain 9/10; 19:30 BP 130 / 87; Pulse 86; Resp 19; Temp 98.2; Pulse Ox 99% on R/A; Pain 4/10; pf1 20:30 BP 108 / 79; Pulse 78; Resp 20; Pulse Ox 99% on R/A; Pain 2/10; pf1 21:05 BP 111 / 74; Pulse 82; Resp 18; Temp 98; Pulse Ox 99% ; Pain 2/10; pf1 16:35 Body Mass Index 35.48 (88.00 kg, 157.48 cm) ll1 MDM: 17:55 Data reviewed: radiologic studies, plain films. [facility] 18:20 Patient medically screened. [facility] 09/28 16:26 Order name: Basic Metabolic Panel; Complete Time: 19:08 [facility] 09/28 16:26 Order name: CBC with Diff; Complete Time: 18:46 [facility] 09/28 16:26 Order name: LFT's; Complete Time: 19:08 [facility] 09/28 16:26 Order name: Magnesium; Complete Time: 19:08 [facility] 09/28 16:26 Order name: NT PRO-BNP; Complete Time: 19:08 [facility] 09/28 16:26 Order name: PT-INR [facility] 09/28 16:26 Order name: Troponin HS; Complete Time: 19:08 [facility] 09/28 16:26 Order name: Lipase; Complete Time: 19:08 [facility] 09/28 16:26 Order name: SARS RAPID; Complete Time: 19:08 [facility] 09/28 17:13 Order name: Chest Single View; Complete Time: 17:55 [facility] 09/28 17:55 Order name: D-Dimer; Complete Time: 18:46 [facility] 09/28 18:48 Order name: Urine Dipstick-Ancillary; Complete Time: 18:49 [facility] 09/28 18:50 Order name: Troponin High Sensitivity: 8pm; Complete Time: 20:54 [facility] 09/28 16:26 Order name: EKG; Complete Time: 16:27 [facility] 09/28 16:26 Order name: Cardiac monitoring; Complete Time: 18:35 [facility] 09/28 16:26 Order name: EKG - Nurse/Tech; Complete Time: 16:44 [facility] 09/28 16:26 Order name: IV Saline Lock; Complete Time: 18:36 [facility] 09/28 16:26 Order name: Labs collected and sent; Complete Time: 18:36 [facility] 09/28 16:26 Order name: O2 Per Protocol; Complete Time: 18:32 [facility] 09/28 16:26 Order name: O2 Sat Monitoring; Complete Time: 18:32 [facility] 09/28 16:26 Order name: Urine Dipstick-Ancillary (obtain specimen); Complete Time: 18:52 [facility] Administered Medications: 18:32 Drug: NS 0.9% 1000 ml Route: IV; Rate: 125 ml/hr; Site: left antecubital; kr3 19:40 Follow up: Response: No adverse reaction; Marked relief of symptoms pf1 21:05 Follow up: IV Status: Completed infusion; IV Intake: 300ml pf1 18:32 Drug: Aspirin Chewable Tablet 162 mg Route: PO; kr3 19:40 Follow up: Response: Pain is decreased; RASS: Alert and Calm (0) pf1 19:40 Drug: Zithromax (azithromycin) 500 mg Route: PO; pf1 20:40 Follow up: Response: No adverse reaction; Marked relief of symptoms pf1 19:40 Drug: Rocephin (cefTRIAXone) 1 grams Route: IV; Rate: per protocol; Site: left pf1 antecubital; 19:42 Follow up: IV Status: Completed infusion; IV Intake: 10ml pf1 20:40 Follow up: Response: No adverse reaction; Marked relief of symptoms pf1 19:40 Drug: Tylenol 650 mg Route: PO; pf1 20:40 Follow up: Response: No adverse reaction; Marked relief of symptoms; Pain is decreased; pf1 RASS: Alert and Calm (0) 19:40 Drug: Potassium Effervescent Tablet 25 mEq Route: PO; pf1 20:40 Follow up: Response: No adverse reaction pf1 Disposition Summary: 09/28/22 20:55 Discharge Ordered Location: Home jmm Problem: new jmm Symptoms: have improved jmm Condition: Stable jmm Diagnosis - Chest pain, unspecified jmm - Cough jmm - Fever, unspecified jmm - Hypokalemia jmm Followup: sabrina - With: Private Physician - When: 2 - 3 days - Reason: Recheck today's complaints, Continuance of care, Re-evaluation by your physician Followup: sabrina - With: - When: 2 - 3 days - Reason: Recheck today's complaints, Continuance of care, Re-evaluation by your physician Discharge Instructions: - Discharge Summary Sheet sabrina - Nonspecific Chest Pain, Adult sabrina - Fever, Adult sabrina - Nonspecific Chest Pain, Adult, [id number] sabrina - Aspirin and Your Heart sabrina - Potassium Content of Foods sabrina - Cough, Adult sabrina - Hypokalemia [facility] Forms: - Medication Reconciliation Form [facility] - Thank You Letter jm - Antibiotic Education jm - Prescription Opioid Use [facility] Prescriptions: - Ibuprofen 600 mg Oral Tablet - take 1 tablet by ORAL route every 8 hours As needed take with food; 30 tablet; jmm Refills: 0, Product Selection Permitted - Zithromax Z-Mynor 250 mg Oral Tablet - take 1 tablet by ORAL route as directed for 5 days Day 1 - take two (2) tablets [facility] one time. Day 2, 3, 4 , 5 take one (1) tablet once daily.; 6 tablet; Refills: 0, Product Selection Permitted Signatures: Dispatcher [employer] EDMS Luis Mckay MD MD cha Mickail, Joel, PA PA jmm Will Murrell RN RN ll1 Narcisa Walsh RN RN kr3 Genevieve palomares RN RN pf1 Corrections: (The following items were deleted from the chart) 17:10 16:26 Chest Single View+RAD.RAD.BRZ ordered. EDMS EDMS
--- NOTE | 2022-09-28 20:56 | ER ---
Nurse's Notes [facility] Name: Melia Tavares Age: 42 yrs Sex: Female : 1980 Arrival Date: 09/28/2022 Time: 16:23 Bed 14 Private MD: Diagnosis: Chest pain, unspecified;Cough;Fever, unspecified;Hypokalemia Presentation: 09/28 16:35 Chief complaint: Patient states: L upper chest pain started after lunch. Slight cough. ll1 Coronavirus screen: Vaccine status: Patient reports being unvaccinated. Client denies travel out of the [place] in the last 14 days. cough unrelated to allergies, Client presents with at least one sign or symptom that may indicate coronavirus-19. Standard/surgical mask placed on the client. Ebola Screen: Patient denies travel to an Ebola-affected area in the 21 days before illness onset. Initial Sepsis Screen: Does the patient meet any 2 criteria? No. Patient's initial sepsis screen is negative. Does the patient have a suspected source of infection? No. Patient's initial sepsis screen is negative. Risk Assessment: Do you want to hurt yourself or someone else? Patient reports no desire to harm self or others. Onset of symptoms was September 28, 2022. 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 - Social history:: Smoking status: Reported history of juuling and/or vaping. Patient denies any tobacco usage or history of. - Family history:: not pertinent. Screenin:42 [facility] ED Fall Risk Assessment (Adult) History of falling in the last 3 months, pf1 including since admission No falls in past 3 months (0 pts) Confusion or Disorientation No (0 pts) Intoxicated or Sedated No (0 pts) Impaired Gait No (0 pts) Mobility Assist Device Used No (0 pt) Altered Elimination No (0 pt) Score/Fall Risk Level 0 - 2 = Low Risk Oriented to surroundings, Maintained a safe environment, Educated pt \T\ family on fall prevention, incl call for assistance when getting out of bed, Assessed \T\ reinforced patient's understanding of fall precautions, Provided non-skid footwear, Hourly rounding (assess needs \T\ fall precautionary measures) done, Used ambulatory aids as needed (educated on \T\ assisted with), Used gait belt as appropriate. Abuse screen: Denies threats or abuse. Nutritional screening: No deficits noted. Tuberculosis screening: No symptoms or risk factors identified. Assessment: 18:03 General: Appears in no apparent distress. comfortable, Behavior is calm, cooperative, kr3 appropriate for age. 19:00 General: Appears in no apparent distress. comfortable, well groomed, well developed, pf1 Behavior is calm, cooperative, appropriate for age, quiet. 19:00 Pain: Complains of pain in anterior aspect of left upper chest Pain currently is 4 out pf1 of 10 on a pain scale. Pain began 1500 today. Neuro: No deficits noted. Level of Consciousness is awake, alert, obeys commands, Oriented to person, place, time, situation. Cardiovascular: Chest pain. Respiratory: Airway is patent Respiratory effort is even, unlabored, labored, Respiratory pattern is regular, symmetrical, Breath sounds are clear bilaterally. GI: No deficits noted. No signs and/or symptoms were reported involving the gastrointestinal system. Abdomen is round non-distended, Bowel sounds present X 4 quads. : No deficits noted. No signs and/or symptoms were reported regarding the genitourinary system. EENT: No deficits noted. No signs and/or symptoms were reported regarding the EENT system. Derm: No deficits noted. No signs and/or symptoms reported regarding the dermatologic system. Musculoskeletal: No deficits noted. No signs and/or symptoms reported regarding the musculoskeletal system. 19:30 Pain: Pain does not radiate. pf1 20:37 Reassessment: Patient appears in no apparent distress at this time. Patient and/or pf1 family updated on plan of care and expected duration. Pain level reassessed. Patient is alert, oriented x 3, equal unlabored respirations, skin warm/dry/pink. Patient states feeling better. Patient states symptoms have improved. Patient C/O left side chest pain of 2. Patient connected to cardiac monitoring, call light at , lights dimmed. Vital Signs: 16:35 BP 140 / 87; Pulse 83; Resp 17; Temp 99.4; Pulse Ox 100% ; Weight 88 kg; Height 5 ft. 2 ll1 in. (157.48 cm); Pain 9/10; 19:30 BP 130 / 87; Pulse 86; Resp 19; Temp 98.2; Pulse Ox 99% on R/A; Pain 4/10; pf1 20:30 BP 108 / 79; Pulse 78; Resp 20; Pulse Ox 99% on R/A; Pain 2/10; pf1 21:05 BP 111 / 74; Pulse 82; Resp 18; Temp 98; Pulse Ox 99% ; Pain 2/10; pf1 16:35 Body Mass Index 35.48 (88.00 kg, 157.48 cm) ll1 ED Course: 16:23 Patient arrived in ED. as 16:24 Luis Mckay MD is Attending Physician. [facility] 16:36 Triage completed. ll1 17:38 Chest Single View In Process Unspecified. EDMS 18:03 Narcisa Walsh RN is Primary Nurse. kr3 18:36 Inserted saline lock: 20 gauge in left antecubital area, using aseptic technique. Blood bc6 collected. 18:37 SARS RAPID Sent. kr3 19:13 Zackery Whalen PA is PHCP. jmm 19:30 Patient maintains SpO2 saturation greater than 95% on room air. pf1 19:30 Patient has correct armband on for positive identification. Placed in gown. Bed in low pf1 position. Call light in reach. Client placed on continuous cardiac and pulse oximetry monitoring. NIBP monitoring applied. quality assurance monitor on. 19:30 Arm band placed on left wrist. pf1 20:22 Troponin High Sensitivity: 8pm Sent. pf1 20:55 Faustino Hatfield MD is Referral Physician. jmm 21:06 No provider procedures requiring assistance completed. IV discontinued, intact, pf1 bleeding controlled, No redness/swelling at site. Pressure dressing applied. Administered Medications: 18:32 Drug: NS 0.9% 1000 ml Route: IV; Rate: 125 ml/hr; Site: left antecubital; kr3 19:40 Follow up: Response: No adverse reaction; Marked relief of symptoms pf1 21:05 Follow up: IV Status: Completed infusion; IV Intake: 300ml pf1 18:32 Drug: Aspirin Chewable Tablet 162 mg Route: PO; kr3 19:40 Follow up: Response: Pain is decreased; RASS: Alert and Calm (0) pf1 19:40 Drug: Zithromax (azithromycin) 500 mg Route: PO; pf1 20:40 Follow up: Response: No adverse reaction; Marked relief of symptoms pf1 19:40 Drug: Rocephin (cefTRIAXone) 1 grams Route: IV; Rate: per protocol; Site: left pf1 antecubital; 19:42 Follow up: IV Status: Completed infusion; IV Intake: 10ml pf1 20:40 Follow up: Response: No adverse reaction; Marked relief of symptoms pf1 19:40 Drug: Tylenol 650 mg Route: PO; pf1 20:40 Follow up: Response: No adverse reaction; Marked relief of symptoms; Pain is decreased; pf1 RASS: Alert and Calm (0) 19:40 Drug: Potassium Effervescent Tablet 25 mEq Route: PO; pf1 20:40 Follow up: Response: No adverse reaction pf1 Medication: 21:09 VIS not applicable for this client. pf1 Intake: 19:42 IV: 10ml; Total: 10ml. pf1 21:05 IV: 300ml; Total: 310ml. pf1 Outcome: 20:55 Discharge ordered by . chris 21:07 Discharged to home ambulatory. pf1 21:07 Condition: improved 21:07 Discharge instructions given to patient, Instructed on discharge instructions, follow up and referral plans. medication usage, Demonstrated understanding of instructions, follow-up care, medications, Prescriptions given X 2. 21:09 Patient left the ED. pf1 Signatures: Dispatcher [employer] EDLuis Gordon MD MD cha Mickail, Joel, PA PA jmm Martinez, Amelia as Lewis, Lynsay RN RN ll1 Narcisa Walsh RN RN kr3 Genevieve palomares RN RN pf1 Moni Burns bc6
[2022-09-28 21:15] VITALS: O2SAT 99
[2022-09-28 21:17] VITALS: BP 111/74; TEMP 98
--- NOTE | 2022-09-30 17:50 | EKG ---
Test Date: 2022-09-28 Test Time: 16:41:46 Weather Clerk: LML MEASUREMENT RESULTS: Intervals: Rate: 89 [place]: 138 QRSD: 82 QT: 346 QTc: 420 [place]: P: 46 [place]: 138 QRS: -23 T: 57 INTERPRETIVE STATEMENTS: Normal sinus rhythm Low voltage QRS Cannot rule out Anterior infarct, age undetermined Abnormal ECG Compared to ECG 03/20/2022 21:03:15 Low QRS voltage now present Myocardial infarct finding still present Electronically Signed On 09-30-22 17:45:48 CLINIC LICENSED PRACTICAL NURSE by Ras Metcalf
== END 2022-09-28 21:09 | disposition home or self-care (01) ==
LOC: ER 16:22
DX: R07.89 Other chest pain (principal); R05.9 Cough, unspecified; R50.9 Fever, unspecified; E87.6 Hypokalemia; Z20.822 Contact with and (suspected) exposure to COVID-19
CPT/HCPCS: 36415; 71045; 80048; 80076; 81003; 83690; 83735; 83880; 84484; 85025; 85379; 85610; 87811; 93005; 96361; 96374; 99285; J7030; Q0144

== ENCOUNTER 2024-08-26 12:52 | Emergency (ER) | payer BC, SELFPAY ==
--- OUTSIDE RECORDS SUMMARY | 2024-08-26 12:54 | XMS REPORT | Continuity of Care Document ---
Author Name Unknown Address [address] [place] [address] [place] [address] [facility] Address [address] [place] [address] [address] [place] [address] Care Team Providers Care Parts Driver Name Role Phone Eliezer Attending Clinician Unavailable Eliezer Admitting Clinician Unavailable Encounters Start Date/Time End Date/Time Encounter Type Admission Type Attending Clinicians Care Facility Care Department Encounter ID Source 2020-12-08 09:21:00 2020-12-08 09:21:00 Outpatient Eliezer [facility] [id number] [facility]
--- NOTE | 2024-08-26 14:33 | RAD REPORT ---
EXAMINATION: XR LEFT TIBIA AND FIBULA CLINICAL INDICATION: . PAIN TECHNIQUE:Two view radiograph of the left tibia and fibula were obtained. COMPARISON: No prior exam. FINDINGS: No bone or joint abnormality detected. Small posterior calcaneal spur.
--- NOTE | 2024-08-26 14:40 | ER ---
Nurse's Notes [facility] Name: Melia Tavares Age: 44 yrs Sex: Female : 1980 Arrival Date: 08/26/2024 Time: 12:52 Bed DX3 Private MD: Diagnosis: Pain in left lower leg;Likely Nerve Related Pain Presentation: 08/26 13:23 Chief complaint: Patient states: [place] to the lateral side of left lower leg onset a cm10 few weeks ago. pain radiates down to foot. Pt denies any trauma or injury. Pt states that standing still makes the pain worse. Coronavirus screen: Client denies travel out of the [place] in the last 14 days. Ebola Screen: Patient denies travel to an Ebola-affected area in the 21 days before illness onset. No symptoms or risks identified at this time. Initial Sepsis Screen: Does the patient meet any 2 criteria? No. Patient's initial sepsis screen is negative. Does the patient have a suspected source of infection? No. Patient's initial sepsis screen is negative. Risk Assessment: Do you want to hurt yourself or someone else? Patient reports no desire to harm self or others. Onset of symptoms was August 26, 2024. 13:23 Method Of Arrival: Ambulatory cm10 13:23 Acuity: KATY 4 cm10 Triage Assessment: 13:26 General: Appears in no apparent distress. comfortable, Behavior is calm, cooperative. cm10 Pain: Complains of pain in lateral aspect of left calf Pain radiates to left foot Pain currently is 0 out of 10 on a pain scale. at worst was 10 out of 10 on a pain scale. Pain began Weeks ago Alleviated by exercise, Aggravated by Standing still. Neuro: No deficits noted. Level of Consciousness is awake, alert, obeys commands, Oriented to person, place, time, situation, Appropriate for age. Respiratory: No deficits noted. Airway is patent Respiratory effort is even, unlabored, Respiratory pattern is regular, symmetrical. Derm: No deficits noted. Skin is healthy with good turgor. Musculoskeletal: No deficits noted. Range of motion: intact in all extremities, Reports pain in lateral aspect of left calf. 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 - Infectious Disease History:: Denies. - Social history:: Smoking status: Patient denies any tobacco usage or history of. Screenin:27 [facility] ED Fall Risk Assessment (Adult) History of falling in the last 3 months, cm10 including since admission No falls in past 3 months (0 pts) Confusion or Disorientation No (0 pts) Intoxicated or Sedated No (0 pts) Impaired Gait No (0 pts) Mobility Assist Device Used No (0 pt) Altered Elimination No (0 pt) Score/Fall Risk Level 0 - 2 = Low Risk Oriented to surroundings, Maintained a safe environment, Hourly rounding (assess needs \T\ fall precautionary measures) done. Abuse screen: Denies threats or abuse. Denies injuries from another. Nutritional screening: No deficits noted. Tuberculosis screening: No symptoms or risk factors identified. Assessment: 14:40 Reassessment: Patient appears in no apparent distress at this time. No changes from cm10 previously documented assessment. Patient and/or family updated on plan of care and expected duration. Pain level reassessed. Vital Signs: 13:23 BP 110 / 82; Pulse 84; Resp 16; Temp 98.9; Pulse Ox 98% ; Weight 85.28 kg; Height 5 ft. cm10 3 in. ; Pain 0/10; 13:23 Body Mass Index 33.30 (85.28 kg, 160.02 cm) cm10 13:23 Pain Scale: Adult cm10 ED Course: 12:54 Patient arrived in ED. ra3 12:55 Dimas Hernández MD is Attending Physician. ec2 13:25 Triage completed. cm10 13:26 Arm band placed on right wrist. Patient placed in waiting room. cm10 13:27 Patient has correct armband on for positive identification. Provided Education on: ER cm10 process and procedures.. Cardiac monitoring not applicable on this patient. 14:28 Tib Fib Left XRAY In Process Unspecified. EDMS 14:40 Abraham Pack MD is Referral Physician. ec2 14:40 No provider procedures requiring assistance completed. Patient did not have IV access cm10 during this emergency room visit. Administered Medications: No medications were administered Medication: 13:27 VIS not applicable for this client. cm10 Outcome: 14:40 Discharge ordered by . ec2 14:40 Discharged to home ambulatory, with family, [facility] 14:40 Condition: good 14:40 Discharge instructions given to patient, Instructed on discharge instructions, follow up and referral plans. medication usage, Demonstrated understanding of instructions, follow-up care, medications, Prescriptions given X 3, 14:43 Patient left the ED. Signatures: Dispatcher [employer] EDPR Whit Coffey RN RN Anabell Hensley RN RN cm10 Dimas Hernández MD MD ec2 Anna Clayton ra3
--- NOTE | 2024-08-26 14:40 | EDPHYS ---
Physician Documentation [facility] Name: Melia Tavares Age: 44 yrs Sex: Female : 1980 Arrival Date: 08/26/2024 Time: 12:52 Bed DX3 Private MD: ED Physician Dimas Hernández HPI: 08/26 13:34 This 44 yrs old Female presents to ER via Ambulatory with complaints of Leg ec2 Pain - Left. 13:42 Patient arrives today for evaluation of left leg pain. Complaining of left lateral leg ec2 pain going from the tib-fib on the lateral component to the dorsum of the foot. Patient reports no trauma falls or injuries. Denies any back pain.. 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 - Infectious Disease History:: Denies. - Social history:: Smoking status: Patient denies any tobacco usage or history of. ROS: 13:42 Constitutional: as per hpi ec2 Exam: 13:42 Constitutional: GEN: NAD Head: atraumatic Eyes: EOMI Ears: External ears are ec2 normal. CV: regular rate LUNGS: no respiratory distress ABD: non-distended SKIN: no evidence of rashes MSK: Point TTP to the left lateral proximal tib-fib over the head of the fibula. Intact distal neurovascular status. No significant swelling appreciated. Vital Signs: 13:23 BP 110 / 82; Pulse 84; Resp 16; Temp 98.9; Pulse Ox 98% ; Weight 85.28 kg; Height 5 ft. cm10 3 in. ; Pain 0/10; 13:23 Body Mass Index 33.30 (85.28 kg, 160.02 cm) cm10 13:23 Pain Scale: Adult cm10 MDM: 13:25 Medical Screening Exam initiated ec2 13:42 Data reviewed: vital signs, nurses notes. ED course: Patient arrives today for left leg ec2 pain. Examination is remarkable for left leg findings as above. Will obtain radiograph. Suspect nerve related pain. Doubt DVT. Doubt cellulitis given appearance.. 14:39 ED course: X-ray shows no bony fracture. Will discharge home have the patient follow-up ec2 with orthopedics. Suspect common peroneal neuropathy. Return precautions given.. 08/26 13:34 Order name: Tib Fib Left XRAY; Complete Time: 14:39 cm10 Administered Medications: No medications were administered Disposition Summary: 08/26/24 14:40 Discharge Ordered Notes: Location: Home ec2 Condition: Stable ec2 Diagnosis - Pain in left lower leg ec2 - Likely Nerve Related Pain ec2 Followup: ec2 - With: Abraham Pack MD - When: - Reason: Recheck today's complaints Discharge Instructions: - Discharge Summary Sheet ec2 - Common Peroneal Nerve Entrapment ec2 Forms: - Medication Reconciliation Form ec2 - Antibiotic Education ec2 - Prescription Opioid Use ec2 - Patient Portal Instructions ec2 - Leadership Thank You Letter ec2 Prescriptions: - gabapentin 600 mg Oral tablet - take 1 tablet ORAL route 3 times per day; 30 tablet; Refills: 0, Product ec2 Selection Permitted - Prednisone 20 mg Oral Tablet - take 2 tablets ORAL route once daily for 5 days; 10 tablet; Refills: 0, Product ec2 Selection Permitted - methocarbamol 500 mg Oral tablet - take 1 tablet ORAL route 4 times per day; 30 tablet; Refills: 0, Product ec2 Selection Permitted Signatures: Dispatcher [employer] Anabell Barber RN RN cm10 Dimas Hernández MD MD ec2 Corrections: (The following items were deleted from the chart) 13:34 13:34 Tib Fib Left+RAD.RAD.BRZ ordered. ZECHARIAH APPLE
[2024-08-26 17:19] VITALS: BP 110/82; TEMP 98.9; O2SAT 98
== END 2024-08-26 14:43 | disposition home or self-care (01) ==
LOC: ER 12:52
DX: M79.662 Pain in left lower leg (principal); E11.9 Type 2 diabetes mellitus without complications
CPT/HCPCS: 99283

== ENCOUNTER 2024-09-25 10:58 | Emergency (ER) | payer BC, OTHER ==
--- OUTSIDE RECORDS SUMMARY | 2024-09-25 11:01 | XMS REPORT | Continuity of Care Document ---
Author Name Unknown Address [address] [place] [address] [place] [address] thconnect Address [address] [place] [address] [address] [place] [address] Care Team Providers Care Soap Boiler Name Role Phone Eliezer Attending Clinician Unavailable Eliezer Admitting Clinician Unavailable Encounters Start Date/Time End Date/Time Encounter Type Admission Type Attending Clinicians Care Facility Care Department Encounter ID Source 2020-12-08 09:21:00 2020-12-08 09:21:00 Outpatient Eliezer [facility] [id number] [facility]
--- NOTE | 2024-09-25 12:08 | RAD REPORT ---
EXAM: CT brain without contrast HISTORY: PAIN COMPARISON: None TECHNIQUE: Multiple contiguous axial images were obtained and a CT of the brain without contrast. Sag ittal and coronal reformats were performed. One or more of the following dose reduction techniques were used: Automated exposure control, adjust ment of the mA and/or kV according to patient size, and/or iterative reconstruction. FINDINGS: No evidence of hydrocephalus, intracranial hemorrhage, or extra-axial fluid collection. The brain is normal in morphology. No evidence of midline shift or areas of brain edema. The calvarium is intact. The visualized paranasal sinuses and mastoid air cells are essentially clear . IMPRESSION: No evidence of acute intracranial abnormality. EXAM: CT of the cervical spine without contrast HISTORY: Neck pain, injury PAIN TECHNIQUE: Multiple contiguous axial images were obtained in a CT of the cervical spine without contr ast. Sagittal and coronal reformats were performed. FINDINGS: The vertebral bodies demonstrate normal height and alignment. No evidence of acute fracture or subluxation.. No degenerative changes are present. No prevertebral soft tissue swelling is seen. The posterior facets are well aligned. Normal alignment of the skull base with the cervical spine is seen. The lung apices are unremarkable. IMPRESSION: No evidence of acute osseous abnormality of the cervical spine.
--- NOTE | 2024-09-25 12:11 | RAD REPORT ---
EXAM: CT CHEST, ABDOMEN AND PELVIS WITHOUT CONTRAST CLINICAL INDICATION: [facility] TECHNIQUE: CT chest, abdomen and pelvis was performed without contrast, as per department protocol. A xial, sagittal and coronal reconstructions were obtained. One or more of the following dose reduction techniques were used: Automated exposure control, adjustment of the mA and/or kV according to patient size, and/or iterative reconstruction. Unless otherwise specified, incidental findings do not require dedicated imaging follow-up. Examination is limited by the lack of intravenous contrast material. COMPARISON: No prior exam. FINDINGS: LUNGS: No evidence of airspace or interstitial process. No nodules. PLEURA: No pleural effusion. No pneumothorax. MEDIASTINUM AND LYMPH NODES: No mediastinal mass or fluid collection. Normal size mediastinal, hilar, and axillary lymph nodes. OSSEOUS STRUCTURES AND CHEST WALL: Intact. LIVER: Normal in size and contour. No focal lesion or biliary dilatation. Cholelithiasis. PANCREAS: No mass, ductal dilation, or roland-pancreatic fluid. SPLEEN: Normal size. No focal lesion. ADRENALS: Normal; no mass. KIDNEYS: Normal size and contour. No hydronephrosis. URINARY BLADDER: Normal contour. GASTROINTESTINAL TRACT: No bowel obstruction, free air, significant free fluid or abscess. APPENDIX: Normal appendix. LYMPH NODES: No lymphadenopathy. MUSCULOSKELETAL: Bilateral chronic spondylolysis L5-S1 with mild anterolisthesis. OTHER: Mild fibroid uterus. IMPRESSION: No acute or significant abnormalities seen in the chest, abdomen or pelvis. Cholelithiasis.
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
--- NOTE | 2024-09-25 15:46 | RAD REPORT ---
Exam:Hand Left 3 View CLINICAL HISTORY: Left hand pain FINDINGS: No fracture or dislocation seen
[2024-09-25 16:05] VITALS: BP 127/74; TEMP 97; O2SAT 100
== END 2024-09-25 15:38 | disposition home or self-care (01) ==
LOC: ER 10:58
DX: S29.011A Strain of muscle and tendon of front wall of thorax, initial encounter (principal); S29.012A Strain of muscle and tendon of back wall of thorax, initial encounter; S60.222A Contusion of left hand, initial encounter; V49.49XA Driver injured in collision with other motor vehicles in traffic accident, initial encounter; E11.9 Type 2 diabetes mellitus without complications; Z79.84 Long term (current) use of oral hypoglycemic drugs
CPT/HCPCS: 70450; 71250; 72125; 74176; 99283